=== PATIENT | male | born 1955 | race Caucasian/White ===

== ENCOUNTER → 2018-10-25 | Outpatient (CLI) | payer SELFPAY ==
[2015-11-28 20:03] VITALS: BMI 33.9
[2018-10-25 13:56] LABS: AST(SGOT) 24 U/L (15-37); Alanine Aminotransfer ALT/SGPT 33 U/L (16-61); Albumin, Serum 3.7 g/dL (3.2-5.0); Alkaline Phosphatase 87 U/L (45-117); Anion Gap 7 (5-15); BUN 12 mg/dL (7-18); BUN/Creat Ratio 10.7 RATIO (10-20); Calcium,Total 8.9 mg/dL (8.5-10.1); Chloride 104 mmol/L (98-107); Cholesterol 182 mg/dL (200); Creatinine, Serum 1.12 mg/dL (0.70-1.30); EST Glomerular Filtration Rate 71 mL/min (>60); Est Glom Filt Rate - Afr Amer 86 mL/min (>60); Globulin 3.8 g/dL (2.2-4.2); Glucose 144 mg/dL (74-106); High Density Lipoprotein 41 mg/dL; Potassium 3.7 mmol/L (3.5-5.1); Protein, Total 7.5 g/dL (6.4-8.2); Sodium Level 139 mmol/L (136-145); Triglycerides 144 mg/dL; Very Low Density Lipoprotein 29 mg/dL (5-40)
== END | disposition home or self-care (01) ==
PROVIDERS: Visit Provider Nurse Practitioner Family
DX: Z00.00 Encounter for general adult medical examination without abnormal findings (principal)
CPT/HCPCS: 36415; 80053; 80061

== ENCOUNTER → 2021-01-09 | Outpatient (CLI) | payer MEDICARE, SELFPAY | END | disposition home or self-care (01) | LOC: LABSPEC 16:29 | PROVIDERS: PCP Family Medicine; Referring Provider Family Medicine; Visit Provider Family Medicine | DX: U07.1 COVID-19 (principal) | CPT/HCPCS: 87635; U0005; U0003 ==

== ENCOUNTER 2021-01-11 08:13 | Inpatient (IN) | payer MEDICARE, SELFPAY ==
[2021-01-11] VITALS (21 sets, daily range): BP systolic 130–161; BP diastolic 80–112; PULSE 57–102; RESP 14–31; TEMP 36.2–38; O2SAT 85–94; BMI 36.1; BMI 78.4
--- NOTE | 2021-01-11 08:20 | RAD_ITS ---
STUDY: X-RAY CHEST REASON FOR EXAM: Male, 65 years old. Fever and cough TECHNIQUE: Single AP portable view of the chest. COMPARISON: None. FINDINGS: EKG leads overlie the chest Lungs are expanded with diffuse interstitial and airspace opacifications in both lung ochoa. No demonstrated effusions. This pattern of opacification is suspicious for Covid pneumonia, but can also be seen with pneumonitis or CHF. Normal size heart. Normal mediastinum and ajay. Normal visualized pulmonary arteries. Normal visualized aortic arch and descending thoracic aorta. Normal visualized thoracic spine. Normal visualized ribs, clavicles, and shoulders. There is no demonstrated abnormality of the visualized soft tissue structures of the upper abdomen. RAD/Chest 1 View (Portable) IMPRESSION: Diffuse interstitial and airspace opacifications in both lung ochoa without effusions. Differential as described. Electronically Signed: John Painter MD at 9:04 EDT , Service support ,
--- NOTE | 2021-01-11 08:20 | EKG12_ITS ---
Test Reason : SOB Blood Pressure : / mmHG Vent. Rate : 098 BPM Atrial Rate : 098 BPM P-R Int : 126 ms QRS Dur : 088 ms QT Int : 364 ms P-R-T Axes : 017 -29 -32 degrees QTc Int : 464 ms Normal sinus rhythm Voltage criteria for left ventricular hypertrophy Nonspecific ST and T wave abnormality Abnormal ECG Confirmed by HARRIET ORR, AVI ([id number]), art editor BAYLEE LEWIS ([id number]) on 01/13/2021 1:20:41 PM Referred By: RACHEL Confirmed By:AVI LARIOS MD
[2021-01-11 08:34] LABS: Absolute Lymphocyte Count 1.16 X10^3/uL (0.83-4.51); Absolute Neutrophil Count 2.9 X10^3/uL (2.0-7.7); Basophil# 0.02 X10^3/uL; Basophil% 0.4 % (0-1); Hematocrit 49.6 % (40-54); Hemoglobin 17.5 g/dL (13.0-16.5); Lymphocyte # 1.16 X10^3/ul (0.83-4.51); Lymphocyte % 24.7 % (19-41); Mean Corp Hgb Conc 35.3 g/dL (32-36); Mean Corpuscular Hgb 31.5 pg (27.0-32.0); Mean Corpuscular Volume 89.4 fL (80-94); Mean Platelet Vol. 10.9 fl (6.2-12.0); Monocyte# 0.56 X10^3/uL; Monocyte% 11.9 % (0-10); NRBC Flagged by Analyzer 0 % (0-5); Neutrophil # 2.92 X10^3/uL (2.7-7.7); Neutrophil % 62.4 % (47-70); Platelet Count 157 K/mm3 (150-450); RBC Distribution Width CV 13.2 % (11.6-14.6); Red Blood Count 5.55 M/mm3 (4.6-6.2); White Blood Count 4.7 K/mm3 (4.4-11.0)
[2021-01-11 08:50] LABS: ALB/GLOB Ratio 0.6 RATIO (0.9-2.4); AST(SGOT) 98 U/L (15-37); Alanine Aminotransfer ALT/SGPT 86 U/L (16-61); Alkaline Phosphatase 120 U/L (45-117); Anion Gap 9 (5-15); BUN 15 mg/dL (7-18); Calcium,Total 8.7 mg/dL (8.5-10.1); Chloride 99 mmol/L (98-107); Creatinine, Serum 1.15 mg/dL (0.70-1.30); EST Glomerular Filtration Rate 68 mL/min (>60); Est Glom Filt Rate - Afr Amer 83 mL/min (>60); Estimated Creatinine Clearance 72.16 ml/min; Glucose 109 mg/dL (74-106); Potassium 3.3 mmol/L (3.5-5.1); Sodium Level 136 mmol/L (136-145)
--- NOTE | 2021-01-11 08:50 | EDS_ITS ---
HPI History of Present Illness Chief Complaint: Shortness of Breath Informant: patient Onset/Context/Timing Onset: Days (10) Timing: Continuous Quality: Positive for Wheezing Worsened by: Nothing Relieved by: Nothing Associated Symptoms cough, fever and clear sputum; Negative for rhinorrhea, ear pain or sore throat Chest Pain: Positive for - (Patient only has chest pain with coughing.) Narrative Narrative: Patient presents with shortness of breath that has been getting worse over the past 10 days. Patient states family members have been diagnosed with COVID-19. Patient has not been vaccinated against COVID-19. Patient admits to fevers at home. Patient admits to cough with clear sputum. Patient states nothing makes his breathing better and nothing makes it worse. Patient denies any nausea or vomiting. Patient admits to diarrhea. Patient denies any melena or hematochezia. Patient denies any chest pain, he only states that it comes on when he coughs. PE Risk Factors: Negative for Cancer, OCP + Smoking + > 35, Prior DVT or PE, Recent surgery and Recent travel [facility] Medical History Hypertension Home Medications hydrochlorothiazide 12.5 mg PO DAILY 11/28/15 [History Last Taken Unknown] oxycodone-acetaminophen 1 - 2 tab PO Q4H PRN PRN #12 tab 11/28/15 [Rx Last Taken Unknown] paroxetine HCl 20 mg PO DAILY 11/28/15 [History Last Taken Unknown] ramipril [Altace] 10 mg PO DAILY 11/28/15 [History Last Taken Unknown] tamsulosin 0.4 mg PO DAILY 14 Days capsule 11/28/15 [Rx Last Taken Unknown] Allergy/AdvReac Type Severity Reaction Status Date / Time No Known Allergies Allergy Verified 11/28/15 20:22 Surgical History no surgical history no surgical history Social History Smoking Status: Former smoker ROS ROS ED Constitutional Constitutional ED: Reports fever(s); Denies chills Eyes Eyes: Denies blurry vision or change in vision ENT ENT ED: Denies rhinorrhea or sore throat Cardiovascular Cardiovascular: Denies chest pain or palpitations Respiratory/Chest Respiratory/Chest: Reports cough and dyspnea Gastrointestinal Gastrointestinal: Reports diarrhea; Denies nausea or vomiting Genitourinary Genitourinary ED: Denies dysuria or hematuria Musculoskeletal Musculoskeletal: Denies back pain or neck pain Integumentary Denies abscess or rash Neurologic Neurologic: Denies headache(s) or weakness Allergic/Immunologic Allergic/Immunologic ED: Denies mouth swelling or urticaria EXAM Physical Exam Const Vital Signs: 01/11/21 08:15 01/11/21 08:18 Temperature 100.4 F H 98.9 F Temperature Source Temporal Temporal Pulse Rate 83 83 Respiratory Rate 31 H 31 H Respiratory Effort Short of Breath Labored Blood Pressure 161/103 H 161/103 H Blood Pressure Mean 122 122 Pulse Ox 85 85 Oxygen Delivery Method Nasal Cannula Oxygen Flow Rate (L/min) 15 Positive well nourished and well developed General Appearance ED: well developed HEENT Reports moist mucous membranes Neck supple and no JVD Resp normal respiratory effort Auscultation: rhonchi lower bilaterally Cardio regular rate, regular rhythm and no murmurs GI normal to inspection, nondistended, normoactive bowel sounds and non-tender Palpation: soft Extremity normal to inspection General Extremety ED: Negative for edema or tenderness General Extremity: Negative for edema Neuro oriented x3, CN's II-XII intact bilaterally and no sensory deficits noted Sensorium / Orientation: alert Motor Exam: strength 5/5 throughout Psych mental status grossly normal Skin no rashes or lesions noted MDM MDM MDM Narrative Medical decision making narrative: Patient was placed on high flow nasal cannula at 15 L. Patient's initial pulse ox improved to 90% on this. Patient's pulse ox dropped to 85. Patient was then placed on BiPAP at 10 and 5. Patient was given Tylenol here. Patient was given dexamethasone here. Patient was given 6 puffs of albuterol inhaler. EKG was obtained. On my interpretation, it showed a normal sinus rhythm with a rate of 98. TN interval, QRS interval, and QTc intervals were all normal. [place] was normal. There are nonspecific ST-T wave changes. There is evidence of left ventricular hypertrophy. Portable chest x- ray was obtained. There is 1 view. On my interpretation, there is bilateral lower lobe infiltrates. There is no cardiomegaly. Bony thorax is normal. Radiologist also interpreted the x-rays and agrees. CBC was essentially within normal limits. Comprehensive metabolic profile showed a mild hypokalemia 3.3. AST was slightly elevated at 98. ALT was slightly elevated at 86. Alk phos was slightly elevated at 120. Lactate was normal at 1.9. Case was discussed with the hospitalist. He will admit the patient to his service. Lab Data Attestation: I reviewed the patient's lab results. Labs: Laboratory Results - last 24 hr 01/11/21 08:20 WBC 4.7 RBC 5.55 Hgb 17.5 H Hct 49.6 MCV 89.4 MCH 31.5 MCHC 35.3 RDW Std Deviation 43.0 RDW Coeff of Anusha 13.2 Plt Count 157 MPV 10.9 Immature Gran % (Auto) 0.600 Neut % (Auto) 62.4 Lymph % (Auto) 24.7 [place] % (Auto) 11.9 H Eos % (Auto) 0.0 Baso % (Auto) 0.4 Absolute Neuts (auto) 2.9 Absolute Lymphs (auto) 1.16 Nucleated RBC % 0 Radiography Chest X-Ray - ED: 1 View, Read by ED Physician, Read by Radiologist, Right Infiltrate and Left Infiltrate EKG Initial EKG: Attestation: I personally reviewed and interpreted this EKG as follows: Interpretation: Sinus Rhythm (98), No Acute Injury Pattern and Non- Specific ST Changes Comments: Left ventricular hypertrophy Prior EKG tracings: not available for review Treatment and Re-Evaluation Vital Sign Attestation:: Vital signs were reviewed prior to admission. They are improving. Critical Care Time Critical Care Time: Yes Critical care time (excluding procedures): 30-74 minutes (32), Including time spent:, Discussing w/Patient &/or Family/Head Swamper, Discussing w/Consultants, Arranging Admission or Transfer and Performing Direct Patient Care at Bedside Discharge Plan Dx/Rx/DC Orders Clinical Impression: Pneumonia due to COVID-19 virus, Hypoxia Disposition Disposition: Acute Care Hospital [facility]
[2021-01-11] MEDS: dexAMETHasone 4 MG/ML Vial 6 MG IV ×2 (08:52→13:08)
[2021-01-11] MEDS: Acetaminophen 500 MG Tablet 1000 MG PO (08:53)
[2021-01-11 09:03] LABS: Lactic Acid 1.9 mmol/L (0.4-1.9)
--- NOTE | 2021-01-11 09:46 | ED.RN ---
report called to farrukh narvaez
--- NOTE | 2021-01-11 10:55 | HP.PCM.HOS_ITS ---
HPI - General General Date of Admission: 01/11/21 Date of Service: 01/11/21 Chief Complaint: Shortness of breath HPI Narrative HERIBERTO LOMELI, is a 65 M who presents emergency room at [facility] with a chief complaint of shortness of breath. Patient states he has been feeling ill for approximately 10 days, several family members have tested positive for COVID-19, patient is unvaccinated. Patient complains of some diarr hea, he denies any nausea or vomiting. He admits to feeling feverish at home, he admits to cough with clear sputum production. Lab work done in the emergency room showed the patient have a normal white blood cell count, his temperature was 100.4, patient required nasal cannula oxygen at 15 L to maintain his pulse ox initially when he was admitted to the emergency room. Chemistry profile revealed a potassium of 3.3, patient's liver enzymes were elevated with an AST of 98, ALT of 86, alkaline phosphatase of 120. Patient had a chest x-ray which showed diffuse bilateral infiltrates. Patient was transitioned to BiPAP in the ER to maintain his oxygenation. Patient will be admitted to ICU for COVID-19 pneumonia with acute hypoxic respiratory failure. Patient will be seen by infectious diseases and critical care. [facility] Medical History Hypertension Home Medications hydrochlorothiazide 12.5 mg PO DAILY 11/28/15 [History Last Taken Unknown] oxycodone-acetaminophen 1 - 2 tab PO Q4H PRN PRN #12 tab 11/28/15 [Rx Last Taken Unknown] paroxetine HCl 20 mg PO DAILY 11/28/15 [History Last Taken Unknown] ramipril [Altace] 10 mg PO DAILY 11/28/15 [History Last Taken Unknown] tamsulosin 0.4 mg PO DAILY 14 Days capsule 11/28/15 [Rx Last Taken Unknown] Allergy/AdvReac Type Severity Reaction Status Date / Time No Known Allergies Allergy Verified 11/28/15 20:22 Family History unable to obtain Surgical History no surgical history Social History Smoking Status: Current some day smoker tobacco type: cigars ROS Constitutional Constitutional: Reports chills, fatigue, fever(s), malaise and weakness; Denies anorexia, change in weight or night sweats Eyes Eyes: Denies blurry vision, change in vision, discharge from eye(s) or eye pain Cardiovascular Cardiovascular: Denies chest pain, claudication, edema or palpitations Respiratory/Chest Respiratory/Chest: Reports cough, shortness of breath at rest and shortness of breath with exertion Gastrointestinal Gastrointestinal: Reports diarrhea; Denies abdominal pain, coffee ground emesis, constipation, dyspepsia, hematemesis, hematochezia, melena, nausea or vomiting Genitourinary Genitourinary: Denies dysuria, hematuria, urinary frequency, urinary hesitancy, urinary incontinence or urinary urgency Musculoskeletal Musculoskeletal: Denies back pain, joint pain, joint stiffness, joint swelling, myalgias or neck pain Neurologic Neurologic: Denies abnormal gait, abnormal speech, confusion, disequilibrium, dizziness, focal weakness, headache(s), loss of vision, numbness, other visual disturbances, paresthesias, syncope or tingling Psychiatric Psychiatric: Denies anxiety, cognitive impairment, depression, irritability, mood swings or suicidal ideation Endocrine Endocrinology: Denies change in body appearance, cold intolerance, excessive sweating, heat intolerance, polydipsia or polyuria Hematologic/Lymphatic Hematologic/Lymphatic: Denies none, anemia, easy bleeding, easy bruising or lymphadenopathy Allergic/Immunologic Allergic/Immunologic: Denies rhinitis, urticaria, eczemia or asthma Vital Signs Vital Signs Vital Signs: 01/11/21 08:15 01/11/21 08:18 01/11/21 08:56 Temperature 100.4 F H 98.9 F Temperature Source Temporal Temporal Pulse Rate 83 83 98 Respiratory Rate 31 H 31 H 20 H Respiratory Effort Short of Breath Labored Respiratory Pattern Tachypnea Blood Pressure 161/103 H 161/103 H Blood Pressure [BP] Blood Pressure Mean 122 122 Blood Pressure Mean [BP] Blood Pressure Source Blood Pressure Source [BP] Blood Pressure Position Blood Pressure Position [BP] Blood Pressure Location Blood Pressure Location [BP] Pulse Ox 85 85 92 Oxygen Delivery Method Nasal Cannula Oxygen Flow Rate (L/min) 15 Fraction of Inspired Oxygen (FIO2) 80 01/11/21 08:57 01/11/21 09:05 01/11/21 09:42 Temperature 98.9 F Temperature Source Temporal Pulse Rate 102 H Respiratory Rate 25 H Respiratory Effort Respiratory Pattern Blood Pressure 137/85 H Blood Pressure [BP] Blood Pressure Mean 102 Blood Pressure Mean [BP] Blood Pressure Source Blood Pressure Source [BP] Blood Pressure Position Blood Pressure Position [BP] Blood Pressure Location Blood Pressure Location [BP] Pulse Ox 87 92 92 Oxygen Delivery Method Nasal Cannula Bi-pap Bi-pap Oxygen Flow Rate (L/min) 15 Fraction of Inspired Oxygen (FIO2) 01/11/21 10:05 Temperature 97.2 F L Temperature Source Temporal Pulse Rate 86 Respiratory Rate 20 H Respiratory Effort Respiratory Pattern Blood Pressure 159/89 H Blood Pressure [BP] 159/89 H Blood Pressure Mean 112 Blood Pressure Mean [BP] 112 Blood Pressure Source Monitor Blood Pressure Source [BP] Monitor Blood Pressure Position Semi-Fowlers Blood Pressure Position [BP] Semi-Fowlers Blood Pressure Location Right Arm Blood Pressure Location [BP] Left Arm Pulse Ox 92 Oxygen Delivery Method Bi-pap Oxygen Flow Rate (L/min) Fraction of Inspired Oxygen (FIO2) 30 Weight Weight: 262.2 kg Body Mass Index (BMI) 78.4 Physical Exam Const alert, oriented x3, no apparent distress, average body habitus and healthy appearing General Appearance: cooperative, well kempt and well developed Orientation / Consciousness: awake, oriented to person, oriented to place and oriented to time HEENT normocephalic, head/scalp atraumatic, hearing grossly normal bilaterally and moist oral mucous membranes Eyes PERRL, EOMs intact bilaterally and conjunctivae normal Neck nuchal rigidity, supple, no JVD, thyroid normal and no carotid bruits General: trachea midline Resp normal respiratory effort, no retractions and no use of accessory muscles Resp Narrative: Patient's breath sounds are distant bilaterally Auscultation: Negative for rales, rhonchi or wheezes Cardio regular rate, regular rhythm, S1 normal heart sound, S2 normal heart sound, no murmurs, no rub and no gallops GI normal to inspection, nondistended, normoactive bowel sounds, soft to palpation, non-tender and non-distended Extremity normal to inspection and no clubbing, cyanosis or edema Skin no rashes or lesions noted, no wounds, skin turgor normal and no jaundice General Skin Exam: no breakdown Neuro oriented x3, CN's II-XII intact bilaterally, no focal motor deficits and no sensory deficits noted Sensorium / Orientation: awake and alert Speech: speech normal Psych thought process normal and affect normal Results Lab / Micro Data Result Diagrams: 01/11/21 08:20 01/11/21 08:20 Labs: Laboratory Results - last 24 hr 01/11/21 08:20: WBC 4.7, RBC 5.55, Hgb 17.5 H, Hct 49.6, MCV 89.4, MCH 31.5, MCHC 35.3, RDW Std Deviation 43.0, RDW Coeff of Anusha 13.2, Plt Count 157, MPV 10.9, Immature Gran % (Auto) 0.600, Neut % (Auto) 62.4, Lymph % (Auto) 24.7, [place] % (Auto) 11.9 H, Eos % (Auto) 0.0, Baso % (Auto) 0.4, Absolute Neuts (auto) 2.9, Absolute Lymphs (auto) 1.16, Nucleated RBC % 0 01/11/21 08:20: Sodium 136, Potassium 3.3 L, Chloride 99, Carbon Dioxide 28.0, Anion Gap 9, BUN 15, Creatinine 1.15, Estim Creat Clear Calc 72.16, Est GFR (MDRD) Af Amer 83, Est GFR (MDRD) Non-Af 68, BUN/Creatinine Ratio 13.0, Glucose 109 H, Calcium 8.7, Total Bilirubin 1.00, AST 98 H, ALT 86 H, Alkaline Phosphatase 120 H, Total Protein 8.0, Albumin 3.0 L, Globulin 5.0 H, Albumin/Globulin Ratio 0.6 L 01/11/21 08:20: Lactic Acid 1.9 Micro: Microbiology 01/11/21 08:30 Nasal Secretion SARS-CoV-2 Antigen (Rapid) - Final SARS-CoV-2 (COVID 19) Radiology Impression Chest X-Ray 01/11/21 08:20 IMPRESSION: Diffuse interstitial and airspace opacifications in both lung ochoa without effusions. Differential as described. Electronically Signed: John Painter MD at 9:04 EDT , Service support , Assessment & Plan Assessment/Plan (1) Pneumonia due to COVID-19 virus: PLAN: 1. COVID-19 pneumonia-I contacted infectious diseases, they have approved the use of baricitinib on this patient, patient will be admitted to the ICU, in addition he will be placed on remdesivir and dexamethasone, critical care will see the patient as well as infectious diseases. #2 acute hypoxic respiratory failure-patient currently is on BiPAP #3 hypokalemia-patient will receive oral potassium supplementation #4 hypertension-patient is on hydrochlorothiazide, I have elected to place the patient on Lasix instead on a daily basis, he will get Lasix 20 mg p.o. daily. Patient wants to be a full code Charges/Coding Visit Charges Inpatient E&M: 15139 Init Hosp L3
[2021-01-11 11:10] LABS: D-Dimer Quantitative (DVT/PE) 0.85 FEU/ug/m (0.27-0.49)
[2021-01-11] MEDS: Enoxaparin 40 MG/0.4 ML Syringe SC (13:05)
[2021-01-11] MEDS: Tamsulosin HCl 0.4 MG Capsule PO (13:06)
[2021-01-11] MEDS: Potassium Chloride Oral Tablet 20 MEQ 40 MEQ PO (13:06)
[2021-01-11] MEDS: Ramipril 10 MG Capsule PO (13:06)
[2021-01-11] MEDS: Furosemide 20 MG Tablet PO (13:07)
[2021-01-11] MEDS: Paroxetine 20 MG Tablet PO (13:07)
[2021-01-12] VITALS (29 sets, daily range): BP systolic 100–143; BP diastolic 35–117; PULSE 59–92; RESP 14–29; TEMP 36.2–36.6; O2SAT 21–95
[2021-01-12 05:08] LABS: Absolute Lymphocyte Count 1.05 X10^3/uL (0.83-4.51); Absolute Neutrophil Count 2.1 X10^3/uL (2.0-7.7); Basophil# 0.02 X10^3/uL; Basophil% 0.5 % (0-1); Hematocrit 47.7 % (40-54); Hemoglobin 16.4 g/dL (13.0-16.5); Lymphocyte # 1.05 X10^3/ul (0.83-4.51); Lymphocyte % 26.6 % (19-41); Mean Corp Hgb Conc 34.4 g/dL (32-36); Mean Corpuscular Volume 90.2 fL (80-94); Mean Platelet Vol. 10.8 fl (6.2-12.0); Monocyte# 0.77 X10^3/uL; Monocyte% 19.5 % (0-10); NRBC Flagged by Analyzer 0 % (0-5); Neutrophil # 2.08 X10^3/uL (2.7-7.7); Neutrophil % 52.9 % (47-70); POSITIVE MORPHOLOGY YES; Platelet Count 182 K/mm3 (150-450); RBC Distribution Width CV 13.4 % (11.6-14.6); RBC Distribution Width SD 44.7 fl (35.1-43.9); Red Blood Count 5.29 M/mm3 (4.6-6.2); White Blood Count 3.9 K/mm3 (4.4-11.0)
[2021-01-12 05:09] LABS: Differential Indicated SCAN CRITERIA MET
[2021-01-12 05:34] LABS: ALB/GLOB Ratio 0.6 RATIO (0.9-2.4); AST(SGOT) 92 U/L (15-37); Alanine Aminotransfer ALT/SGPT 92 U/L (16-61); Albumin, Serum 2.7 g/dL (3.2-5.0); Alkaline Phosphatase 106 U/L (45-117); Anion Gap 9 (5-15); BUN 28 mg/dL (7-18); BUN/Creat Ratio 15.6 RATIO (10-20); Calcium,Total 8.5 mg/dL (8.5-10.1); Chloride 101 mmol/L (98-107); Creatinine, Serum 1.79 mg/dL (0.70-1.30); EST Glomerular Filtration Rate 41 mL/min (>60); Est Glom Filt Rate - Afr Amer 50 mL/min (>60); Estimated Creatinine Clearance 46.36 ml/min; Globulin 4.7 g/dL (2.2-4.2); Glucose 133 mg/dL (74-106); Potassium 3.7 mmol/L (3.5-5.1); Protein, Total 7.4 g/dL (6.4-8.2); Sodium Level 138 mmol/L (136-145)
--- NOTE | 2021-01-12 06:42 | CON.PCM.CC_ITS ---
Assessment & Plan Assessment/Plan (1) Pneumonia due to COVID-19 virus: PLAN: RECOMMENDATIONS: 1. Continue BiPAP therapy and wean FiO2 for saturations greater than 90%. 2. Continue remdesivir to complete 5-day treatment course. Continue to monitor liver and renal function. 3. Continue Decadron to complete 10 days of therapy. 4. Continue baricitinib per ID recommendations. 5. Discontinue Lasix, given interval development of CASSANDRA. 6. Increase Lovenox dosing to twice daily. 7. Awake prone positioning was encouraged. 8. Patient should remain n.p.o., while requiring continuous PAP support. IMPRESSIONS: 1. Acute hypoxemic respiratory failure secondary to COVID-19 pneumonia Continue supportive measures including noninvasive positive pressure ventilatory support and wean FiO2 as tolerated for saturations greater than 90%. The patient has been initiated on appropriate medical therapy including remdesivir, Decadron, Lovenox and baricitinib. Continue to monitor liver and renal function. Recommend holding diuretics for now given interval development of CASSANDRA. His Lovenox dosing will also be increased to twice daily. 2. Acute kidney injury Likely prerenal in etiology. Lasix was discontinued today. Continue to monitor urine output for now. No current indication for renal replacement therapy. TIME: 34 minutes of critical care time, independent of procedures, was spent addressing the patient's acute hypoxemic respiratory failure secondary to COVID- 19 pneumonia, acute kidney injury, review of all data and collaboration with the care team. ([id number]) HPI Consult Data Date of Consult: 01/12/21 HPI Narrative Reason for Consultation: Acute hypoxemic respiratory failure secondary to COVID- 19 pneumonia HPI Narrative: The patient is a 65-year-old male, with a history as outlined below, who presented to the emergency department on January 11 with worsening shortness of breath and nonproductive cough. Symptom onset was approximately January 01. The patient has noted associated fevers and diarrhea. The patient is unvaccinated. Several family members have recently tested positive for COVID-19. On presentation to the emergency department, the patient was noted to have a low-grade fever but was otherwise hemodynamically stable. The patient was, nevertheless, tachypneic and hypoxemic. Initial laboratory evaluation revealed no evidence of a leukocytosis. D-dimer was noted to be 0.85. Chemistry profile was notable for a potassium of 3.3. Creatinine was normal at 1.15. Lactate was within normal limits. AST and ALT were mildly increased to 98 and 86, respectively. Chest imaging demonstrated diffuse bilateral airspace disease. Rapid coronavirus antigen testing was positive on January 11. The patient was subsequently admitted to the medical intensive care unit for further management. Overnight, the patient was placed on BiPAP and is currently requiring 70% FiO2. The patient has been started on remdesivir, Decadron, Lovenox and baricitinib. Creatinine has increased this morning to 1.79. Liver function is stable. [facility] Medical History Hypertension Home Medications hydrochlorothiazide 12.5 mg PO DAILY 11/28/15 [History Last Taken Unknown] oxycodone-acetaminophen 1 - 2 tab PO Q4H PRN PRN #12 tab 11/28/15 [Rx Last Taken Unknown] paroxetine HCl 20 mg PO QHS 11/28/15 [History Last Taken Unknown] ramipril [Altace] 10 mg PO DAILY 11/28/15 [History Last Taken Unknown] tamsulosin 0.4 mg PO DAILY 14 Days capsule 11/28/15 [Rx Last Taken Unknown] Allergy/AdvReac Type Severity Reaction Status Date / Time No Known Allergies Allergy Verified 11/28/15 20:22 Family History unable to obtain Surgical History no surgical history Social History Smoking Status: Current some day smoker tobacco type: cigars ROS Constitutional Constitutional: Reports chills, fatigue and fever(s) Eyes Eyes: Denies blurry vision or change in vision ENT HEENT: Denies dizziness, epistaxis, nasal congestion or nasal discharge Cardiovascular Cardiovascular: Reports dyspnea; Denies edema Respiratory/Chest Respiratory/Chest: Reports cough and dyspnea Gastrointestinal Gastrointestinal: Reports diarrhea; Denies nausea or vomiting Genitourinary Genitourinary: Denies difficulty urinating or dysuria Musculoskeletal Musculoskeletal: Denies arthralgias or back pain Integumentary Integumentary: Denies lesions, rash or skin ulcer Neurologic Neurologic: Denies abnormal gait or abnormal speech Psychiatric Psychiatric: Denies anxiety or depression Endocrine Endocrinology: Reports fatigue Hematologic/Lymphatic Hematologic/Lymphatic: Denies easy bleeding or easy bruising Physical Exam Const alert General Appearance: cooperative, comfortable and on BiPAP Nutritional Appearance: obese HEENT normocephalic, head/scalp atraumatic and moist oral mucous membranes Eyes PERRL, EOMs intact bilaterally and conjunctivae normal Neck supple General: trachea midline Chest inspection of chest normal Resp no use of accessory muscles Effort and Inspection: able to speak in complete sentences Auscultation: diminished lung sounds; Negative for rales, rhonchi or wheezes Cardio regular rate and regular rhythm GI normal to inspection, nondistended, normoactive bowel sounds Extremity no clubbing, cyanosis or edema Skin no rashes or lesions noted Neuro CN's II-XII intact bilaterally, moves all extremities and no focal motor deficits Psych cooperative and affect normal Lab / Micro Data Result Diagrams: 01/12/21 04:58 01/12/21 04:58 Labs: Laboratory Results - last 24 hr 01/11/21 08:20: WBC 4.7, RBC 5.55, Hgb 17.5 H, Hct 49.6, MCV 89.4, MCH 31.5, MCHC 35.3, RDW Std Deviation 43.0, RDW Coeff of Anusha 13.2, Plt Count 157, MPV 10.9, Immature Gran % (Auto) 0.600, Neut % (Auto) 62.4, Lymph % (Auto) 24.7, [place] % (Auto) 11.9 H, Eos % (Auto) 0.0, Baso % (Auto) 0.4, Absolute Neuts (auto) 2.9, Absolute Lymphs (auto) 1.16, Nucleated RBC % 0 01/11/21 08:20: Sodium 136, Potassium 3.3 L, Chloride 99, Carbon Dioxide 28.0, Anion Gap 9, BUN 15, Creatinine 1.15, Estim Creat Clear Calc 72.16, Est GFR (MDRD) Af Amer 83, Est GFR (MDRD) Non-Af 68, BUN/Creatinine Ratio 13.0, Glucose 109 H, Calcium 8.7, Total Bilirubin 1.00, AST 98 H, ALT 86 H, Alkaline Phosphatase 120 H, Total Protein 8.0, Albumin 3.0 L, Globulin 5.0 H, Albumin/Globulin Ratio 0.6 L 01/11/21 08:20: Lactic Acid 1.9 01/11/21 08:20: D-Dimer Quant (PE/DVT) 0.85 H* 01/12/21 04:58: WBC 3.9 L, RBC 5.29, Hgb 16.4, Hct 47.7, MCV 90.2, MCH 31.0, MCHC 34.4, RDW Std Deviation 44.7 H, RDW Coeff of Anusha 13.4, Plt Count 182, MPV 10.8, Immature Gran % (Auto) 0.500, Neut % (Auto) 52.9, Lymph % (Auto) 26.6, [place] % (Auto) 19.5 H, Eos % (Auto) 0.0, Baso % (Auto) 0.5, Absolute Neuts (auto) 2.1, Absolute Lymphs (auto) 1.05, Nucleated RBC % 0 01/12/21 04:58: Sodium 138, Potassium 3.7, Chloride 101, Carbon Dioxide 28.0, Anion Gap 9, BUN 28 H, Creatinine 1.79 H, Estim Creat Clear Calc 46.36, Est GFR (MDRD) Af Amer 50 L, Est GFR (MDRD) Non-Af 41 L, BUN/Creatinine Ratio 15.6, Glucose 133 H, Calcium 8.5, Total Bilirubin 0.80, AST 92 H, ALT 92 H, Alkaline Phosphatase 106, Total Protein 7.4, Albumin 2.7 L, Globulin 4.7 H, Albumin/Globulin Ratio 0.6 L Micro: Microbiology 01/11/21 08:30 Nasal Secretion SARS-CoV-2 Antigen (Rapid) - Final SARS-CoV-2 (COVID 19) Radiology Impression Chest X-Ray 01/11/21 08:20 IMPRESSION: Diffuse interstitial and airspace opacifications in both lung ochoa without effusions. Differential as described. Electronically Signed: John Painter MD at 9:04 EDT , Service support , Charges/Coding Procedures Hospitalists Procedures: [id number] Critial Care 1st Hr
[2021-01-12 07:00] LABS: Atypical Lymphocyte 1+ %; Reactive Lymphocyte 1+
[2021-01-12] MEDS: Enoxaparin 40 MG/0.4 ML Syringe SC ×2 (09:29→21:10)
[2021-01-12] MEDS: Ramipril 10 MG Capsule PO (09:30)
[2021-01-12] MEDS: Paroxetine 20 MG Tablet PO (09:30)
[2021-01-12] MEDS: Tamsulosin HCl 0.4 MG Capsule PO ×2 (09:30→21:09)
--- NOTE | 2021-01-12 17:00 | PN.HOSP_ITS ---
Subjective Subjective Patient was seen and examined today in ICU, he remains on Airvo at this time, he does not complain of any shortness of breath at rest Objective Data Objective Data Vital Signs: Vital Signs Temp Pulse Resp BP Pulse Ox 97.1 F L 72 22 H 112/67 91 01/12/21 08:00 01/12/21 16:56 01/12/21 16:56 01/12/21 16:00 01/12/21 16:56 Oxygen Flow Rate (L/min) 60 Oxygen Delivery Method Airvo Weight: 118.932 kg Body Mass Index (BMI) 78.4 Intake & Output: Intake and Output for Last 24 Hours 01/10/21 01/11/21 01/12/21 23:59 23:59 23:59 Intake Total 650 / 650 550 / 550 Output Total 300 / 300 Balance 350 / 350 550 / 550 Lab / Micro Data Result Diagrams: 01/12/21 04:58 01/12/21 04:58 Labs: Laboratory Results - last 24 hr 01/12/21 04:58: WBC 3.9 L, RBC 5.29, Hgb 16.4, Hct 47.7, MCV 90.2, MCH 31.0, MCHC 34.4, RDW Std Deviation 44.7 H, RDW Coeff of Anusha 13.4, Plt Count 182, MPV 10.8, Immature Gran % (Auto) 0.500, Neut % (Auto) 52.9, Lymph % (Auto) 26.6, [place] % (Auto) 19.5 H, Eos % (Auto) 0.0, Baso % (Auto) 0.5, Absolute Neuts (auto) 2.1, Absolute Lymphs (auto) 1.05, Nucleated RBC % 0, Diff Path Review May foll, Atypical Lymphocytes 1+, Reactive Lymphocytes 1+ 01/12/21 04:58: Sodium 138, Potassium 3.7, Chloride 101, Carbon Dioxide 28.0, Anion Gap 9, BUN 28 H, Creatinine 1.79 H, Estim Creat Clear Calc 46.36, Est GFR (MDRD) Af Amer 50 L, Est GFR (MDRD) Non-Af 41 L, BUN/Creatinine Ratio 15.6, Glucose 133 H, Calcium 8.5, Total Bilirubin 0.80, AST 92 H, ALT 92 H, Alkaline Phosphatase 106, Total Protein 7.4, Albumin 2.7 L, Globulin 4.7 H, Albumin/Globulin Ratio 0.6 L 01/12/21 04:58: C-React Prot Ext Range 71.40 H Micro: Microbiology 01/11/21 08:30 Nasal Secretion SARS-CoV-2 Antigen (Rapid) - Final SARS-CoV-2 (COVID 19) Physical Exam Narrative alert, oriented x3, no apparent distress, average body habitus and healthy appearing General Appearance: cooperative, well kempt and well developed Orientation / Consciousness: awake, oriented to person, oriented to place and oriented to time HEENT normocephalic, head/scalp atraumatic, hearing grossly normal bilaterally and moist oral mucous membranes Eyes PERRL, EOMs intact bilaterally and conjunctivae normal Neck nuchal rigidity, supple, no JVD, thyroid normal and no carotid bruits General: trachea midline Resp normal respiratory effort, no retractions and no use of accessory muscles Resp Narrative: Patient's breath sounds are distant bilaterally Auscultation: Negative for rales, rhonchi or wheezes Cardio regular rate, regular rhythm, S1 normal heart sound, S2 normal heart sound, no murmurs, no rub and no gallops GI normal to inspection, nondistended, normoactive bowel sounds, soft to palpation, non-tender and non-distended Extremity normal to inspection and no clubbing, cyanosis or edema Skin no rashes or lesions noted, no wounds, skin turgor normal and no jaundice General Skin Exam: no breakdown Neuro oriented x3, CN's II-XII intact bilaterally, no focal motor deficits and no sensory deficits noted Sensorium / Orientation: awake and alert Speech: speech normal Psych thought process normal and affect normal Assessment & Plan Assessment/Plan (1) Pneumonia due to COVID-19 virus: PLAN: 1. COVID-19 pneumonia-patient remains on remdesivir, dexamethasone, and baricitinib, pulmonary medicine is participating in his care #2 acute hypoxic respiratory failure-patient currently is on Airvo #3 hypokalemia-resolved #4 hypertension. #5 acute kidney injury-patient's diuretics will be held for now Patient wants to be a full code Charges/Coding Visit Charges Inpatient E&M: 75553 Subs Hosp L2
[2021-01-12] MEDS: Acetaminophen 325 MG Tablet 650 MG PO (21:08)
[2021-01-13] VITALS (31 sets, daily range): BP systolic 116–161; BP diastolic 60–103; PULSE 74–93; RESP 14–30; TEMP 36.2–36.8; O2SAT 87–97
[2021-01-13 04:45] LABS: Absolute Lymphocyte Count 1.99 X10^3/uL (0.83-4.51); Basophil# 0.01 X10^3/uL; Basophil% 0.1 % (0-1); Hematocrit 47.2 % (40-54); Hemoglobin 16.1 g/dL (13.0-16.5); Lymphocyte # 1.99 X10^3/ul (0.83-4.51); Lymphocyte % 22.5 % (19-41); Mean Corp Hgb Conc 34.1 g/dL (32-36); Mean Corpuscular Volume 90.8 fL (80-94); Monocyte# 0.83 X10^3/uL; Monocyte% 9.4 % (0-10); NRBC Flagged by Analyzer 0 % (0-5); Neutrophil # 5.97 X10^3/uL (2.7-7.7); Neutrophil % 67.3 % (47-70); POSITIVE MORPHOLOGY YES; Platelet Count 233 K/mm3 (150-450); RBC Distribution Width CV 13.6 % (11.6-14.6); RBC Distribution Width SD 45.8 fl (35.1-43.9); White Blood Count 8.9 K/mm3 (4.4-11.0)
[2021-01-13 04:49] LABS: Differential Indicated SCAN CRITERIA MET
[2021-01-13 05:03] LABS: ALB/GLOB Ratio 0.6 RATIO (0.9-2.4); AST(SGOT) 95 U/L (15-37); Alanine Aminotransfer ALT/SGPT 100 U/L (16-61); Albumin, Serum 2.8 g/dL (3.2-5.0); Alkaline Phosphatase 99 U/L (45-117); Anion Gap 13 (5-15); BUN 49 mg/dL (7-18); BUN/Creat Ratio 22.2 RATIO (10-20); Calcium,Total 8.5 mg/dL (8.5-10.1); Chloride 101 mmol/L (98-107); Creatinine, Serum 2.21 mg/dL (0.70-1.30); EST Glomerular Filtration Rate 32 mL/min (>60); Est Glom Filt Rate - Afr Amer 39 mL/min (>60); Estimated Creatinine Clearance 37.55 ml/min; Globulin 4.5 g/dL (2.2-4.2); Glucose 124 mg/dL (74-106); Potassium 3.2 mmol/L (3.5-5.1); Protein, Total 7.3 g/dL (6.4-8.2); Sodium Level 139 mmol/L (136-145)
--- NOTE | 2021-01-13 09:00 | PN.CC_ITS ---
Assessment & Plan Assessment/Plan (1) Pneumonia due to COVID-19 virus: PLAN: RECOMMENDATIONS: 1. Continue BiPAP therapy and wean FiO2 for saturations greater than 90%. Attempt Airvo if possible 2. Continue remdesivir to complete 5-day treatment course. Continue to monitor liver and renal function. 3. Continue Decadron to complete 10 days of therapy. 4. Continue baricitinib per ID recommendations. 5. Continue to hold Lasix, given interval development of CASSANDRA. 6. Increase Lovenox dosing to twice daily. 7. Awake prone positioning was encouraged. 8. Patient should remain n.p.o., while requiring continuous PAP support. IMPRESSIONS: 1. Acute hypoxemic respiratory failure secondary to COVID-19 pneumonia Continue supportive measures including noninvasive positive pressure ventilatory support and wean FiO2 as tolerated for saturations greater than 90%. The patient has been initiated on appropriate medical therapy including remdesivir, Decadron, Lovenox and baricitinib. Continue to monitor liver and renal function. Recommend holding diuretics for now given interval development of CASSANDRA. Continue Lovenox at current dosing. Encourage supportive measures such as incentive spirometer, Acapella and prone positioning to help with oxygenation. Patient appears to be precontemplative. 2. Acute kidney injury Likely prerenal in etiology. Lasix was discontinued today. Continue to monitor urine output for now. No current indication for renal replacement therapy. Subjective Subjective Patient did okay overnight. No acute issues were reported. Nursing has reported patient is not overly compliant with incentive spirometer. Objective Data Objective Data Vital Signs: Vital Signs Temp Pulse Resp BP Pulse Ox 36.6 C 83 24 H 143/76 H 90 01/12/21 20:00 01/13/21 07:00 01/13/21 07:00 01/13/21 07:00 01/13/21 07:41 Oxygen Flow Rate (L/min) 60 Oxygen Delivery Method Airvo Weight: 119.311 kg Body Mass Index (BMI) 78.4 Intake & Output: Intake and Output for Last 24 Hours 01/11/21 01/12/21 01/13/21 23:59 23:59 23:59 Intake Total 650 / 650 558 / 558 Output Total 300 / 300 480 / 480 200 / 200 Balance 350 / 350 78 / 78 -200 / -200 Lab / Micro Data Result Diagrams: 01/13/21 04:00 01/13/21 04:00 Labs: Laboratory Results - last 24 hr 01/12/21 04:58: C-React Prot Ext Range 71.40 H 01/13/21 04:00: WBC 8.9, RBC 5.20, Hgb 16.1, Hct 47.2, MCV 90.8, MCH 31.0, MCHC 34.1, RDW Std Deviation 45.8 H, RDW Coeff of Anusha 13.6, Plt Count 233, MPV 11.0, Immature Gran % (Auto) 0.700, Neut % (Auto) 67.3, Lymph % (Auto) 22.5, [place] % (Auto) 9.4, Eos % (Auto) 0.0, Baso % (Auto) 0.1, Absolute Neuts (auto) 6.0, Absolute Lymphs (auto) 1.99, Nucleated RBC % 0 01/13/21 04:00: Sodium 139, Potassium 3.2 L, Chloride 101, Carbon Dioxide 25.0, Anion Gap 13, BUN 49 H, Creatinine 2.21 H, Estim Creat Clear Calc 37.55, Est GFR (MDRD) Af Amer 39 L, Est GFR (MDRD) Non-Af 32 L, BUN/Creatinine Ratio 22.2 H, Glucose 124 H, Calcium 8.5, Total Bilirubin 0.90, AST 95 H, ALT 100 H, Alkaline Phosphatase 99, Total Protein 7.3, Albumin 2.8 L, Globulin 4.5 H, Albumin/Globulin Ratio 0.6 L Micro: Microbiology 01/11/21 08:35 Blood Culture (Wb) - Left Hand Blood Culture - Preliminary No growth in 48 hours. 01/11/21 08:20 Blood Culture (Wb) - Anticubital Left Blood Culture - Preliminary No growth in 48 hours. 01/11/21 08:30 Nasal Secretion SARS-CoV-2 Antigen (Rapid) - Final SARS-CoV-2 (COVID 19) Physical Exam Const alert General Appearance: cooperative, comfortable and on BiPAP Nutritional Appearance: obese HEENT normocephalic, head/scalp atraumatic and moist oral mucous membranes Eyes PERRL, EOMs intact bilaterally and conjunctivae normal Neck supple General: trachea midline Chest inspection of chest normal Resp no use of accessory muscles Effort and Inspection: able to speak in complete sentences Auscultation: diminished lung sounds; Negative for rales, rhonchi or wheezes Cardio regular rate and regular rhythm GI normal to inspection, nondistended, normoactive bowel sounds Extremity no clubbing, cyanosis or edema Skin no rashes or lesions noted Neuro CN's II-XII intact bilaterally, moves all extremities and no focal motor deficits Psych cooperative and affect normal Charges/Coding Visit Charges Inpatient E&M: 06682 Subs Hosp L3
[2021-01-13] MEDS: Enoxaparin 40 MG/0.4 ML Syringe SC ×2 (11:32→20:44)
[2021-01-13] MEDS: Potassium Chloride Oral Soln 20 MEQ/15 ML UDC 40 MEQ PO (11:33)
[2021-01-13] MEDS: dexAMETHasone 4 MG/ML Vial 6 MG IV (11:33)
[2021-01-13] MEDS: 0.9% Saline Lock 10 ML Syringe IV (11:33)
[2021-01-13] MEDS: Paroxetine 20 MG Tablet PO (11:33)
[2021-01-13] MEDS: Tamsulosin HCl 0.4 MG Capsule PO ×2 (11:33→20:44)
--- NOTE | 2021-01-13 12:00 | CASEMGMT ---
RN CM Face to Face with patient for initial transition planning/care coordination assessment. RN CM introduced self and role at [facility]. Patient sitting in chair, alert and oriented. Patient willing to participate in assessment and is able to answer all questions appropriately. Care providers, pharmacy, and demographics verified. Patient wishes to discharge home, will monitor for need for home oxygen and HHC. Patient states he has no further needs or concerns at this time. CM to follow for discharge planning needs that may arise. PCP: Lisa Specialists: none Preferred Pharmacy: [facility] Insurance: none Prescription Benefit: none Living Will/HPOA: yes, Alejandrina Horne LNOK: , son Living Arrangements: Patient lives with and son in a single story home with no steps. Patient states he is independent at home. Transportation: self/family DME/HHC: Patient denies current DME or previous HHC. Patient has no preferences for DME. Patient states covid testing was completed at [facility] drive thru testing. Disposition Plan: Patient to discharge home with family support and follow-up plans in place. Will monitor for HHC and home oxygen. Rebecca PECK, RN, CM
--- NOTE | 2021-01-13 12:46 | PN.HOSP_ITS ---
Subjective Subjective Doing well, no new issues overnight. We'll continue to encourage pulmonary toileting especially with incentive spirometer Objective Data Objective Data Vital Signs: Vital Signs Temp Pulse Resp BP Pulse Ox 97.9 F 74 24 H 143/76 H 90 01/12/21 20:00 01/13/21 08:00 01/13/21 07:00 01/13/21 07:00 01/13/21 07:41 Oxygen Flow Rate (L/min) 60 Oxygen Delivery Method Airvo Weight: 263 lb 0.579 oz Body Mass Index (BMI) 78.4 Intake & Output: Intake and Output for Last 24 Hours 01/12/21 01/13/21 01/14/21 03:59 03:59 03:59 Intake Total 650 / 650 558 / 558 Output Total 300 / 300 680 / 680 Balance 350 / 350 -122 / -122 Lab / Micro Data Result Diagrams: 01/14/21 04:40 01/14/21 04:40 Labs: Laboratory Results - last 24 hr 01/12/21 04:58: C-React Prot Ext Range 71.40 H 01/13/21 04:00: WBC 8.9, RBC 5.20, Hgb 16.1, Hct 47.2, MCV 90.8, MCH 31.0, MCHC 34.1, RDW Std Deviation 45.8 H, RDW Coeff of Anusha 13.6, Plt Count 233, MPV 11.0, Immature Gran % (Auto) 0.700, Neut % (Auto) 67.3, Lymph % (Auto) 22.5, [place] % (Auto) 9.4, Eos % (Auto) 0.0, Baso % (Auto) 0.1, Absolute Neuts (auto) 6.0, Absolute Lymphs (auto) 1.99, Nucleated RBC % 0 01/13/21 04:00: Sodium 139, Potassium 3.2 L, Chloride 101, Carbon Dioxide 25.0, Anion Gap 13, BUN 49 H, Creatinine 2.21 H, Estim Creat Clear Calc 37.55, Est GFR (MDRD) Af Amer 39 L, Est GFR (MDRD) Non-Af 32 L, BUN/Creatinine Ratio 22.2 H, Glucose 124 H, Calcium 8.5, Total Bilirubin 0.90, AST 95 H, ALT 100 H, Alkaline Phosphatase 99, Total Protein 7.3, Albumin 2.8 L, Globulin 4.5 H, Albumin/Globulin Ratio 0.6 L Micro: Microbiology 01/11/21 08:35 Blood Culture (Wb) - Left Hand Blood Culture - Preliminary No growth in 48 hours. 01/11/21 08:20 Blood Culture (Wb) - Anticubital Left Blood Culture - P reliminary No growth in 48 hours. 01/11/21 08:30 Nasal Secretion SARS-CoV-2 Antigen (Rapid) - Final SARS-CoV-2 (COVID 19) Physical Exam Const alert, oriented x3 and no apparent distress General Appearance: cooperative HEENT normocephalic and moist oral mucous membranes Eyes PERRL, EOMs intact bilaterally and conjunctivae normal Neck supple and no JVD Resp normal respiratory effort, no retractions and no use of accessory muscles Auscultation: diminished lung sounds; Negative for crackles, rales, rhonchi or wheezes Cardio regular rate, regular rhythm, S1 normal heart sound, S2 normal heart sound and no murmurs GI soft to palpation, non-tender and non-distended; Negative for hepatosplenomegaly Extremity no clubbing, cyanosis or edema Skin no rashes or lesions noted Neuro no focal motor deficits and no sensory deficits noted Psych affect normal Appearance: appropriate Assessment & Plan Assessment/Plan (1) Pneumonia due to COVID-19 virus: (2) Acute respiratory failure with hypoxia: PLAN: 1. Acute hypoxic respiratory failure secondary to COVID-19 pneumonia/CASSANDRA -Continue with remdesivir and Decadron as well as baricitinib per pulmonology -Currently on BiPAP and he does want to be intubated if necessary -Creatinine is climbing to 2.21 today, will discontinue his Lasix as well as ramipril 2. HTN -Continue to hold ramipril, hydrochlorothiazide, and Lasix secondary to kidney function -Continue to monitor blood pressures 3. Anxiety/depression -Stable -Continue with Paxil DVT: Lovenox Charges/Coding Visit Charges Inpatient E&M: 89496 Subs Hosp L2
[2021-01-13 14:17] LABS: Pathologist Review Reviewed
--- NOTE | 2021-01-13 15:14 | PCM.CONS.GEN ---
Assessment & Plan Assessment/Plan (1) Pneumonia due to COVID-19 virus: PLAN: Sx started around 01/01, but he reports could be as early at 12/28/10. and son also sick. Unvaccinated. Recommend 20 days of isolation from 01/01. Recommend vaccine once out of iso. On dex/remdesivir/baricitnib. With new CASSANDRA, will decrease dose of baricitinib and stop remdesivir. Will follow, thank you (2) Acute respiratory failure with hypoxia: (3) CASSANDRA (acute kidney injury): HPI Consult Data Date of Consult: 01/13/21 HPI Narrative HPI Narrative: HERIBERTO LOMELI, is a 65 M who presented 01/11 with sx starting 01/01 (but could be as early as the ), c/o fever, chills, headache, sore throat, change in taste/smell, diarrhea, fatigue. and son also sick with covid, improving. Not vaccinated. Came to ED, admitted on dex and remdesivir, started baricitinib. Feeling better, on airvo. Full ROS performed and neg except as noted above. COUNTS INCLUDE 234 BEDS AT THE [facility] Medical History Hypertension Home Medications hydrochlorothiazide 12.5 mg PO DAILY 11/28/15 [History Last Taken Unknown] oxycodone-acetaminophen 1 - 2 tab PO Q4H PRN PRN #12 tab 11/28/15 [Rx Last Taken Unknown] paroxetine HCl 20 mg PO QHS 11/28/15 [History Last Taken Unknown] ramipril [Altace] 10 mg PO DAILY 11/28/15 [History Last Taken Unknown] tamsulosin 0.4 mg PO DAILY 14 Days capsule 11/28/15 [Rx Last Taken Unknown] Allergy/AdvReac Type Severity Reaction Status Date / Time No Known Allergies Allergy Verified 11/28/15 20:22 Family History unable to obtain Surgical History no surgical history Social History Smoking Status: Current some day smoker tobacco type: cigars Physical Exam Const alert, oriented x3 and no apparent distress General Appearance: cooperative Exam Limitations: no limitations HEENT normocephalic and head/scalp atraumatic Eyes PERRL and EOMs intact bilaterally Neck supple and No nodes Resp Auscultation: diminished lung sounds Cardio regular rate and regular rhythm GI normal to inspection, nondistended, normoactive bowel sounds Extremity no clubbing, cyanosis or edema Skin no rashes or lesions noted Neuro CN's II-XII intact bilaterally Lab / Micro Data Result Diagrams: 01/13/21 04:00 01/13/21 04:00 Labs: Laboratory Results - last 24 hr 01/12/21 04:58: Diff Path Review Reviewed 01/13/21 04:00: WBC 8.9, RBC 5.20, Hgb 16.1, Hct 47.2, MCV 90.8, MCH 31.0, MCHC 34.1, RDW Std Deviation 45.8 H, RDW Coeff of Anusha 13.6, Plt Count 233, MPV 11.0, Immature Gran % (Auto) 0.700, Neut % (Auto) 67.3, Lymph % (Auto) 22.5, [place] % (Auto) 9.4, Eos % (Auto) 0.0, Baso % (Auto) 0.1, Absolute Neuts (auto) 6.0, Absolute Lymphs (auto) 1.99, Nucleated RBC % 0 01/13/21 04:00: Sodium 139, Potassium 3.2 L, Chloride 101, Carbon Dioxide 25.0, Anion Gap 13, BUN 49 H, Creatinine 2.21 H, Estim Creat Clear Calc 37.55, Est GFR (MDRD) Af Amer 39 L, Est GFR (MDRD) Non-Af 32 L, BUN/Creatinine Ratio 22.2 H, Glucose 124 H, Calcium 8.5, Total Bilirubin 0.90, AST 95 H, ALT 100 H, Alkaline Phosphatase 99, Total Protein 7.3, Albumin 2.8 L, Globulin 4.5 H, Albumin/Globulin Ratio 0.6 L Micro: Microbiology 01/11/21 08:35 Blood Culture (Wb) - Left Hand Blood Culture - Preliminary No growth in 48 hours. 01/11/21 08:20 Blood Culture (Wb) - Anticubital Left Blood Culture - Preliminary No growth in 48 hours.
[2021-01-14] VITALS (37 sets, daily range): BP systolic 114–165; BP diastolic 81–121; PULSE 68–94; RESP 14–29; TEMP 36.3–37; O2SAT 87–98
[2021-01-14 06:12] LABS: ALB/GLOB Ratio 0.6 RATIO (0.9-2.4); AST(SGOT) 81 U/L (15-37); Alanine Aminotransfer ALT/SGPT 96 U/L (16-61); Albumin, Serum 2.4 g/dL (3.2-5.0); Alkaline Phosphatase 93 U/L (45-117); Anion Gap 8 (5-15); BUN 38 mg/dL (7-18); BUN/Creat Ratio 29.5 RATIO (10-20); Calcium,Total 8.4 mg/dL (8.5-10.1); Chloride 103 mmol/L (98-107); Creatinine, Serum 1.29 mg/dL (0.70-1.30); EST Glomerular Filtration Rate 60 mL/min (>60); Est Glom Filt Rate - Afr Amer 73 mL/min (>60); Estimated Creatinine Clearance 64.33 ml/min; Globulin 4.2 g/dL (2.2-4.2); Glucose 124 mg/dL (74-106); Potassium 3.4 mmol/L (3.5-5.1); Protein, Total 6.6 g/dL (6.4-8.2); Sodium Level 140 mmol/L (136-145)
[2021-01-14 06:23] LABS: Absolute Neutrophil Count 3.2 X10^3/uL (2.0-7.7); Basophil# 0.01 X10^3/uL; Basophil% 0.2 % (0-1); Hematocrit 43.1 % (40-54); Hemoglobin 14.9 g/dL (13.0-16.5); Lymphocyte % 19.8 % (19-41); Mean Corp Hgb Conc 34.6 g/dL (32-36); Mean Corpuscular Hgb 31.6 pg (27.0-32.0); Mean Corpuscular Volume 91.3 fL (80-94); Mean Platelet Vol. 10.7 fl (6.2-12.0); Monocyte% 15.8 % (0-10); NRBC Flagged by Analyzer 0 % (0-5); Neutrophil # 3.21 X10^3/uL (2.7-7.7); Neutrophil % 63.6 % (47-70); POSITIVE MORPHOLOGY YES; Platelet Count 216 K/mm3 (150-450); RBC Distribution Width CV 13.5 % (11.6-14.6); RBC Distribution Width SD 45.4 fl (35.1-43.9); Red Blood Count 4.72 M/mm3 (4.6-6.2); White Blood Count 5.1 K/mm3 (4.4-11.0)
[2021-01-14 06:36] LABS: Differential Indicated SCAN CRITERIA MET
[2021-01-14] MEDS: Potassium Chloride 10mEq/100mL 10 MEQ/100 ML IV.SOLN. 100 MEQ IV BOLUS ×4 (06:57→11:41)
--- NOTE | 2021-01-14 07:25 | PN.CC_ITS ---
Assessment & Plan Assessment/Plan (1) Pneumonia due to COVID-19 virus: PLAN: RECOMMENDATIONS: 1. Continue BiPAP therapy and wean FiO2 for saturations greater than 90%. Attempt Airvo if possible to facilitate nutrition 2. Completed Remdesivir. Continue to monitor liver and renal function given baricitinib. 3. Continue Decadron to complete 10 days of therapy. 4. Continue baricitinib per ID recommendations. 5. Continue to hold Lasix, given interval development of CASSANDRA. 6. Continue Lovenox dosing to twice daily. 7. Awake prone positioning was encouraged. 8. Patient should remain n.p.o., while requiring continuous PAP support. IMPRESSIONS: 1. Acute hypoxemic respiratory failure secondary to COVID-19 pneumonia Continue supportive measures including noninvasive positive pressure ventilatory support and wean FiO2 as tolerated for saturations greater than 90%. The patient has been initiated on appropriate medical therapy including remdesivir, Decadron, Lovenox and baricitinib. Continue to monitor liver and re nal function. Recommend holding diuretics for now given interval development of CASSANDRA. Likely challenge with Lasix tomorrow if patient continues to improve. Continue Lovenox at current dosing. Encourage supportive measures such as incentive spirometer, Acapella and prone positioning to help with oxygenation. Patient appears to be precontemplative. 2. Acute kidney injury Likely prerenal in etiology. Lasix was discontinued 2 days ago with improving renal function. Continue to monitor urine output for now. No current indication for renal replacement therapy. Subjective Subjective Patient did okay overnight. Patient did have desaturations associated with sleep. Patient subjectively feels unchanged compared to previous. Still requiring BiPAP at 80% to maintain saturations. Patient did have difficulties with prone positioning. Objective Data Objective Data Vital Signs: Vital Signs Temp Pulse Resp BP Pulse Ox 36.9 C 73 15 117/95 H 91 01/14/21 04:00 01/14/21 07:00 01/14/21 07:00 01/14/21 07:00 01/14/21 07:00 Oxygen Flow Rate (L/min) 60 Oxygen Delivery Method Bi-pap Weight: 119.311 kg Body Mass Index (BMI) 78.4 Intake & Output: Intake and Output for Last 24 Hours 01/12/21 01/13/21 01/14/21 23:59 23:59 23:59 Intake Total 558 / 558 700 / 700 Output Total 480 / 480 1225 / 1525 600 / 600 Balance 78 / 78 -525 / -825 -600 / -600 Lab / Micro Data Result Diagrams: 01/14/21 04:40 01/14/21 04:40 Labs: Laboratory Results - last 24 hr 01/12/21 04:58: Diff Path Review Reviewed 01/14/21 04:40: WBC 5.1, RBC 4.72, Hgb 14.9, Hct 43.1, MCV 91.3, MCH 31.6, MCHC 34.6, RDW Std Deviation 45.4 H, RDW Coeff of Anusha 13.5, Plt Count 216, MPV 10.7, Immature Gran % (Auto) 0.600, Neut % (Auto) 63.6, Lymph % (Auto) 19.8, [place] % (Auto) 15.8 H, Eos % (Auto) 0.0, Baso % (Auto) 0.2, Absolute Neuts (auto) 3.2, Absolute Lymphs (auto) 1.00, Nucleated RBC % 0 01/14/21 04:40: Sodium 140, Potassium 3.4 L, Chloride 103, Carbon Dioxide 29.0, Anion Gap 8, BUN 38 H, Creatinine 1.29, Estim Creat Clear Calc 64.33, Est GFR (MDRD) Af Amer 73, Est GFR (MDRD) Non-Af 60, BUN/Creatinine Ratio 29.5 H, Glucose 124 H, Calcium 8.4 L, Total Bilirubin 0.80, AST 81 H, ALT 96 H, Alkaline Phosphatase 93, Total Protein 6.6, Albumin 2.4 L, Globulin 4.2, Albumin/Globulin Ratio 0.6 L Micro: Microbiology 01/11/21 08:35 Blood Culture (Wb) - Left Hand Blood Culture - Preliminary No growth in 48 hours. 01/11/21 08:20 Blood Culture (Wb) - Anticubital Left Blood Culture - Preliminary No growth in 48 hours. 01/11/21 08:30 Nasal Secretion SARS-CoV-2 Antigen (Rapid) - Final SARS-CoV-2 (COVID 19) Physical Exam Const alert General Appearance: cooperative, comfortable and on BiPAP Nutritional Appearance: obese HEENT normocephalic, head/scalp atraumatic and moist oral mucous membranes Eyes PERRL, EOMs intact bilaterally and conjunctivae normal Neck supple General: trachea midline Chest inspection of chest normal Resp no use of accessory muscles Effort and Inspection: able to speak in complete sentences Auscultation: diminished lung sounds; Negative for rales, rhonchi or wheezes Cardio regular rate and regular rhythm GI normal to inspection, nondistended, normoactive bowel sounds Extremity no clubbing, cyanosis or edema Skin no rashes or lesions noted Neuro CN's II-XII intact bilaterally, moves all extremities and no focal motor deficits Psych cooperative and affect normal Charges/Coding Visit Charges Inpatient E&M: 29790 Subs Hosp L3
[2021-01-14] MEDS: Paroxetine 20 MG Tablet PO (09:03)
[2021-01-14] MEDS: Enoxaparin 40 MG/0.4 ML Syringe SC ×2 (09:03→19:28)
[2021-01-14] MEDS: Tamsulosin HCl 0.4 MG Capsule PO ×2 (09:03→19:28)
[2021-01-14] MEDS: dexAMETHasone 4 MG/ML Vial 6 MG IV (09:06)
--- NOTE | 2021-01-14 10:00 | PCM.PN.HOSP ---
Subjective Subjective Feels about the same as he did yesterday, no new issues overnight. Objective Data Objective Data Vital Signs: Vital Signs Temp Pulse Resp BP Pulse Ox 97.3 F L 76 14 162/95 H 98 01/14/21 08:00 01/14/21 08:00 01/14/21 08:00 01/14/21 08:00 01/14/21 08:00 Oxygen Flow Rate (L/min) 60 Oxygen Delivery Method Airvo Weight: 263 lb 0.579 oz Body Mass Index (BMI) 78.4 Intake & Output: Intake and Output for Last 24 Hours 01/13/21 01/14/21 01/15/21 03:59 03:59 03:59 Intake Total 558 / 558 700 / 700 100 / 100 Output Total 680 / 680 1325 / 1325 300 / 300 Balance -122 / -122 -625 / -625 -200 / -200 Lab / Micro Data Result Diagrams: 01/14/21 04:40 01/14/21 04:40 Labs: Laboratory Results - last 24 hr 01/12/21 04:58: Diff Path Review Reviewed 01/14/21 04:40: WBC 5.1, RBC 4.72, Hgb 14.9, Hct 43.1, MCV 91.3, MCH 31.6, MCHC 34.6, RDW Std Deviation 45.4 H, RDW Coeff of Anusha 13.5, Plt Count 216, MPV 10.7, Immature Gran % (Auto) 0.600, Neut % (Auto) 63.6, Lymph % (Auto) 19.8, [place] % (Auto) 15.8 H, Eos % (Auto) 0.0, Baso % (Auto) 0.2, Absolute Neuts (auto) 3.2, Absolute Lymphs (auto) 1.00, Nucleated RBC % 0 01/14/21 04:40: Sodium 140, Potassium 3.4 L, Chloride 103, Carbon Dioxide 29.0, Anion Gap 8, BUN 38 H, Creatinine 1.29, Estim Creat Clear Calc 64.33, Est GFR (MDRD) Af Amer 73, Est GFR (MDRD) Non-Af 60, BUN/Creatinine Ratio 29.5 H, Glucose 124 H, Calcium 8.4 L, Total Bilirubin 0.80, AST 81 H, ALT 96 H, Alkaline Phosphatase 93, Total Protein 6.6, Albumin 2.4 L, Globulin 4.2, Albumin/Globulin Ratio 0.6 L Micro: Microbiology 01/11/21 08:35 Blood Culture (Wb) - Left Hand Blood Culture - Preliminary No growth in 48 hours. 01/11/21 08:20 Blood Culture (Wb) - Anticubital Left Blood Culture - Preliminary No growth in 48 hours. 01/11/21 08:30 Nasal Secretion SARS-CoV-2 Antigen (Rapid) - Final SARS-CoV-2 (COVID 19) Physical Exam Const alert, oriented x3 and no apparent distress General Appearance: cooperative HEENT normocephalic and moist oral mucous membranes Eyes PERRL, EOMs intact bilaterally and conjunctivae normal Neck supple and no JVD Resp normal respiratory effort, no retractions and no use of accessory muscles Auscultation: diminished lung sounds; Negative for crackles, rales, rhonchi or wheezes Cardio regular rate, regular rhythm, S1 normal heart sound, S2 normal heart sound and no murmurs GI soft to palpation, non-tender and non-distended; Negative for hepatosplenomegaly Extremity no clubbing, cyanosis or edema Skin no rashes or lesions noted Neuro no focal motor deficits and no sensory deficits noted Psych affect normal Appearance: appropriate Assessment & Plan Assessment/Plan (1) Pneumonia due to COVID-19 virus: (2) Acute respiratory failure with hypoxia: PLAN: 1. Acute hypoxic respiratory failure secondary to COVID-19 pneumonia/CASSANDRA -Continue with remdesivir and Decadron as well as baricitinib per pulmonology -Currently on BiPAP and he does want to be intubated if necessary -Creatinine is improved to 1.29 today, will be able to hopefully reinitiate Lasix tomorrow 2. HTN -Creatinine has improved, may need to consider restarting blood pressure medications if his creatinine remained stable in the morning -Systolic blood pressure this morning is 162 3. Anxiety/depression -Stable -Continue with Paxil DVT: Lovenox Charges/Coding Visit Charges Inpatient E&M: 42766 Subs Hosp L2
[2021-01-14] MEDS: 0.9% Saline Lock 10 ML Syringe IV (19:28)
[2021-01-14] MEDS: Acetaminophen 325 MG Tablet 650 MG PO (19:28)
--- NOTE | 2021-01-14 21:14 | NURSING ---
pt asst back to bed. Pt refuse wash up or bruush teeth
[2021-01-15] VITALS (37 sets, daily range): BP systolic 93–171; BP diastolic 68–100; PULSE 63–99; RESP 14–30; TEMP 32.2–37.2; O2SAT 87–98
[2021-01-15 04:06] LABS: Absolute Lymphocyte Count 0.74 X10^3/uL (0.83-4.51); Absolute Neutrophil Count 5.2 X10^3/uL (2.0-7.7); Basophil# 0.01 X10^3/uL; Basophil% 0.1 % (0-1); Hematocrit 43.5 % (40-54); Hemoglobin 14.8 g/dL (13.0-16.5); Lymphocyte # 0.74 X10^3/ul (0.83-4.51); Mean Corpuscular Hgb 31.3 pg (27.0-32.0); Mean Platelet Vol. 10.1 fl (6.2-12.0); Monocyte# 0.71 X10^3/uL; Monocyte% 10.6 % (0-10); NRBC Flagged by Analyzer 0 % (0-5); Neutrophil % 77.6 % (47-70); Platelet Count 228 K/mm3 (150-450); RBC Distribution Width CV 13.2 % (11.6-14.6); RBC Distribution Width SD 45.1 fl (35.1-43.9); Red Blood Count 4.73 M/mm3 (4.6-6.2); White Blood Count 6.7 K/mm3 (4.4-11.0)
[2021-01-15 04:26] LABS: ALB/GLOB Ratio 0.6 RATIO (0.9-2.4); AST(SGOT) 77 U/L (15-37); Alanine Aminotransfer ALT/SGPT 98 U/L (16-61); Albumin, Serum 2.3 g/dL (3.2-5.0); Alkaline Phosphatase 90 U/L (45-117); Anion Gap 8 (5-15); BUN 34 mg/dL (7-18); BUN/Creat Ratio 31.8 RATIO (10-20); Calcium,Total 8.4 mg/dL (8.5-10.1); Chloride 105 mmol/L (98-107); Creatinine, Serum 1.07 mg/dL (0.70-1.30); EST Glomerular Filtration Rate 74 mL/min (>60); Est Glom Filt Rate - Afr Amer 90 mL/min (>60); Estimated Creatinine Clearance 77.56 ml/min; Globulin 4.1 g/dL (2.2-4.2); Glucose 118 mg/dL (74-106); Potassium 3.8 mmol/L (3.5-5.1); Protein, Total 6.4 g/dL (6.4-8.2); Sodium Level 141 mmol/L (136-145)
--- NOTE | 2021-01-15 06:38 | PCM.PN.INT ---
Assessment & Plan Assessment/Plan (1) Pneumonia due to COVID-19 virus: PLAN: RECOMMENDATIONS: 1. Continue BiPAP therapy and wean FiO2 for saturations greater than 90%. Attempt Airvo if possible to facilitate nutrition 2. Completed Remdesivir. Continue to monitor liver and renal function given baricitinib. 3. Continue Decadron to complete 10 days of therapy. 4. Continue baricitinib per ID recommendations. 5. We will challenge with diuretic therapy 6. Continue Lovenox dosing to twice daily. 7. Awake prone positioning was encouraged. 8. Patient should remain n.p.o., while requiring continuous PAP support. IMPRESSIONS: 1. Acute hypoxemic respiratory failure secondary to COVID-19 pneumonia Continue supportive measures including noninvasive positive pressure ventilatory support and wean FiO2 as tolerated for saturations greater than 90%. The patient has been initiated on appropriate medical therapy including remdesivir, Decadron, Lovenox and baricitinib. Continue to monitor liver and renal function. Lasix challenge today. Continue Lovenox at current dosing. Encourage supportive measures such as incentive spirometer, Acapella and prone positioning to help with oxygenation. Patient appears to be precontemplative. 2. Acute kidney injury Likely prerenal in etiology. Renal function back to normal. We will challenge with Lasix more gently. Continue to monitor urine output for now. No current indication for renal replacement therapy. Subjective Subjective Patient did okay overnight from a hemodynamic standpoint. Patient has been very resistant to prone positioning. Patient was able to tolerate Airvo during the day on maximal settings. Patient overall feels subjectively unchanged compared to previous. Objective Data Objective Data Vital Signs: Vital Signs Temp Pulse Resp BP Pulse Ox 36.9 C 79 20 H 171/86 H 93 01/15/21 04:00 01/15/21 06:00 01/15/21 06:00 01/15/21 06:00 01/15/21 06:00 Oxygen Flow Rate (L/min) 60 Oxygen Delivery Method Bi-pap Weight: 119.748 kg Body Mass Index (BMI) 78.4 Intake & Output: Intake and Output for Last 24 Hours 01/13/21 01/14/21 01/15/21 23:59 23:59 23:59 Intake Total 700 / 700 400 / 400 Output Total 1225 / 1525 975 / 975 650 / 650 Balance -525 / -825 -575 / -575 -650 / -650 Lab / Micro Data Result Diagrams: 01/15/21 03:50 01/15/21 03:50 Labs: Laboratory Results - last 24 hr 01/15/21 03:50: WBC 6.7, RBC 4.73, Hgb 14.8, Hct 43.5, MCV 92.0, MCH 31.3, MCHC 34.0, RDW Std Deviation 45.1 H, RDW Coeff of Anusha 13.2, Plt Count 228, MPV 10.1, Immature Gran % (Auto) 0.700, Neut % (Auto) 77.6 H, Lymph % (Auto) 11.0 L, [place] % (Auto) 10.6 H, Eos % (Auto) 0.0, Baso % (Auto) 0.1, Absolute Neuts (auto) 5.2, Absolute Lymphs (auto) 0.74 L, Nucleated RBC % 0 01/15/21 03:50: Sodium 141, Potassium 3.8, Chloride 105, Carbon Dioxide 28.0, Anion Gap 8, BUN 34 H, Creatinine 1.07, Estim Creat Clear Calc 77.56, Est GFR (MDRD) Af Amer 90, Est GFR (MDRD) Non-Af 74, BUN/Creatinine Ratio 31.8 H, Glucose 118 H, Calcium 8.4 L, Total Bilirubin 0.80, AST 77 H, ALT 98 H, Alkaline Phosphatase 90, Total Protein 6.4, Albumin 2.3 L, Globulin 4.1, Albumin/Globulin Ratio 0.6 L Micro: Microbiology 01/11/21 08:35 Blood Culture (Wb) - Left Hand Blood Culture - Preliminary No growth in 48 hours. 01/11/21 08:20 Blood Culture (Wb) - Anticubital Left Blood Culture - Preliminary No growth in 48 hours. 01/11/21 08:30 Nasal Secretion SARS-CoV-2 Antigen (Rapid) - Final SARS-CoV-2 (COVID 19) Physical Exam Const alert General Appearance: cooperative, comfortable and on BiPAP Nutritional Appearance: obese HEENT normocephalic, head/scalp atraumatic and moist oral mucous membranes Eyes PERRL, EOMs intact bilaterally and conjunctivae normal Neck supple General: trachea midline Chest inspection of chest normal Chest: symmetrical chest wall rise; Negative for crepitus Resp no use of accessory muscles Effort and Inspection: able to speak in complete sentences Auscultation: diminished lung sounds; Negative for rales, rhonchi or wheezes Cardio regular rate and regular rhythm GI normal to inspection, nondistended, normoactive bowel sounds Extremity no clubbing, cyanosis or edema Skin no rashes or lesions noted Neuro CN's II-XII intact bilaterally, moves all extremities and no focal motor deficits Psych cooperative and affect normal Charges/Coding Visit Charges Inpatient E&M: 56095 Subs Hosp L3
[2021-01-15] MEDS: 0.9% Saline Lock 10 ML Syringe IV ×2 (08:29→17:00)
[2021-01-15] MEDS: Potassium Chloride Oral Tablet 20 MEQ 40 MEQ PO (08:30)
[2021-01-15] MEDS: Enoxaparin 40 MG/0.4 ML Syringe SC ×2 (08:30→20:11)
[2021-01-15] MEDS: Tamsulosin HCl 0.4 MG Capsule PO ×2 (08:31→20:11)
[2021-01-15] MEDS: Furosemide 40 MG Tablet PO ×2 (08:31→17:00)
[2021-01-15] MEDS: dexAMETHasone 4 MG/ML Vial 6 MG IV (08:32)
[2021-01-15] MEDS: Paroxetine 20 MG Tablet PO ×2 (08:32→12:56)
--- NOTE | 2021-01-15 11:52 | PCM.PN.HOSP ---
Subjective Subjective No issues overnight, he feels unchanged from previous. Objective Data Objective Data Vital Signs: Vital Signs Temp Pulse Resp BP Pulse Ox 89.9 F L 87 23 H 128/76 H 94 01/15/21 08:00 01/15/21 11:44 01/15/21 11:44 01/15/21 11:00 01/15/21 11:44 Oxygen Flow Rate (L/min) 60 Oxygen Delivery Method Airvo Weight: 264 lb Body Mass Index (BMI) 78.4 Intake & Output: Intake and Output for Last 24 Hours 01/14/21 01/15/21 01/16/21 03:59 03:59 03:59 Intake Total 700 / 700 400 / 400 Output Total 1325 / 1325 1125 / 1125 200 / 200 Balance -625 / -625 -725 / -725 -200 / -200 Lab / Micro Data Result Diagrams: 01/15/21 03:50 01/15/21 03:50 Labs: Laboratory Results - last 24 hr 01/15/21 03:50: WBC 6.7, RBC 4.73, Hgb 14.8, Hct 43.5, MCV 92.0, MCH 31.3, MCHC 34.0, RDW Std Deviation 45.1 H, RDW Coeff of Anusha 13.2, Plt Count 228, MPV 10.1, Immature Gran % (Auto) 0.700, Neut % (Auto) 77.6 H, Lymph % (Auto) 11.0 L, [place] % (Auto) 10.6 H, Eos % (Auto) 0.0, Baso % (Auto) 0.1, Absolute Neuts (auto) 5.2, Absolute Lymphs (auto) 0.74 L, Nucleated RBC % 0 01/15/21 03:50: Sodium 141, Potassium 3.8, Chloride 105, Carbon Dioxide 28.0, Anion Gap 8, BUN 34 H, Creatinine 1.07, Estim Creat Clear Calc 77.56, Est GFR (MDRD) Af Amer 90, Est GFR (MDRD) Non-Af 74, BUN/Creatinine Ratio 31.8 H, Glucose 118 H, Calcium 8.4 L, Total Bilirubin 0.80, AST 77 H, ALT 98 H, Alkaline Phosphatase 90, Total Protein 6.4, Albumin 2.3 L, Globulin 4.1, Albumin/Globulin Ratio 0.6 L Micro: Microbiology 01/11/21 08:35 Blood Culture (Wb) - Left Hand Blood Culture - Preliminary No growth in 48 hours. 01/11/21 08:20 Blood Culture (Wb) - Anticubital Left Blood Culture - Preliminary No growth in 48 hours. 01/11/21 08:30 Nasal Secretion SARS-CoV-2 Antigen (Rapid) - Final SARS-CoV-2 (COVID 19) Physical Exam Const alert, oriented x3 and no apparent distress General Appearance: cooperative HEENT normocephalic and moist oral mucous membranes Eyes PERRL, EOMs intact bilaterally and conjunctivae normal Neck supple and no JVD General: trachea midline Resp normal respiratory effort, no retractions and no use of accessory muscles Auscultation: diminished lung sounds; Negative for crackles, rales, rhonchi or wheezes Cardio regular rate, regular rhythm, S1 normal heart sound, S2 normal heart sound and no murmurs GI soft to palpation, non-tender and non-distended; Negative for hepatosplenomegaly Extremity no clubbing, cyanosis or edema Skin no rashes or lesions noted Neuro no focal motor deficits and no sensory deficits noted Psych affect normal Appearance: appropriate Assessment & Plan Assessment/Plan (1) Pneumonia due to COVID-19 virus: (2) Acute respiratory failure with hypoxia: PLAN: 1. Acute hypoxic respiratory failure secondary to COVID-19 pneumonia/CASSANDRA -Continue with remdesivir and Decadron as well as baricitinib per pulmonology -Currently on BiPAP and he does want to be intubated if necessary -CASSANDRA has resolved, continue to monitor 2. HTN -Continue with Lasix twice daily given his resolution of his CASSANDRA 3. Anxiety/depression -Stable -Continue with Paxil DVT: Lovenox Charges/Coding Visit Charges Inpatient E&M: 31882 Subs Hosp L2
[2021-01-15] MEDS: Acetaminophen 325 MG Tablet 650 MG PO ×2 (16:57→20:11)
[2021-01-16] VITALS (41 sets, daily range): BP systolic 107–157; BP diastolic 29–115; PULSE 62–115; RESP 14–36; TEMP 36.6–37.2; O2SAT 74–100
[2021-01-16 04:03] LABS: Absolute Lymphocyte Count 0.73 X10^3/uL (0.83-4.51); Absolute Neutrophil Count 8.4 X10^3/uL (2.0-7.7); Basophil# 0.01 X10^3/uL; Basophil% 0.1 % (0-1); Hematocrit 44.3 % (40-54); Lymphocyte # 0.73 X10^3/ul (0.83-4.51); Lymphocyte % 7.4 % (19-41); Mean Corp Hgb Conc 33.9 g/dL (32-36); Mean Corpuscular Hgb 31.1 pg (27.0-32.0); Mean Corpuscular Volume 91.7 fL (80-94); Mean Platelet Vol. 10.1 fl (6.2-12.0); Monocyte# 0.67 X10^3/uL; Monocyte% 6.8 % (0-10); NRBC Flagged by Analyzer 0 % (0-5); Neutrophil # 8.36 X10^3/uL (2.7-7.7); Platelet Count 278 K/mm3 (150-450); RBC Distribution Width CV 13.1 % (11.6-14.6); RBC Distribution Width SD 44.6 fl (35.1-43.9); Red Blood Count 4.83 M/mm3 (4.6-6.2); White Blood Count 9.8 K/mm3 (4.4-11.0)
[2021-01-16 04:24] LABS: ALB/GLOB Ratio 0.6 RATIO (0.9-2.4); AST(SGOT) 64 U/L (15-37); Alanine Aminotransfer ALT/SGPT 96 U/L (16-61); Albumin, Serum 2.4 g/dL (3.2-5.0); Alkaline Phosphatase 88 U/L (45-117); Anion Gap 5 (5-15); BUN 30 mg/dL (7-18); BUN/Creat Ratio 24.8 RATIO (10-20); Calcium,Total 8.5 mg/dL (8.5-10.1); Chloride 105 mmol/L (98-107); Creatinine, Serum 1.21 mg/dL (0.70-1.30); EST Glomerular Filtration Rate 64 mL/min (>60); Est Glom Filt Rate - Afr Amer 78 mL/min (>60); Estimated Creatinine Clearance 68.59 ml/min; Globulin 4.1 g/dL (2.2-4.2); Glucose 107 mg/dL (74-106); Potassium 3.9 mmol/L (3.5-5.1); Protein, Total 6.5 g/dL (6.4-8.2); Sodium Level 140 mmol/L (136-145)
--- NOTE | 2021-01-16 06:20 | PN.CC_ITS ---
Assessment & Plan Assessment/Plan (1) Pneumonia due to COVID-19 virus: PLAN: RECOMMENDATIONS: 1. Continue BiPAP therapy and wean FiO2 for saturations greater than 90%. Attempt Airvo if possible to facilitate nutrition 2. Completed Remdesivir. Continue to monitor liver and renal function given baricitinib. 3. Continue Decadron to complete 10 days of therapy. 4. Continue baricitinib per ID recommendations. 5. Hold on diuretic challenge. Initiate hypertensive medications. 6. Continue Lovenox dosing to twice daily. 7. Awake prone positioning was encouraged. 8. Patient should remain n.p.o., while requiring continuous PAP support. IMPRESSIONS: 1. Acute hypoxemic respiratory failure secondary to COVID-19 pneumonia Continue supportive measures including noninvasive positive pressure ventilatory support and wean FiO2 as tolerated for saturations greater than 90%. The patient has been initiated on appropriate medical therapy including remdesivir, Decadron, Lovenox and baricitinib. Continue to monitor liver and renal function. Hold Lasix challenge today. Continue Lovenox at current dosing. Encourage supportive measures such as incentive spirometer, Acapella and prone positioning to help with oxygenation. Patient appears to be precontemplative. 2. Acute kidney injury Likely prerenal in etiology. Renal function back to normal. We will challenge with Lasix more gently. Continue to monitor urine output for now. No current indication for renal replacement therapy. 3. Hypertension Patient with significant elevation in blood pressure. Will initiate Lopressor and hydrochlorothiazide. Avoiding baseline MANN inhibitor as this increases the risk for worsening renal function and may limit the ability to diurese. Subjective Subjective Patient did okay overnight. Patient continues to refuse to lie in the prone position. Patient overall feels subjectively unchanged compared to previous. Oxygenation has slightly improved on BiPAP therapy. Objective Data Objective Data Vital Signs: Vital Signs Temp Pulse Resp BP Pulse Ox 36.6 C 99 28 H 157/105 H 94 01/16/21 04:00 01/16/21 06:00 01/16/21 06:00 01/16/21 06:00 01/16/21 06:00 Oxygen Flow Rate (L/min) 60 Oxygen Delivery Method Bi-pap Weight: 119.4 kg Body Mass Index (BMI) 78.4 Intake & Output: Intake and Output for Last 24 Hours 01/14/21 01/15/21 01/16/21 23:59 23:59 23:59 Intake Total 400 / 400 640 / 640 Output Total 975 / 975 1400 / 1400 300 / 300 Balance -575 / -575 -760 / -760 -300 / -300 Lab / Micro Data Result Diagrams: 01/16/21 03:55 01/16/21 03:55 Labs: Laboratory Results - last 24 hr 01/16/21 03:55: WBC 9.8, RBC 4.83, Hgb 15.0, Hct 44.3, MCV 91.7, MCH 31.1, MCHC 33.9, RDW Std Deviation 44.6 H, RDW Coeff of Anusha 13.1, Plt Count 278, MPV 10.1, Immature Gran % (Auto) 0.700, Neut % (Auto) 85.0 H, Lymph % (Auto) 7.4 L, [place] % (Auto) 6.8, Eos % (Auto) 0.0, Baso % (Auto) 0.1, Absolute Neuts (auto) 8.4 H, Absolute Lymphs (auto) 0.73 L, Nucleated RBC % 0 01/16/21 03:55: Sodium 140, Potassium 3.9, Chloride 105, Carbon Dioxide 30.0, Anion Gap 5, BUN 30 H, Creatinine 1.21, Estim Creat Clear Calc 68.59, Est GFR (MDRD) Af Amer 78, Est GFR (MDRD) Non-Af 64, BUN/Creatinine Ratio 24.8 H, Glucose 107 H, Calcium 8.5, Total Bilirubin 1.00, AST 64 H, ALT 96 H, Alkaline Phosphatase 88, Total Protein 6.5, Albumin 2.4 L, Globulin 4.1, Albumin/Globulin Ratio 0.6 L Micro: Microbiology 01/11/21 08:35 Blood Culture (Wb) - Left Hand Blood Culture - Preliminary No growth in 48 hours. 01/11/21 08:20 Blood Culture (Wb) - Anticubital Left Blood Culture - Preliminary No growth in 48 hours. 01/11/21 08:30 Nasal Secretion SARS-CoV-2 Antigen (Rapid) - Final SARS-CoV-2 (COVID 19) Physical Exam Const alert General Appearance: cooperative, comfortable and on BiPAP Nutritional Appearance: obese HEENT normocephalic, head/scalp atraumatic and moist oral mucous membranes Eyes PERRL, EOMs intact bilaterally and conjunctivae normal Neck supple General: trachea midline Chest inspection of chest normal Chest: symmetrical chest wall rise; Negative for crepitus Resp no use of accessory muscles Effort and Inspection: able to speak in complete sentences Auscultation: diminished lung sounds; Negative for rales, rhonchi or wheezes Cardio regular rate and regular rhythm GI normal to inspection, nondistended, normoactive bowel sounds Extremity no clubbing, cyanosis or edema Skin no rashes or lesions noted Neuro CN's II-XII intact bilaterally, moves all extremities and no focal motor deficits Psych cooperative and affect normal Charges/Coding Visit Charges Inpatient E&M: 58927 Subs Hosp L3
[2021-01-16] MEDS: Tamsulosin HCl 0.4 MG Capsule PO ×2 (08:30→20:03)
[2021-01-16] MEDS: Enoxaparin 40 MG/0.4 ML Syringe SC ×2 (08:33→20:04)
[2021-01-16] MEDS: Paroxetine 20 MG Tablet 40 MG PO (08:34)
[2021-01-16] MEDS: dexAMETHasone 4 MG/ML Vial 6 MG IV (08:35)
[2021-01-16] MEDS: Metoprolol Tartrate 25 MG Tablet PO ×2 (08:35→20:04)
[2021-01-16] MEDS: 0.9% Saline Lock 10 ML Syringe IV (08:36)
[2021-01-16] MEDS: Acetaminophen 325 MG Tablet 650 MG PO ×3 (08:36→20:03)
--- NOTE | 2021-01-16 10:11 | CASEMGMT ---
Social Work Pt is currently listed as self pay. Phone call to pt Kelley and support provided. Pt's was also ill, but now is feeling better and out of quarantine. Kelley is appreciative of updates from nursing and states she was able to visit pt yesterday. Kelley confirms pt does not have insurance and SW explained pt is currently under the [employer] Covid assistance program and PFS phone number provided for further questions. Kelley states pt has not applied for Medicaid and is uncertain if he would qualify. YENI explained the likely need for home oxygen and cost of this. PT feels they will be able to pay for home oxygen at time of discharge. She also states that they have been able to afford pt prescriptions, but if discharging medication is too expensive they may have difficulty. Packet of information including Medicaid application, prescription assistance, [facility] and [employer] given to nurse to take into pt room. Pt aware that info has been given to pt. No further concerns voiced at this time. SW will remain available for support. LORY Woods
--- NOTE | 2021-01-16 10:16 | PN.HOSP_ITS ---
Subjective Subjective No new issues overnight, is doing well. Feels a little better Objective Data Objective Data Vital Signs: Vital Signs Temp Pulse Resp BP Pulse Ox 98.9 F 100 24 H 119/75 92 01/16/21 08:00 01/16/21 09:29 01/16/21 09:29 01/16/21 09:00 01/16/21 09:29 Oxygen Flow Rate (L/min) 60 Oxygen Delivery Method Airvo Weight: 263 lb 3.711 oz Body Mass Index (BMI) 78.4 Intake & Output: Intake and Output for Last 24 Hours 01/15/21 01/16/21 01/17/21 03:59 03:59 03:59 Intake Total 400 / 400 640 / 640 220 / 220 Output Total 1125 / 1125 1250 / 1250 200 / 200 Balance -725 / -725 -610 / -610 Lab / Micro Data Result Diagrams: 01/16/21 03:55 01/16/21 03:55 Labs: Laboratory Results - last 24 hr 01/16/21 03:55: WBC 9.8, RBC 4.83, Hgb 15.0, Hct 44.3, MCV 91.7, MCH 31.1, MCHC 33.9, RDW Std Deviation 44.6 H, RDW Coeff of Anusha 13.1, Plt Count 278, MPV 10.1, Immature Gran % (Auto) 0.700, Neut % (Auto) 85.0 H, Lymph % (Auto) 7.4 L, [place] % (Auto) 6.8, Eos % (Auto) 0.0, Baso % (Auto) 0.1, Absolute Neuts (auto) 8.4 H, Absolute Lymphs (auto) 0.73 L, Nucleated RBC % 0 01/16/21 03:55: Sodium 140, Potassium 3.9, Chloride 105, Carbon Dioxide 30.0, Anion Gap 5, BUN 30 H, Creatinine 1.21, Estim Creat Clear Calc 68.59, Est GFR (MDRD) Af Amer 78, Est GFR (MDRD) Non-Af 64, BUN/Creatinine Ratio 24.8 H, Glucose 107 H, Calcium 8.5, Total Bilirubin 1.00, AST 64 H, ALT 96 H, Alkaline Phosphatase 88, Total Protein 6.5, Albumin 2.4 L, Globulin 4.1, Albumin/Globulin Ratio 0.6 L Micro: Microbiology 01/11/21 08:35 Blood Culture (Wb) - Left Hand Blood Culture - Final No growth in 5 days. 01/11/21 08:20 Blood Culture (Wb) - Anticubital Left Blood Culture - Final No growth in 5 days. 01/11/21 08:30 Nasal Secretion SARS-CoV-2 Antigen (Rapid) - Final SARS-CoV-2 (COVID 19) Physical Exam Const alert, oriented x3 and no apparent distress General Appearance: cooperative HEENT normocephalic and moist oral mucous membranes Eyes PERRL, EOMs intact bilaterally and conjunctivae normal Neck supple and no JVD General: trachea midline Resp normal respiratory effort, no retractions and no use of accessory muscles Auscultation: diminished lung sounds; Negative for crackles, rales, rhonchi or wheezes Cardio regular rate, regular rhythm, S1 normal heart sound, S2 normal heart sound and no murmurs GI soft to palpation, non-tender and non-distended; Negative for hepatosplenomegaly Extremity normal to inspection and no clubbing, cyanosis or edema Skin no rashes or lesions noted Neuro no focal motor deficits and no sensory deficits noted Psych affect normal Appearance: appropriate Assessment & Plan Assessment/Plan (1) Pneumonia due to COVID-19 virus: (2) Acute respiratory failure with hypoxia: PLAN: 1. Acute hypoxic respiratory failure secondary to COVID-19 pneumonia/CASSANDRA -Continue with Decadron as well as baricitinib per pulmonology, completed remdesivir -On BiPAP overnight, transition to Odalys when able -CASSANDRA has resolved, continue to monitor 2. HTN -We will discontinue the Lasix and restart his home blood pressure medications 3. Anxiety/depression -Stable -Continue with Paxil DVT: Lovenox Charges/Coding Visit Charges Inpatient E&M: 94059 Subs Hosp L2
--- NOTE | 2021-01-16 10:30 | PCM.PN.ID ---
Physical Exam Narrative Feeling a little better, no fever, no n/v/d. Const alert General Appearance: cooperative Resp Auscultation: diminished lung sounds Cardio regular rate and regular rhythm GI normal to inspection, nondistended, normoactive bowel sounds Extremity no clubbing, cyanosis or edema Skin no rashes or lesions noted ID ID: Route of nutrition/ use of supplements: [] Nutritional Intake: [] IV Site: [] [place] Catheter: [] Assessment & Plan Assessment/Plan (1) Pneumonia due to COVID-19 virus: PLAN: Sx started around 01/01, but he reports could be as early at 12/28/10. and son also sick. Unvaccinated. Recommend 20 days of isolation from 01/01. Recommend vaccine once out of iso. On dex/baricitnib. Stopped remdesivir due to CASSANDRA. Will increase baricitinib dose due to improving GFR. Will follow (2) Acute respiratory failure with hypoxia: (3) CASSANDRA (acute kidney injury):
[2021-01-16] MEDS: hydroCHLOROthiazide 12.5mg 12.5 MG PO (11:13)
[2021-01-17] VITALS (45 sets, daily range): BP systolic 69–188; BP diastolic 56–103; PULSE 63–100; RESP 12–37; TEMP 36.4–36.7; O2SAT 80–99
--- NOTE | 2021-01-17 04:57 | NURSING ---
po drop to 82 %. mask readjusted came up to 88%. resp aware. adjustments to bipap setting.
[2021-01-17 05:02] LABS: Absolute Neutrophil Count 10.2 X10^3/uL (2.0-7.7); Basophil# 0.01 X10^3/uL; Basophil% 0.1 % (0-1); Hematocrit 45.1 % (40-54); Hemoglobin 15.2 g/dL (13.0-16.5); Mean Corp Hgb Conc 33.7 g/dL (32-36); Mean Corpuscular Hgb 31.1 pg (27.0-32.0); Mean Corpuscular Volume 92.4 fL (80-94); Mean Platelet Vol. 10.5 fl (6.2-12.0); Monocyte# 0.66 X10^3/uL; Monocyte% 5.7 % (0-10); NRBC Flagged by Analyzer 0 % (0-5); Neutrophil # 10.17 X10^3/uL (2.7-7.7); Neutrophil % 87.4 % (47-70); Platelet Count 369 K/mm3 (150-450); RBC Distribution Width CV 13.2 % (11.6-14.6); RBC Distribution Width SD 45.1 fl (35.1-43.9); Red Blood Count 4.88 M/mm3 (4.6-6.2); White Blood Count 11.6 K/mm3 (4.4-11.0)
[2021-01-17 05:15] LABS: ALB/GLOB Ratio 0.5 RATIO (0.9-2.4); AST(SGOT) 41 U/L (15-37); Alanine Aminotransfer ALT/SGPT 85 U/L (16-61); Albumin, Serum 2.3 g/dL (3.2-5.0); Alkaline Phosphatase 83 U/L (45-117); Anion Gap 4 (5-15); BUN 28 mg/dL (7-18); BUN/Creat Ratio 25.5 RATIO (10-20); Calcium,Total 8.8 mg/dL (8.5-10.1); Chloride 103 mmol/L (98-107); EST Glomerular Filtration Rate 72 mL/min (>60); Est Glom Filt Rate - Afr Amer 87 mL/min (>60); Estimated Creatinine Clearance 75.44 ml/min; Globulin 4.5 g/dL (2.2-4.2); Glucose 104 mg/dL (74-106); Potassium 4.5 mmol/L (3.5-5.1); Protein, Total 6.8 g/dL (6.4-8.2); Sodium Level 139 mmol/L (136-145)
[2021-01-17] MEDS: 0.9% Saline Lock 10 ML Syringe IV ×3 (05:22→06:14)
[2021-01-17] MEDS: Haloperidol Lactate 5 MG/ML Vial 3 MG IV (05:28)
[2021-01-17] MEDS: Furosemide 40 MG/4 ML Vial IV (06:09)
[2021-01-17] MEDS: Labetalol (Prefilled) 20 MG/4 ML 10 MG IV (06:13)
[2021-01-17] MEDS: Etomidate 20 MG/10 ML Vial IV (08:23)
[2021-01-17] MEDS: Propofol 10MG/Ml 1,000 MG/100 ML Bottle 28.5 MG CONT INF ×3 (08:24→13:30)
[2021-01-17] MEDS: Midazolam 2 MG/2 ML Syringe IV (08:28)
--- NOTE | 2021-01-17 08:29 | RAD_ITS ---
STUDY: X-RAY CHEST REASON FOR EXAM: Male, 65 years old. ETT placement AND OG PLACEMENT TECHNIQUE: Single AP portable view of the chest. COMPARISON: Comparison is made with prior study dated 01/11/2021. An endotracheal tube is in situ. The tip is at 5.3 cm proximal to the panda. Nasogastric tube is seen with the tip in the body of the stomach. EKG electrodes are seen. FINDINGS: Persistent bilateral pulmonary infiltrates worse in the left lung. Persistent right lower lobe infiltrate. There has been mild improved aeration of the right lung. There is no demonstrated pleural abnormality. Normal size heart. Normal mediastinum and ajay. Normal visualized pulmonary arteries. Normal visualized aortic arch and descending thoracic aorta. There are diffuse degenerative changes of the visualized thoracic spine. Normal visualized ribs, clavicles, and shoulders. There is no demonstrated abnormality of the visualized soft tissue structures of the upper abdomen. RAD/Chest 1 View (Portable) IMPRESSION: Endotracheal tube and nasogastric tube are in good position. Persistent bilateral pulmonary infiltrates although there has been improvement as compared to prior study. Electronically Signed: Ayad Brown MD at 9:08 EDT , Service support ,
--- NOTE | 2021-01-17 08:41 | PCM.PN.HOSP ---
Subjective Subjective Intubated and sedated, overnight he appeared to get exhausted, he was placed on BiPAP and needed an FiO2 of 100% to maintain oxygen sats in the 80s Objective Data Objective Data Vital Signs: Vital Signs Temp Pulse Resp BP Pulse Ox 98 F 96 32 H 135/78 H 83 01/17/21 00:00 01/17/21 08:00 01/17/21 08:00 01/17/21 08:00 01/17/21 08:00 Oxygen Flow Rate (L/min) 60 Oxygen Delivery Method Bi-pap Weight: 261 lb 11.019 oz Body Mass Index (BMI) 78.4 Intake & Output: Intake and Output for Last 24 Hours 01/16/21 01/17/21 01/18/21 03:59 03:59 03:59 Intake Total 640 / 640 760 / 760 Output Total 1250 / 1250 450 / 450 1450 / 1450 Balance -610 / -610 310 / 310 -1450 / -1450 Lab / Micro Data Result Diagrams: 01/17/21 03:20 01/17/21 03:20 Labs: Laboratory Results - last 24 hr 01/17/21 03:20: WBC 11.6 H, RBC 4.88, Hgb 15.2, Hct 45.1, MCV 92.4, MCH 31.1, MCHC 33.7, RDW Std Deviation 45.1 H, RDW Coeff of Anusha 13.2, Plt Count 369, MPV 10.5, Immature Gran % (Auto) 0.800, Neut % (Auto) 87.4 H, Lymph % (Auto) 6.0 L, [place] % (Auto) 5.7, Eos % (Auto) 0.0, Baso % (Auto) 0.1, Absolute Neuts (auto) 10.2 H, Absolute Lymphs (auto) 0.70 L, Nucleated RBC % 0 01/17/21 03:20: Sodium 139, Potassium 4.5, Chloride 103, Carbon Dioxide 32.0, Anion Gap 4 L, BUN 28 H, Creatinine 1.10, Estim Creat Clear Calc 75.44, Est GFR (MDRD) Af Amer 87, Est GFR (MDRD) Non-Af 72, BUN/Creatinine Ratio 25.5 H, Glucose 104, Calcium 8.8, Total Bilirubin 0.90, AST 41 H, ALT 85 H, Alkaline Phosphatase 83, Total Protein 6.8, Albumin 2.3 L, Globulin 4.5 H, Albumin/Globulin Ratio 0.5 L Micro: Microbiology 01/11/21 08:35 Blood Culture (Wb) - Left Hand Blood Culture - Final No growth in 5 days. 01/11/21 08:20 Blood Culture (Wb) - Anticubital Left Blood Culture - Final No growth in 5 days. 01/11/21 08:30 Nasal Secretion SARS-CoV-2 Antigen (Rapid) - Final SARS-CoV-2 (COVID 19) Physical Exam Const General Appearance: intubated and patient mechanically ventilated HEENT normocephalic and moist oral mucous membranes Eyes PERRL and conjunctivae normal Neck supple and no JVD General: trachea midline Resp normal respiratory effort, no retractions and no use of accessory muscles Auscultation: diminished lung sounds; Negative for crackles, rales, rhonchi or wheezes Cardio regular rate, regular rhythm, S1 normal heart sound, S2 normal heart sound and no murmurs GI soft to palpation and non-distended; Negative for hepatosplenomegaly Extremity no clubbing, cyanosis or edema Skin no rashes or lesions noted Neuro Sensorium / Orientation: sedated on vent Psych Appearance: intubated Assessment & Plan Assessment/Plan (1) Pneumonia due to COVID-19 virus: (2) Acute respiratory failure with hypoxia: PLAN: 1. Acute hypoxic respiratory failure secondary to COVID-19 pneumonia/CASSANDRA -Continue with Decadron as well as baricitinib per pulmonology, completed remdesivir -Intubated 01/17/2021 -CASSANDRA has resolved, continue to monitor -Slightly elevated leukocytosis and necessitating intubation today, will obtain a sputum culture 2. HTN -We will hold Lasix and restart his home blood pressure medications 3. Anxiety/depression -Stable -Continue with Paxil DVT: Lovenox Charges/Coding Visit Charges Inpatient E&M: 18382 Subs Hosp L2
--- NOTE | 2021-01-17 08:54 | PCM.PN.INT ---
Assessment & Plan Assessment/Plan (1) Pneumonia due to COVID-19 virus: PLAN: RECOMMENDATIONS: 1. Titrate PEEP and FiO2 for saturations greater than 90%. 2. Completed Remdesivir. Continue to monitor liver and renal function given baricitinib. 3. Continue Decadron to complete 10 days of therapy. 4. Continue baricitinib per ID recommendations. 5. Hold on diuretic challenge for today 6. Continue Lovenox dosing to twice daily. 7. Okay to initiate tube feeds IMPRESSIONS: 1. Acute hypoxemic respiratory failure secondary to ARDS secondary to COVID-19 pneumonia Continue supportive measures including noninvasive positive pressure ventilatory support and wean FiO2 as tolerated for saturations greater than 90%. The patient has been initiated on appropriate medical therapy including remdesivir, Decadron, Lovenox and baricitinib. Patient progressed and required intubation on 01/17/2021. Will wean FiO2 as tolerated, but currently requiring PEEP of 14. Attempt to improve vent synchrony to see if things will improve. Cannot exclude the need for progression to APRV. 2. Acute kidney injury Likely prerenal in etiology. Renal function back to normal. We will challenge with Lasix more gently. Continue to monitor urine output for now. No current indication for renal replacement therapy. 3. Hypertension Patient with significant elevation in blood pressure. Will initiate Lopressor and hydrochlorothiazide. Avoiding baseline MANN inhibitor as this increases the risk for worsening renal function and may limit the ability to diurese. TIME: 35 minutes critical care time spent addressing patient's hypoxic respiratory failure, acute kidney injury, hypertension, review of all data and collaboration with care team (7 AM to 9 AM) Subjective Subjective Patient with significant agitation overnight. Patient had to be placed on BiPAP, but continued to remove it secondary to the sensation of a dry mouth and dyspnea. Attempted using Haldol and Lasix, but patient persisted in being hypoxic. Patient had to be intubated Objective Data Objective Data Intubation Indication: Respiratory failure/hypoxia Consent was obtained from: Verbal from patient The patient was placed in the appropriate sniffing position. Preoxygenated sedation via BiPAP at 100% FiO2 was provided for a minimum of 3 minutes. The patient had continuous cardiac as well as pulse oximetry monitoring during the procedure. Procedure sedation was provided by the administration of 20 mg of etomidate. [place] scope laryngoscopy was then performed using a number 4 blade, which revealed a grade 3 view. A 8 mm endotracheal tube was visualized advancing between the cords to the level of 26 cm at the lip. The stylette was then removed and discarded. Tube placement was confirmed by fogging in the tube along with equal and bilateral breath sounds. Colorimetric change was visualized on the CO2 meter. The cuff was then inflated and the tube secured using a commercially available device. A good pulse oximetry waveform was seen on the monitor throughout the procedure. A portable chest x-ray has been ordered to confirm appropriate placement. The patient tolerated the procedure well. Patient has had some vent dyssynchrony following intubation requiring an additional 2 mg of Versed in addition to the propofol and fentanyl drips as ordered. Vital Signs: Vital Signs Temp Pulse Resp BP Pulse Ox 36.6 C 96 32 H 135/78 H 83 01/17/21 00:00 01/17/21 08:00 01/17/21 08:00 01/17/21 08:00 01/17/21 08:00 Oxygen Flow Rate (L/min) 60 Oxygen Delivery Method Bi-pap Weight: 118.7 kg Body Mass Index (BMI) 78.4 Intake & Output: Intake and Output for Last 24 Hours 01/15/21 01/16/21 01/17/21 23:59 23:59 23:59 Intake Total 640 / 640 700 / 700 60 / 60 Output Total 1400 / 1400 750 / 750 1450 / 1450 Balance -760 / -760 -50 / -50 -1390 / -1390 Lab / Micro Data Result Diagrams: 01/17/21 03:20 01/17/21 03:20 Labs: Laboratory Results - last 24 hr 01/17/21 03:20: WBC 11.6 H, RBC 4.88, Hgb 15.2, Hct 45.1, MCV 92.4, MCH 31.1, MCHC 33.7, RDW Std Deviation 45.1 H, RDW Coeff of Anusha 13.2, Plt Count 369, MPV 10.5, Immature Gran % (Auto) 0.800, Neut % (Auto) 87.4 H, Lymph % (Auto) 6.0 L, [place] % (Auto) 5.7, Eos % (Auto) 0.0, Baso % (Auto) 0.1, Absolute Neuts (auto) 10.2 H, Absolute Lymphs (auto) 0.70 L, Nucleated RBC % 0 01/17/21 03:20: Sodium 139, Potassium 4.5, Chloride 103, Carbon Dioxide 32.0, Anion Gap 4 L, BUN 28 H, Creatinine 1.10, Estim Creat Clear Calc 75.44, Est GFR (MDRD) Af Amer 87, Est GFR (MDRD) Non-Af 72, BUN/Creatinine Ratio 25.5 H, Glucose 104, Calcium 8.8, Total Bilirubin 0.90, AST 41 H, ALT 85 H, Alkaline Phosphatase 83, Total Protein 6.8, Albumin 2.3 L, Globulin 4.5 H, Albumin/Globulin Ratio 0.5 L Micro: Microbiology 01/11/21 08:35 Blood Culture (Wb) - Left Hand Blood Culture - Final No growth in 5 days. 01/11/21 08:20 Blood Culture (Wb) - Anticubital Left Blood Culture - Final No growth in 5 days. 01/11/21 08:30 Nasal Secretion SARS-CoV-2 Antigen (Rapid) - Final SARS-CoV-2 (COVID 19) Physical Exam Const General Appearance: anxious, uncooperative, intubated and patient mechanically ventilated Nutritional Appearance: obese HEENT normocephalic, head/scalp atraumatic and moist oral mucous membranes Eyes PERRL, EOMs intact bilaterally and conjunctivae normal Neck supple General: trachea midline Chest inspection of chest normal Chest: symmetrical chest wall rise; Negative for crepitus Resp no use of accessory muscles Effort and Inspection: able to speak in complete sentences Auscultation: diminished lung sounds; Negative for rales, rhonchi or wheezes Cardio regular rate and regular rhythm GI normal to inspection, nondistended, normoactive bowel sounds Extremity no clubbing, cyanosis or edema Skin no rashes or lesions noted Neuro CN's II-XII intact bilaterally, moves all extremities and no focal motor deficits Psych Psych Narrative: Intubated and sedated Charges/Coding Procedures Hospitalists Procedures: [id number] Critial Care 1st Hr
[2021-01-17 10:14] LABS: CPK Total, Creatine Kinase 43 U/L (39-308); Triglycerides 95 mg/dL
[2021-01-17] MEDS: dexAMETHasone 4 MG/ML Vial 6 MG IV (10:29)
[2021-01-17] MEDS: Enoxaparin 40 MG/0.4 ML Syringe SC ×2 (10:30→21:52)
[2021-01-17] MEDS: hydroCHLOROthiazide 12.5mg 12.5 MG GT (10:30)
[2021-01-17] MEDS: Chlorhexidine 15 ML PO ×2 (10:31→21:52)
[2021-01-17] MEDS: Acetaminophen 650 MG/20 ML UDC GT ×3 (10:31→21:53)
[2021-01-17] MEDS: Paroxetine 20 MG Tablet 40 MG GT (10:31)
[2021-01-17] MEDS: Senna/Docusate Sodium 1 Tablet 2 TABLET PO ×2 (10:31→21:52)
[2021-01-17] MEDS: Vital AF 1.2 Cal Liquid 1,000 ML 70 ML GT (10:47)
[2021-01-17 13:41] LABS: Base Excess 3 mmol/L (-2 to +2); Bicarbonate 27.9 mmol/L (22-26); Blood Gas Specimen Type ART; FI02 100; PO2 60 mmHG (75-100); RR 12; SITE R Radial; SO2 90 % (95-99); Total Carbon Dioxide 29 mmol/L; pCO2 46.4 mmHg (35-45); pH 7.39 (7.35-7.45)
--- NOTE | 2021-01-17 14:30 | NURSING ---
Pt placed in prone position with assistance of [address] Peguero at bedside. x3 RT present for procedure. Pt tolerated well. SPO2 96%.
--- NOTE | 2021-01-17 14:42 | NURSING ---
Patient proned, ET tube stabilized with foam pillow ET tube bellamy. pt tolerated well, pulse ox 95%.
[2021-01-17] MEDS: Propofol 10MG/Ml 1,000 MG/100 ML Bottle 24.9 MG CONT INF ×2 (17:44→21:45)
[2021-01-17] MEDS: Metoprolol Tartrate 25 MG Tablet GT (21:53)
[2021-01-18] VITALS (38 sets, daily range): BP systolic 79–139; BP diastolic 48–88; PULSE 58–98; RESP 11–37; TEMP 35.9–37.1; O2SAT 89–99
[2021-01-18] MEDS: Propofol 10MG/Ml 1,000 MG/100 ML Bottle 17.8 MG CONT INF ×3 (02:45→23:35)
[2021-01-18] MEDS: Acetaminophen 650 MG/20 ML UDC GT ×4 (04:30→21:42)
[2021-01-18 05:12] LABS: Absolute Lymphocyte Count 0.71 X10^3/uL (0.83-4.51); Absolute Neutrophil Count 12.6 X10^3/uL (2.0-7.7); Basophil# 0.02 X10^3/uL; Basophil% 0.1 % (0-1); Eosinophil# 0.01 X10^3/uL; Eosinophils% 0.1 % (0-5); Hematocrit 45.1 % (40-54); Hemoglobin 15.3 g/dL (13.0-16.5); Lymphocyte # 0.71 X10^3/ul (0.83-4.51); Lymphocyte % 5.1 % (19-41); Mean Corp Hgb Conc 33.9 g/dL (32-36); Mean Corpuscular Hgb 31.9 pg (27.0-32.0); Mean Platelet Vol. 10.2 fl (6.2-12.0); Monocyte# 0.44 X10^3/uL; Monocyte% 3.2 % (0-10); NRBC Flagged by Analyzer 0 % (0-5); Neutrophil # 12.57 X10^3/uL (2.7-7.7); Neutrophil % 90.3 % (47-70); Platelet Count 474 K/mm3 (150-450); RBC Distribution Width CV 13.6 % (11.6-14.6); RBC Distribution Width SD 46.9 fl (35.1-43.9); White Blood Count 13.9 K/mm3 (4.4-11.0)
[2021-01-18 05:51] LABS: Base Excess 1 mmol/L (-2 to +2); Bicarbonate 26.3 mmol/L (22-26); Blood Gas Specimen Type ART; FI02 55; Mode BiLevel; O2 Delivery Device Adult Vent; PO2 64 mmHG (75-100); RR 12; SITE L Radial; SO2 91 % (95-99); Total Carbon Dioxide 28 mmol/L; pCO2 44.6 mmHg (35-45); pH 7.38 (7.35-7.45)
[2021-01-18 06:35] LABS: Anion Gap 9 (5-15); BUN 37 mg/dL (7-18); BUN/Creat Ratio 19.6 RATIO (10-20); Calcium,Total 8.9 mg/dL (8.5-10.1); Chloride 99 mmol/L (98-107); Creatinine, Serum 1.89 mg/dL (0.70-1.30); EST Glomerular Filtration Rate 38 mL/min (>60); Est Glom Filt Rate - Afr Amer 47 mL/min (>60); Estimated Creatinine Clearance 43.91 ml/min; Glucose 104 mg/dL (74-106); Potassium 4.1 mmol/L (3.5-5.1); Sodium Level 138 mmol/L (136-145)
--- NOTE | 2021-01-18 07:13 | PCM.PN.INT ---
Assessment & Plan Assessment/Plan (1) Pneumonia due to COVID-19 virus: PLAN: RECOMMENDATIONS: 1. Titrate P high and FiO2 for saturations greater than 90%. 2. Completed Remdesivir. Continue to monitor liver and renal function given baricitinib. 3. Continue Decadron to complete 10 days of therapy (01/20/2021). 4. Continue baricitinib per ID recommendations (01/24/2021). 5. Hold on diuretic challenge for today 6. Continue Lovenox dosing to twice daily. 7. Will attempt to bolus feeding while in the supine position 8. Continue prone positioning for 16 hours a day as tolerated IMPRESSIONS: 1. Acute hypoxemic respiratory failure secondary to ARDS secondary to COVID-19 pneumonia Continue supportive measures including noninvasive positive pressure ventilatory support and wean FiO2 as tolerated for saturations greater than 90%. The patient has been initiated on appropriate medical therapy including remdesivir, Decadron, Lovenox and baricitinib. Patient has completed Remdesivir. Patient progressed and required intubation on 01/17/2021. Patient responded well to prone positioning. We will continue APRV. ABG shows adequate oxygenation ventilation this morning. 2. Acute kidney injury Likely prerenal in etiology. Renal function back to normal. Hold on Lasix for today. Continue to monitor urine output for now. No current indication for renal replacement therapy. 3. Hypertension Patient with significant elevation in blood pressure. Will continue Lopressor and hydrochlorothiazide. Avoiding baseline MANN inhibitor as this increases the risk for worsening renal function and may limit the ability to diurese. TIME: 40 minutes critical care time spent addressing patient's hypoxic respiratory failure, acute kidney injury, hypertension, review of all data and collaboration with care team (5:30 AM to 6:30 AM) Subjective Subjective Patient did well overnight. Patient was placed in prone positioning for 16 hours and tolerated well. Patient remains on APRV, but FiO2 was able to be weaned to 55%. Patient is currently intubated and sedated. No significant arrhythmias have been noted. Nursing did report significant nasal secretions while in the prone position, so cultures were ordered. Objective Data Objective Data Vital Signs: Vital Signs Temp Pulse Resp BP Pulse Ox 36.6 C 88 19 H 118/85 H 94 01/18/21 03:00 01/18/21 07:00 01/18/21 07:00 01/18/21 07:00 01/18/21 07:00 Oxygen Flow Rate (L/min) 60 Oxygen Delivery Method Mechanical Ventilator Weight: 117.3 kg Body Mass Index (BMI) 78.4 Intake & Output: Intake and Output for Last 24 Hours 01/16/21 01/17/21 01/18/21 23:59 23:59 23:59 Intake Total 700 / 700 661.21 / 670.66 136.16 / 136.16 Output Total 750 / 750 1999 / 1999 275 / 275 Balance -50 / -50 -1338.79 / -1329.34 -138.84 / -138.84 Lab / Micro Data Result Diagrams: 01/18/21 05:00 01/18/21 05:45 Labs: Laboratory Results - last 24 hr 01/17/21 03:20: Total Creatine Kinase 43, Triglycerides 95 01/18/21 05:00: WBC 13.9 H, RBC 4.80, Hgb 15.3, Hct 45.1, MCV 94.0, MCH 31.9, MCHC 33.9, RDW Std Deviation 46.9 H, RDW Coeff of Anusha 13.6, Plt Count 474 H, MPV 10.2, Immature Gran % (Auto) 1.200 H, Neut % (Auto) 90.3 H, Lymph % (Auto) 5.1 L, [place] % (Auto) 3.2, Eos % (Auto) 0.1, Baso % (Auto) 0.1, Absolute Neuts (auto) 12.6 H, Absolute Lymphs (auto) 0.71 L, Nucleated RBC % 0 01/18/21 05:00: Sodium Cancelled, Potassium Cancelled, Chloride Cancelled, Carbon Dioxide Cancelled, Anion Gap Cancelled, BUN Cancelled, Creatinine Cancelled, Estim Creat Clear Calc Cancelled, Est GFR (MDRD) Af Amer Cancelled, Est GFR (MDRD) Non-Af Cancelled, BUN/Creatinine Ratio Cancelled, Glucose Cancelled, Calcium Cancelled 01/18/21 05:45: Sodium 138, Potassium 4.1, Chloride 99, Carbon Dioxide 30.0, Anion Gap 9, BUN 37 H, Creatinine 1.89 H, Estim Creat Clear Calc 43.91, Est GFR (MDRD) Af Amer 47 L, Est GFR (MDRD) Non-Af 38 L, BUN/Creatinine Ratio 19.6, Glucose 104, Calcium 8.9 Micro: Microbiology 01/17/21 08:20 Sputum, Induced/[place] Gram Stain - Final 01/11/21 08:35 Blood Culture (Wb) - Left Hand Blood Culture - Final No growth in 5 days. 01/11/21 08:20 Blood Culture (Wb) - Anticubital Left Blood Culture - Final No growth in 5 days. 01/11/21 08:30 Nasal Secretion SARS-CoV-2 Antigen (Rapid) - Final SARS-CoV-2 (COVID 19) ABG Data ABG results: ABG 01/17/21 01/18/21 13:34 05:46 Specimen Type ART ART Sample Site R Radial L Radial pH 7.39 7.38 Bicarbonate Actual 27.9 H 26.3 H Total CO2 29 28 Base Excess 3 H 1 O2 Saturation 90 L 91 L O2 % 100 55 ABG pCO2 46.4 H 44.6 ABG pO2 60 L 64 L Rohit Test N/A Respiration Rate 12 12 O2 Delivery Device Adult Vent Vent Mode BiLevel Clinical Comments Aprv 28 Radiography Diagnostic Testing: Radiology Impression Chest X-Ray 01/17/21 08:29 IMPRESSION: Endotracheal tube and nasogastric tube are in good position. Persistent bilateral pulmonary infiltrates although there has been improvement as compared to prior study. Electronically Signed: Ayad Brown MD at 9:08 EDT , Service support , Physical Exam Const General Appearance: comfortable, intubated and patient mechanically ventilated Nutritional Appearance: obese HEENT normocephalic, head/scalp atraumatic and moist oral mucous membranes Eyes PERRL, EOMs intact bilaterally and conjunctivae normal Neck supple General: trachea midline Chest inspection of chest normal Chest: symmetrical chest wall rise; Negative for crepitus Resp Auscultation: diminished lung sounds; Negative for rales, rhonchi or wheezes Cardio regular rate and regular rhythm GI normal to inspection, nondistended, normoactive bowel sounds Extremity no clubbing, cyanosis or edema Skin no rashes or lesions noted Neuro CN's II-XII intact bilaterally, moves all extremities and no focal motor deficits Psych Psych Narrative: Intubated and sedated Charges/Coding Procedures Hospitalists Procedures: [id number] [facility] 1st Hr
[2021-01-18] MEDS: Enoxaparin 40 MG/0.4 ML Syringe SC ×2 (10:37→21:47)
[2021-01-18] MEDS: Senna/Docusate Sodium 1 Tablet 2 TABLET GT ×2 (10:37→21:42)
[2021-01-18] MEDS: Tamsulosin HCl 0.4 MG Capsule PO ×2 (10:38→21:42)
[2021-01-18] MEDS: hydroCHLOROthiazide 12.5mg 12.5 MG GT (10:38)
[2021-01-18] MEDS: Paroxetine 20 MG Tablet 40 MG GT (10:39)
[2021-01-18] MEDS: dexAMETHasone 4 MG/ML Vial 6 MG IV (10:39)
[2021-01-18] MEDS: Chlorhexidine 15 ML PO ×2 (10:39→21:41)
[2021-01-18] MEDS: Propofol 10MG/Ml 1,000 MG/100 ML Bottle 14.2 MG CONT INF (12:09)
--- NOTE | 2021-01-18 12:37 | PCM.PN.HOSP ---
Subjective Subjective Intubated and sedated, had improvement with proning and his FiO2 on mechanical ventilation is down to 55% Objective Data Objective Data Vital Signs: Vital Signs Temp Pulse Resp BP Pulse Ox 98.7 F 90 26 H 98/69 92 01/18/21 08:00 01/18/21 10:27 01/18/21 10:27 01/18/21 09:00 01/18/21 10:27 Oxygen Flow Rate (L/min) 60 Oxygen Delivery Method Mechanical Ventilator Weight: 258 lb 9.636 oz Body Mass Index (BMI) 78.4 Intake & Output: Intake and Output for Last 24 Hours 01/17/21 01/18/21 01/19/21 03:59 03:59 03:59 Intake Total 760 / 760 668.42 / 686.77 210.62 / 210.62 Output Total 450 / 450 1999 / 1999 400 / 400 Balance 310 / 310 -1331.58 / -1313.23 -189.38 / -189.38 Lab / Micro Data Result Diagrams: 01/18/21 05:00 01/18/21 05:45 Labs: Laboratory Results - last 24 hr 01/18/21 05:00: WBC 13.9 H, RBC 4.80, Hgb 15.3, Hct 45.1, MCV 94.0, MCH 31.9, MCHC 33.9, RDW Std Deviation 46.9 H, RDW Coeff of Anusha 13.6, Plt Count 474 H, MPV 10.2, Immature Gran % (Auto) 1.200 H, Neut % (Auto) 90.3 H, Lymph % (Auto) 5.1 L, [place] % (Auto) 3.2, Eos % (Auto) 0.1, Baso % (Auto) 0.1, Absolute Neuts (auto) 12.6 H, Absolute Lymphs (auto) 0.71 L, Nucleated RBC % 0 01/18/21 05:00: Sodium Cancelled, Potassium Cancelled, Chloride Cancelled, Carbon Dioxide Cancelled, Anion Gap Cancelled, BUN Cancelled, Creatinine Cancelled, Estim Creat Clear Calc Cancelled, Est GFR (MDRD) Af Amer Cancelled, Est GFR (MDRD) Non-Af Cancelled, BUN/Creatinine Ratio Cancelled, Glucose Cancelled, Calcium Cancelled 01/18/21 05:45: Sodium 138, Potassium 4.1, Chloride 99, Carbon Dioxide 30.0, Anion Gap 9, BUN 37 H, Creatinine 1.89 H, Estim Creat Clear Calc 43.91, Est GFR (MDRD) Af Amer 47 L, Est GFR (MDRD) Non-Af 38 L, BUN/Creatinine Ratio 19.6, Glucose 104, Calcium 8.9 Micro: Microbiology 01/17/21 08:20 Sputum, Induced/Lukens Gram Stain - Final 01/17/21 08:20 Sputum, Induced/Lukens Respiratory Culture - Preliminary Appears to be normal respiratory solange. Further studies to follow. 01/11/21 08:35 Blood Culture (Wb) - Left Hand Blood Culture - Final No growth in 5 days. 01/11/21 08:20 Blood Culture (Wb) - Anticubital Left Blood Culture - Final No growth in 5 days. 01/11/21 08:30 Nasal Secretion SARS-CoV-2 Antigen (Rapid) - Final SARS-CoV-2 (COVID 19) ABG Data ABG results: ABG 01/17/21 01/18/21 13:34 05:46 Specimen Type ART ART Sample Site R Radial L Radial pH 7.39 7.38 Bicarbonate Actual 27.9 H 26.3 H Total CO2 29 28 Base Excess 3 H 1 O2 Saturation 90 L 91 L O2 % 100 55 ABG pCO2 46.4 H 44.6 ABG pO2 60 L 64 L Rohit Test N/A Respiration Rate 12 12 O2 Delivery Device Adult Vent Vent Mode BiLevel Clinical Comments Aprv 28 Physical Exam Const General Appearance: intubated and patient mechanically ventilated HEENT normocephalic and moist oral mucous membranes Eyes PERRL and conjunctivae normal Neck supple and no JVD Resp normal respiratory effort, no retractions and no use of accessory muscles Auscultation: diminished lung sounds; Negative for crackles, rales, rhonchi or wheezes Cardio regular rate, regular rhythm, S1 normal heart sound, S2 normal heart sound and no murmurs GI soft to palpation and non-distended; Negative for hepatosplenomegaly Extremity no clubbing, cyanosis or edema Skin no rashes or lesions noted Neuro no focal motor deficits and no sensory deficits noted Sensorium / Orientation: sedated on vent Psych affect normal Appearance: intubated Assessment & Plan Assessment/Plan (1) Pneumonia due to COVID-19 virus: (2) Acute respiratory failure with hypoxia: PLAN: 1. Acute hypoxic respiratory failure secondary to COVID-19 pneumonia/CASSANDRA -Continue with Decadron as well as baricitinib per pulmonology, completed remdesivir -Intubated 01/17/2021 -Hold his Lasix as he has had significant worsening in his kidney function from yesterday. -Sputum culture appears to be normal solange 2. HTN -We will hold Lasix and restart his home blood pressure medications 3. Anxiety/depression -Stable -Continue with Paxil DVT: Lovenox Charges/Coding Visit Charges Inpatient E&M: 18135 Subs Hosp L2
--- NOTE | 2021-01-18 14:00 | NURSING ---
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 Sats 95%. Foam pillow under patients head, ETT stable. Original Note: patient placed in the prone position
[2021-01-18] MEDS: Propofol 10MG/Ml 1,000 MG/100 ML Bottle 21.4 MG CONT INF (18:08)
[2021-01-18] MEDS: 0.9% Saline Lock 10 ML Syringe IV (21:41)
[2021-01-19] VITALS (44 sets, daily range): BP systolic 98–141; BP diastolic 67–109; PULSE 53–111; RESP 12–28; TEMP 35.8–36.7; O2SAT 90–99
[2021-01-19] MEDS: Propofol 10MG/Ml 1,000 MG/100 ML Bottle 17.8 MG CONT INF ×2 (02:30→07:43)
[2021-01-19] MEDS: Acetaminophen 650 MG/20 ML UDC GT ×4 (04:24→19:58)
[2021-01-19 04:26] LABS: Absolute Lymphocyte Count 0.53 X10^3/uL (0.83-4.51); Absolute Neutrophil Count 8.9 X10^3/uL (2.0-7.7); Basophil# 0.02 X10^3/uL; Basophil% 0.2 % (0-1); Hematocrit 41.7 % (40-54); Hemoglobin 14.5 g/dL (13.0-16.5); Lymphocyte # 0.53 X10^3/ul (0.83-4.51); Lymphocyte % 5.3 % (19-41); Mean Corp Hgb Conc 34.8 g/dL (32-36); Mean Corpuscular Hgb 32.2 pg (27.0-32.0); Mean Corpuscular Volume 92.7 fL (80-94); Mean Platelet Vol. 10.1 fl (6.2-12.0); Monocyte# 0.42 X10^3/uL; Monocyte% 4.2 % (0-10); NRBC Flagged by Analyzer 0 % (0-5); Neutrophil # 8.92 X10^3/uL (2.7-7.7); POSITIVE DIFFERENTIAL YES; Platelet Count 540 K/mm3 (150-450); RBC Distribution Width CV 13.2 % (11.6-14.6); RBC Distribution Width SD 45.1 fl (35.1-43.9)
[2021-01-19 04:29] LABS: Differential Indicated SCAN CRITERIA MET
[2021-01-19 05:08] LABS: ALB/GLOB Ratio 0.4 RATIO (0.9-2.4); AST(SGOT) 50 U/L (15-37); Albumin, Serum 1.7 g/dL (3.2-5.0); Alkaline Phosphatase 73 U/L (45-117); Anion Gap 7 (5-15); BUN 45 mg/dL (7-18); Chloride 100 mmol/L (98-107); Creatinine, Serum 1.61 mg/dL (0.70-1.30); EST Glomerular Filtration Rate 46 mL/min (>60); Est Glom Filt Rate - Afr Amer 56 mL/min (>60); Estimated Creatinine Clearance 51.55 ml/min; Glucose 134 mg/dL (74-106); Potassium 4.5 mmol/L (3.5-5.1); Sodium Level 136 mmol/L (136-145)
[2021-01-19 05:51] LABS: Alanine Aminotransfer ALT/SGPT 65 U/L (16-61)
[2021-01-19 05:52] LABS: Globulin 4.7 g/dL (2.2-4.2); Protein, Total 6.4 g/dL (6.4-8.2)
--- NOTE | 2021-01-19 06:07 | PN.CC_ITS ---
Assessment & Plan Assessment/Plan (1) Pneumonia due to COVID-19 virus: PLAN: RECOMMENDATIONS: 1. Titrate P high and FiO2 for saturations greater than 90%. 2. Continue baricitinib to complete treatment course. 3. Continue Decadron to complete 10-day treatment course. 4. Continue Lovenox twice daily as ordered. 5. Start appropriate GI prophylaxis. 6. Continue tube feeds as tolerated. 7. Okay to place patient back in supine position. IMPRESSIONS: 1. Acute hypoxemic respiratory failure secondary to ARDS due to COVID-19 pneumonia Although noninvasive positive pressure ventilatory support was initially utilized in attempt to stabilize the patient, he continued to decompensate clinically and required intubation on January 17. The patient will be continued on APRV mode of mechanical ventilation with P high and FiO2 weaned as tolerated to maintain saturations at or above 90%. We will plan to continue prone positioning as tolerated 16 hours/day. The patient has already completed a treatment course of remdesivir and will remain on Decadron, Lovenox and baricitinib. 2. Acute kidney injury Likely prerenal in etiology. Continue to hold diuretics for now. Continue to monitor urine output for now. No current indication for renal replacement therapy. 3. Hypertension/obesity Complicates care, management, recovery and prognosis. Resume antihypertensives once extubated. Continue supportive measures including tube feeds as tolerated. TIME: 37 minutes of critical care time, independent of procedures, was spent addressing the patient's acute hypoxemic respiratory failure secondary to COVID- 19 pneumonia, acute kidney injury, hypertension, review of all data and collaboration with care team. ([id number]) Subjective Subjective The patient was seen and examined at the bedside this morning. Events from the last 24 hours have been reviewed. The patient has been in a prone position since 1400 hrs. yesterday. He is currently afebrile and hemodynamically stable. The patient remains on APRV mode of mechanical ventilation with an FiO2 of 50% and P high of 28. He remains sedated on propofol and fentanyl. The patient is currently documented to be overall net -3 L for the hospital admission. The patient remains on Decadron, prophylactic Lovenox and baricitinib. Objective Data Objective Data The patient's most recent lab work, culture data and imaging studies have all been personally reviewed. Rapid coronavirus antigen testing was positive on January 09. Sputum culture is pending. Vital Signs: Vital Signs Temp Pulse Resp BP Pulse Ox 96.5 F L 54 L 12 108/71 97 01/19/21 04:00 01/19/21 06:00 01/19/21 06:00 01/19/21 06:00 01/19/21 06:00 Oxygen Flow Rate (L/min) 65 Oxygen Delivery Method Mechanical Ventilator Weight: 117.3 kg Body Mass Index (BMI) 78.4 Intake & Output: Intake and Output for Last 24 Hours 01/17/21 01/18/21 01/19/21 23:59 23:59 23:59 Intake Total 661.21 / 670.66 742.08 / 759.50 213.92 / 213.92 Output Total 1999 / 1999 800 / 900 300 / 300 Balance -1338.79 / -1329.34 -57.92 / -140.50 -86.08 / -86.08 Lab / Micro Data Attestation: I reviewed the patient's lab results. Result Diagrams: 01/19/21 04:10 01/19/21 04:10 Labs: Laboratory Results - last 24 hr 01/18/21 05:45: Sodium 138, Potassium 4.1, Chloride 99, Carbon Dioxide 30.0, Anion Gap 9, BUN 37 H, Creatinine 1.89 H, Estim Creat Clear Calc 43.91, Est GFR (MDRD) Af Amer 47 L, Est GFR (MDRD) Non-Af 38 L, BUN/Creatinine Ratio 19.6, Glucose 104, Calcium 8.9 01/19/21 04:10: WBC 10.0, RBC 4.50 L, Hgb 14.5, Hct 41.7, MCV 92.7, MCH 32.2 H, MCHC 34.8, RDW Std Deviation 45.1 H, RDW Coeff of Anusha 13.2, Plt Count 540 H, MPV 10.1, Immature Gran % (Auto) 1.300 H, Neut % (Auto) 89.0 H, Lymph % (Auto) 5.3 L , [place] % (Auto) 4.2, Eos % (Auto) 0.0, Baso % (Auto) 0.2, Absolute Neuts (auto) 8.9 H, Absolute Lymphs (auto) 0.53 L, Nucleated RBC % 0 01/19/21 04:10: Sodium 136, Potassium 4.5, Chloride 100, Carbon Dioxide 29.0, Anion Gap 7, BUN 45 H, Creatinine 1.61 H, Estim Creat Clear Calc 51.55, Est GFR (MDRD) Af Amer 56 L, Est GFR (MDRD) Non-Af 46 L, BUN/Creatinine Ratio 28.0 H, Glucose 134 H, Calcium 8.0 L, Total Bilirubin 1.00, AST 50 H, ALT 65 H, Alkaline Phosphatase 73, Total Protein 6.4, Albumin 1.7 L, Globulin 4.7 H, Albumin/Globulin Ratio 0.4 L Micro: Microbiology 01/18/21 06:45 Aspirate - Nose Gram Stain - Final 01/17/21 08:20 Sputum, Induced/Lukens Gram Stain - Final 01/17/21 08:20 Sputum, Induced/Lukens Respiratory Culture - Preliminary Appears to be normal respiratory solange. Further studies to follow. 01/11/21 08:35 Blood Culture (Wb) - Left Hand Blood Culture - Final No growth in 5 days. 01/11/21 08:20 Blood Culture (Wb) - Anticubital Left Blood Culture - Final No growth in 5 days. 01/11/21 08:30 Nasal Secretion SARS-CoV-2 Antigen (Rapid) - Final SARS-CoV-2 (COVID 19) Physical Exam Const no apparent distress Constitutional Narrative: Currently in prone position. General Appearance: intubated and patient mechanically ventilated HEENT normocephalic and head/scalp atraumatic Mouth: endotracheal tube in place and OG tube in place Eyes PERRL Neck supple General: trachea midline Resp Auscultation: diminished lung sounds; Negative for rales, rhonchi or wheezes Cardio regular rate, regular rhythm, S1 normal heart sound and S2 normal heart sound GI normal to inspection, nondistended, normoactive bowel sounds Extremity no clubbing, cyanosis or edema Skin no rashes or lesions noted Neuro Sensorium / Orientation: sedated on vent Charges/Coding Procedures Hospitalists Procedures: 02321 Critial Care 1st Hr
[2021-01-19 06:35] LABS: Anisocytosis RARE; Differential Comment SCANNED; Macrocytosis RARE
--- NOTE | 2021-01-19 09:29 | PN.HOSP_ITS ---
Subjective Subjective Continue with proning as he seems to respond positively. Intubated and sedated Objective Data Objective Data Vital Signs: Vital Signs Temp Pulse Resp BP Pulse Ox 96.8 F L 56 L 12 117/78 95 01/19/21 08:00 01/19/21 09:00 01/19/21 09:00 01/19/21 09:00 01/19/21 09:00 Oxygen Flow Rate (L/min) 65 Oxygen Delivery Method Mechanical Ventilator Weight: 258 lb 9.636 oz Body Mass Index (BMI) 78.4 Intake & Output: Intake and Output for Last 24 Hours 01/18/21 01/19/21 01/20/21 03:59 03:59 03:59 Intake Total 668.42 / 686.77 775.69 / 863.49 213.38 / 213.38 Output Total 1999 / 1999 900 / 1100 200 / 200 Balance -1331.58 / -1313.23 -124.31 / -236.51 13.38 / 13.38 Lab / Micro Data Result Diagrams: 01/19/21 04:10 01/19/21 04:10 Labs: Laboratory Results - last 24 hr 01/19/21 04:10: WBC 10.0, RBC 4.50 L, Hgb 14.5, Hct 41.7, MCV 92.7, MCH 32.2 H, MCHC 34.8, RDW Std Deviation 45.1 H, RDW Coeff of Anusha 13.2, Plt Count 540 H, MPV 10.1, Immature Gran % (Auto) 1.300 H, Neut % (Auto) 89.0 H, Lymph % (Auto) 5.3 L , [place] % (Auto) 4.2, Eos % (Auto) 0.0, Baso % (Auto) 0.2, Absolute Neuts (auto) 8.9 H, Absolute Lymphs (auto) 0.53 L, Nucleated RBC % 0, Differential Comment SCANNED, Anisocytosis RARE, Macrocytosis RARE 01/19/21 04:10: Sodium 136, Potassium 4.5, Chloride 100, Carbon Dioxide 29.0, Anion Gap 7, BUN 45 H, Creatinine 1.61 H, Estim Creat Clear Calc 51.55, Est GFR (MDRD) Af Amer 56 L, Est GFR (MDRD) Non-Af 46 L, BUN/Creatinine Ratio 28.0 H, Glucose 134 H, Calcium 8.0 L, Total Bilirubin 1.00, AST 50 H, ALT 65 H, Alkaline Phosphatase 73, Total Protein 6.4, Albumin 1.7 L, Globulin 4.7 H, Albumin/Globulin Ratio 0.4 L Micro: Microbiology 01/17/21 08:20 Sputum, Induced/Lukens Gram Stain - Final 01/17/21 08:20 Sputum, Induced/Lukens Respiratory Culture - Final Mixed normal respiratory solange. No Streptococcus pneumoniae, beta-hemolytic Streptococcus or Staphylococcus aureus isolated. 01/18/21 06:45 Aspirate - Nose Gram Stain - Final 01/11/21 08:35 Blood Culture (Wb) - Left Hand Blood Culture - Final No growth in 5 days. 01/11/21 08:20 Blood Culture (Wb) - Anticubital Left Blood Culture - Final No growth in 5 days. 01/11/21 08:30 Nasal Secretion SARS-CoV-2 Antigen (Rapid) - Final SARS-CoV-2 (COVID 19) Physical Exam Const General Appearance: intubated and patient mechanically ventilated HEENT normocephalic and moist oral mucous membranes Eyes PERRL and conjunctivae normal Neck supple and no JVD Resp normal respiratory effort, no retractions and no use of accessory muscles Auscultation: diminished lung sounds; Negative for crackles, rales, rhonchi or wheezes Cardio regular rate, regular rhythm, S1 normal heart sound, S2 normal heart sound and no murmurs GI soft to palpation and non-distended; Negative for hepatosplenomegaly Extremity no clubbing, cyanosis or edema Skin no rashes or lesions noted Neuro Sensorium / Orientation: sedated on vent Psych Appearance: intubated Assessment & Plan Assessment/Plan (1) Pneumonia due to COVID-19 virus: (2) Acute respiratory failure with hypoxia: PLAN: 1. Acute hypoxic respiratory failure secondary to COVID-19 pneumonia/CASSANDRA -Continue with Decadron as well as baricitinib per pulmonology, completed remdesivir -Intubated 01/17/2021 -Hold his Lasix as he has had significant worsening in his kidney function, will continue to monitor. -Sputum culture appears to be normal solange 2. HTN -Hold Lasix and ramipril -Continue with hydrochlorothiazide 3. Anxiety/depression -Stable -Continue with Paxil DVT: Lovenox Charges/Coding Visit Charges Inpatient E&M: 85166 Subs Hosp L2
--- NOTE | 2021-01-19 10:45 | NURSING ---
Patient turned to his back, 3 RNs, PELT GRADER and RT present. Patient dropped his o2 saturations to 45%, fi02 turned up to 100% with no improvement. Left sided lung sounds more diminished than right. Patient taken off the vent and bagged. Patient saturations increased with bagging, stabilized at 97%. Equal b/l lung sounds heard. patient placed back on ventilator. Vitals remained stable, lung sounds unchanged. Vent settings adjusted per RT. Dr. Yadav notified.
[2021-01-19] MEDS: Paroxetine 20 MG Tablet 40 MG GT (10:57)
[2021-01-19] MEDS: Senna/Docusate Sodium 1 Tablet 2 TABLET GT ×2 (10:57→19:58)
[2021-01-19] MEDS: dexAMETHasone 4 MG/ML Vial 6 MG IV (10:57)
[2021-01-19] MEDS: Tamsulosin HCl 0.4 MG Capsule PO ×2 (10:57→19:59)
[2021-01-19] MEDS: Enoxaparin 40 MG/0.4 ML Syringe SC ×2 (10:58→19:58)
[2021-01-19] MEDS: CHLORHEXIDINE GLUC 2% CLOTH 1 EACH TOWELETTE TOPICAL (10:58)
[2021-01-19] MEDS: Chlorhexidine 15 ML PO ×2 (10:59→19:58)
[2021-01-19] MEDS: TITRATION PARAMETER CHANGE 1 EACH IV (12:09)
[2021-01-19] MEDS: Propofol 10MG/Ml 1,000 MG/100 ML Bottle 21 MG CONT INF (12:27)
[2021-01-19] MEDS: Propofol 10MG/Ml 1,000 MG/100 ML Bottle 17.5 MG CONT INF ×2 (16:04→18:58)
[2021-01-19] MEDS: 0.9% Saline Lock 10 ML Syringe IV (19:59)
--- NOTE | 2021-01-19 22:43 | RAD_ITS ---
STUDY: X-RAY CHEST REASON FOR EXAM: Male, 65 years old. tube placement TECHNIQUE: Single AP portable view of the chest. COMPARISON: January 17, 2021. FINDINGS: Endotracheal tube tip 2.8 cm above the panda. Enteric tube tip below the left hemidiaphragm off the inferior margin of the study at least in the gastric fundus. Diffuse lung opacities slightly improved at the left lung base as compared to prior study. No effusions. No pneumothorax. Normal size heart. Normal mediastinum and ajay. Normal visualized pulmonary arteries. Normal visualized aortic arch and descending thoracic aorta. Normal visualized thoracic spine. Normal visualized ribs, clavicles, and shoulders. There is no demonstrated abnormality of the visualized soft tissue structures of the upper abdomen. RAD/Chest 1 View (Portable) IMPRESSION: Support tubes in expected locations. Bilateral airspace opacities slightly improved at the left lung base compared to prior study. Electronically Signed: Martínez Juarez MD at 2:07 EDT , Service support ,
--- NOTE | 2021-01-19 23:21 | PCM.PN.BLA ---
Progress Note Intubation Indication: Acute hypoxemic respiratory failure. Patient was originally intubated. Reportedly patient fell and extubated himself. Consent was not obtained since it was an emergent procedure. The patient was placed in supine position. Preoxygenated sedation via Ambu bagging. The patient had continuous cardiac as well as pulse oximetry monitoring during the procedure. Procedure sedation was provided by the administration of propofol and succinylcholine. [place] scope laryngoscopy which revealed a grade 1 view. An 8 mm endotracheal tube was visualized advancing between the cords to the level of 26 cm at the lip. The stylette was then removed and discarded. Tube placement was confirmed by fogging in the tube along with equal and bilateral breath sounds. Colorimetric change was visualized on the CO2 meter. The cuff was then inflated and the tube secured using a commercially available device. A good pulse oximetry waveform was seen on the monitor throughout the procedure. A portable chest x-ray has been ordered to confirm appropriate placement. The patient tolerated the procedure well. Procedures Hospitalists Procedures: 28849 Insert Emergency Airway
[2021-01-19] MEDS: Propofol 10MG/Ml 1,000 MG/100 ML Bottle 35.1 MG CONT INF (23:27)
[2021-01-20] VITALS (37 sets, daily range): BP systolic 97–118; BP diastolic 63–81; PULSE 62–83; RESP 12–16; TEMP 36–37.4; O2SAT 87–98
--- NOTE | 2021-01-20 01:28 | RAD_ITS ---
HISTORY: OG Placement -- Portable FINDINGS: Frontal view of the chest and abdomen demonstrates a orogastric tube in the stomach in satisfactory position. Mild diffuse interstitial thickening with patchy left basilar opacification, not significant changed from prior exam. RAD/Abdomen Single View (Portable) IMPRESSION: OGT projects subdiaphragmatic within the stomach. at 0804 Reported and signed by: Lonnie Alberts MD Electronically Signed: Lonnie Alberts MD at 8:02 EDT Tel , Service support ,
[2021-01-20] MEDS: Propofol 10MG/Ml 1,000 MG/100 ML Bottle 35.1 MG CONT INF (02:18)
--- NOTE | 2021-01-20 02:59 | NURSING ---
01/19/21 @ 2222- Patient noted to be falling out of bed and reaching for ETT. CARCASS TRIMMER called at this time. Nursing found patient with ETT pulled out and started ambu bagging at 2222 once patient was flipped from prone position to supine. Propofol was increased to 40 mcg at [address] Santos who arrived at bedside at this time. Succinylcholine 100 mg IVP push was given at 2233. Successful intubation was obtained at [address] Santos. At this time a size 8 ETT 26 @ lip was placed, positive color change was obtained and bilateral breath sounds heard. A size 18 FR OGT was placed at 2244. XR ordered at this time for confirmation of support tubes. Dr. Yadav notified of event. called to bedside. Will continue to monitor.
[2021-01-20] MEDS: Acetaminophen 650 MG/20 ML UDC GT ×4 (04:36→21:11)
[2021-01-20] MEDS: Propofol 10MG/Ml 1,000 MG/100 ML Bottle 35.7 MG CONT INF ×2 (05:09→07:00)
[2021-01-20] MEDS: TITRATION PARAMETER CHANGE 1 EACH IV (05:24)
--- NOTE | 2021-01-20 05:43 | PN.CC_ITS ---
Assessment & Plan Assessment/Plan (1) Pneumonia due to COVID-19 virus: PLAN: RECOMMENDATIONS: 1. Titrate P high and FiO2 for saturations greater than 90%. 2. Maintain patient in supine position. 3. Continue baricitinib to complete treatment course. 4. Continue to hold diuretics given CASSANDRA. 5. Continue Lovenox twice daily as ordered. 6. Continue appropriate GI prophylaxis. 7. Resume tube feeds as tolerated. IMPRESSIONS: 1. Acute hypoxemic respiratory failure secondary to ARDS due to COVID-19 pneumonia Although noninvasive positive pressure ventilatory support was initially utilized in attempt to stabilize the patient, he continued to decompensate clinically and required intubation on January 17. The patient will be continued on APRV mode of mechanical ventilation with P high and FiO2 weaned as tolerated to maintain saturations at or above 90%. The patient has already completed a treatment course of remdesivir and is on his last day of Decadron. Baricitinib will be continued to complete treatment course. Lovenox will be continued as ordered. 2. Acute kidney injury Likely prerenal in etiology. Continue to hold diuretics for now. Continue to monitor urine output for now. No current indication for renal replacement therapy. 3. Hypertension/obesity Complicates care, management, recovery and prognosis. Resume antihypertensives once extubated. Continue supportive measures including tube feeds as tolerated. TIME: 34 minutes of critical care time, independent of procedures, was spent addressing the patient's acute hypoxemic respiratory failure secondary to COVID- 19 pneumonia, acute kidney injury, hypertension, review of all data and collaboration with care team. ([id number]) Subjective Subjective The patient was seen and examined at the bedside this morning. Events from the last 24 hours have been reviewed. Last night, the patient was noted to have self extubated while he was in prone position. He did require emergent reintubation by the overnight hospitalist. He is currently being maintained on APRV with a P high of 28 and FiO2 of 80%. The patient is being maintained on fentanyl and propofol for sedation. The patient is documented to be overall net -3.4 L for the hospital admission. The patient remains on Decadron, lovenox and baricitinib. Arterial blood gas obtained this morning was appropriate. Objective Data Objective Data The patient's most recent lab work, culture data and imaging studies have all been personally reviewed. Rapid coronavirus antigen testing was positive on January 09. Sputum culture is pending. Vital Signs: Vital Signs Temp Pulse Resp BP Pulse Ox 96.8 F L 67 12 118/74 95 01/20/21 04:00 01/20/21 05:10 01/20/21 05:10 01/20/21 05:00 01/20/21 05:10 Oxygen Flow Rate (L/min) 15 Oxygen Delivery Method Mechanical Ventilator Weight: 119.1 kg Body Mass Index (BMI) 78.4 Intake & Output: Intake and Output for Last 24 Hours 01/18/21 01/19/21 01/20/21 23:59 23:59 23:59 Intake Total 742.08 / 759.50 1136.36 / 1152.64 269.46 / 269.46 Output Total 800 / 900 1250 / 1650 400 / 400 Balance -57.92 / -140.50 -113.64 / -497.36 -130.54 / -130.54 Lab / Micro Data Result Diagrams: 01/20/21 04:30 01/20/21 04:30 Labs: Laboratory Results - last 24 hr 01/19/21 04:10: Differential Comment SCANNED, Anisocytosis RARE, Macrocytosis RARE 01/19/21 04:10: ALT 65 H, Total Protein 6.4, Globulin 4.7 H Micro: Microbiology 01/17/21 08:20 Sputum, Induced/Lukens Gram Stain - Final 01/17/21 08:20 Sputum, Induced/Lukens Respiratory Culture - Final Mixed normal respiratory solange. No Streptococcus pneumoniae, beta-hemolytic Streptococcus or Staphylococcus aureus isolated. 01/18/21 06:45 Aspirate - Nose Gram Stain - Final 01/11/21 08:35 Blood Culture (Wb) - Left Hand Blood Culture - Final No growth in 5 days. 01/11/21 08:20 Blood Culture (Wb) - Anticubital Left Blood Culture - Final No growth in 5 days. 01/11/21 08:30 Nasal Secretion SARS-CoV-2 Antigen (Rapid) - Final SARS-CoV-2 (COVID 19) Radiography Diagnostic Testing: Radiology Impression Chest X-Ray 01/19/21 22:43 IMPRESSION: Support tubes in expected locations. Bilateral airspace opacities slightly improved at the left lung base compared to prior study. Electronically Signed: Martínez Juarez MD at 2:07 EDT , Service support , ADDENDUM: 01/20/21 0302 Physical Exam Const no apparent distress General Appearance: intubated and patient mechanically ventilated HEENT normocephalic and head/scalp atraumatic Mouth: endotracheal tube in place and OG tube in place Eyes PERRL Neck supple General: trachea midline Resp Auscultation: diminished lung sounds; Negative for rales, rhonchi or wheezes Cardio regular rate, regular rhythm, S1 normal heart sound and S2 normal heart sound GI normal to inspection, nondistended, normoactive bowel sounds Extremity no clubbing, cyanosis or edema Skin no rashes or lesions noted Neuro Sensorium / Orientation: sedated on vent Charges/Coding Procedures Hospitalists Procedures: 80698 Critial Care 1st Hr
[2021-01-20 06:50] LABS: Allen Test Positive; Base Excess 5 mmol/L (-2 to +2); Bicarbonate 30.1 mmol/L (22-26); Blood Gas Specimen Type ART; FI02 80; Mode BiLevel; O2 Delivery Device ET Tube; PO2 60 mmHG (75-100); RR 12; SITE R Radial; SO2 90 % (95-99); Total Carbon Dioxide 32 mmol/L; pCO2 47.7 mmHg (35-45); pH 7.41 (7.35-7.45)
[2021-01-20 07:01] LABS: Absolute Lymphocyte Count 0.52 X10^3/uL (0.83-4.51); Basophil# 0.01 X10^3/uL; Basophil% 0.1 % (0-1); Eosinophil# 0.01 X10^3/uL; Eosinophils% 0.1 % (0-5); Hematocrit 41.2 % (40-54); Hemoglobin 13.7 g/dL (13.0-16.5); Lymphocyte # 0.52 X10^3/ul (0.83-4.51); Lymphocyte % 4.3 % (19-41); Mean Corp Hgb Conc 33.3 g/dL (32-36); Mean Corpuscular Hgb 31.9 pg (27.0-32.0); Mean Corpuscular Volume 95.8 fL (80-94); Mean Platelet Vol. 10.6 fl (6.2-12.0); Monocyte# 0.62 X10^3/uL; Monocyte% 5.1 % (0-10); NRBC Flagged by Analyzer 0 % (0-5); Neutrophil # 10.95 X10^3/uL (2.7-7.7); Neutrophil % 89.6 % (47-70); POSITIVE DIFFERENTIAL YES; Platelet Count 593 K/mm3 (150-450); RBC Distribution Width CV 13.4 % (11.6-14.6); RBC Distribution Width SD 48.1 fl (35.1-43.9); White Blood Count 12.2 K/mm3 (4.4-11.0)
[2021-01-20 07:03] LABS: Differential Indicated SCAN CRITERIA MET
[2021-01-20 07:13] LABS: ALB/GLOB Ratio 0.4 RATIO (0.9-2.4); AST(SGOT) 34 U/L (15-37); Alanine Aminotransfer ALT/SGPT 57 U/L (16-61); Albumin, Serum 1.7 g/dL (3.2-5.0); Alkaline Phosphatase 72 U/L (45-117); Anion Gap 7 (5-15); BUN 46 mg/dL (7-18); BUN/Creat Ratio 30.1 RATIO (10-20); Calcium,Total 8.6 mg/dL (8.5-10.1); Chloride 102 mmol/L (98-107); Creatinine, Serum 1.53 mg/dL (0.70-1.30); EST Glomerular Filtration Rate 49 mL/min (>60); Est Glom Filt Rate - Afr Amer 59 mL/min (>60); Estimated Creatinine Clearance 54.24 ml/min; Globulin 4.6 g/dL (2.2-4.2); Glucose 106 mg/dL (74-106); Protein, Total 6.3 g/dL (6.4-8.2); Sodium Level 137 mmol/L (136-145)
[2021-01-20 07:25] LABS: Platelet Estimate SLT INC (ADEQ)
--- NOTE | 2021-01-20 08:02 | PCM.PN.HOSP ---
Subjective Subjective Patient is a 65-year-old gentleman admitted with acute hypoxic respiratory failure secondary to Covid pneumonia. Was intubated on 01/17/2021. Patient did self extubate and had to be reintubated during the night Objective Data Objective Data Vital Signs: Vital Signs Temp Pulse Resp BP Pulse Ox 96.8 F L 66 16 97/66 98 01/20/21 04:00 01/20/21 07:00 01/20/21 07:00 01/20/21 07:00 01/20/21 07:00 Oxygen Flow Rate (L/min) 15 Oxygen Delivery Method Mechanical Ventilator Weight: 119.1 kg Body Mass Index (BMI) 78.4 Intake & Output: Intake and Output for Last 24 Hours 01/18/21 01/19/21 01/20/21 23:59 23:59 23:59 Intake Total 742.08 / 759.50 1136.36 / 1152.64 365.51 / 365.51 Output Total 800 / 900 1250 / 1650 675 / 675 Balance -57.92 / -140.50 -113.64 / -497.36 -309.49 / -309.49 Lab / Micro Data Result Diagrams: 01/20/21 04:30 01/20/21 04:30 Labs: Laboratory Results - last 24 hr 01/20/21 04:30: WBC 12.2 H, RBC 4.30 L, Hgb 13.7, Hct 41.2, MCV 95.8 H, MCH 31.9, MCHC 33.3, RDW Std Deviation 48.1 H, RDW Coeff of Anusha 13.4, Plt Count 593 H, MPV 10.6, Immature Gran % (Auto) 0.800, Neut % (Auto) 89.6 H, Lymph % (Auto) 4.3 L, [place] % (Auto) 5.1, Eos % (Auto) 0.1, Baso % (Auto) 0.1, Absolute Neuts (auto) 11.0 H, Absolute Lymphs (auto) 0.52 L, Nucleated RBC % 0, Platelet Estimate [facility] 01/20/21 04:30: Sodium 137, Potassium 4.0, Chloride 102, Carbon Dioxide 28.0, Anion Gap 7, BUN 46 H, Creatinine 1.53 H, Estim Creat Clear Calc 54.24, Est GFR (MDRD) Af Amer 59 L, Est GFR (MDRD) Non-Af 49 L, BUN/Creatinine Ratio 30.1 H, Glucose 106, Calcium 8.6, Total Bilirubin 0.70, AST 34, ALT 57, Alkaline Phosphatase 72, Total Protein 6.3 L, Albumin 1.7 L, Globulin 4.6 H, Albumin/Globulin Ratio 0.4 L Micro: Microbiology 01/17/21 08:20 Sputum, Induced/Lukens Gram Stain - Final 01/17/21 08:20 Sputum, Induced/Lukens Respiratory Culture - Final Mixed normal respiratory solange. No Streptococcus pneumoniae, beta-hemolytic Streptococcus or Staphylococcus aureus isolated. 01/18/21 06:45 Aspirate - Nose Gram Stain - Final 01/11/21 08:35 Blood Culture (Wb) - Left Hand Blood Culture - Final No growth in 5 days. 01/11/21 08:20 Blood Culture (Wb) - Anticubital Left Blood Culture - Final No growth in 5 days. 01/11/21 08:30 Nasal Secretion SARS-CoV-2 Antigen (Rapid) - Final SARS-CoV-2 (COVID 19) ABG Data ABG results: ABG 01/20/21 06:43 Specimen Type ART Sample Site R Radial pH 7.41 Bicarbonate Actual 30.1 H Total CO2 32 Base Excess 5 H O2 Saturation 90 L O2 % 80 ABG pCO2 47.7 H ABG pO2 60 L Rohit Test Positive Respiration Rate 12 O2 Delivery Device ET Tube Vent Mode BiLevel Radiography Diagnostic Testing: Radiology Impression Chest X-Ray 01/17/21 08:29 IMPRESSION: Endotracheal tube and nasogastric tube are in good position. Persistent bilateral pulmonary infiltrates although there has been improvement as compared to prior study. Electronically Signed: Ayad Brown MD at 9:08 EDT , Service support , Chest X-Ray 01/19/21 22:43 IMPRESSION: Support tubes in expected locations. Bilateral airspace opacities slightly improved at the left lung base compared to prior study. Electronically Signed: Martínez Juarez MD at 2:07 EDT , Service support , ADDENDUM: 01/20/21 0302 ADDENDUM: 01/20/21 8425 Physical Exam Narrative GENERAL: Sedated on the vent HEENT: Atraumatic; EYES; Anicteric, Normal Conjunctiva NECK; supple, normal thyroid, RESPIRATORY: Diminished to auscultation CARDIOVASCULAR: Regular S1 S2, GI: soft, normoactive bowel sounds, : No Renal angle tenderness; EXTREMITIES: No edema, no clubbing, MUSCULOSKELETAL: no muscle waisting NEURO: Sedated on the vent SKIN: No Rash PSYCH; sedated on the vent Assessment & Plan Assessment/Plan (1) Pneumonia due to COVID-19 virus: (2) Acute respiratory failure with hypoxia: PLAN: Patient is a 65-year-old gentleman admitted with acute hypoxic respiratory failure secondary to Covid pneumonia. Was intubated on 01/17/2021. 1. Acute hypoxic respiratory failure ?Secondary to SARS-CoV-2 pneumonia. Patient has completed a course of remdesivir currently remains on Decadron ambrisentan 8. Patient was intubated on 01/17/2021. He apparently self extubated on the morning of 01/20/2021 and had to be reintubated. 2. Acute kidney injury ?Potential nephrotoxic medications held 3. Essential hypertension ?Patient blood pressure on hold 4. Depression with anxiety ?Patient was Paxil prior to intubation 5. DVT prophylaxis ?Lovenox Charges/Coding Visit Charges Inpatient E&M: 84957 Subs Hosp L3
[2021-01-20] MEDS: Propofol 10MG/Ml 1,000 MG/100 ML Bottle 25 MG CONT INF (09:50)
[2021-01-20] MEDS: Chlorhexidine 15 ML PO ×2 (10:01→21:10)
[2021-01-20] MEDS: Senna/Docusate Sodium 1 Tablet 2 TABLET GT ×2 (10:04→21:11)
[2021-01-20] MEDS: Enoxaparin 40 MG/0.4 ML Syringe SC ×2 (10:04→21:11)
[2021-01-20] MEDS: dexAMETHasone 4 MG/ML Vial 6 MG IV (10:04)
[2021-01-20] MEDS: Paroxetine 20 MG Tablet 40 MG GT (10:05)
--- NOTE | 2021-01-20 12:25 | CASEMGMT ---
Addendum entered by Elisa Calderon 01/20/21 13:12: SW spoke w/pt's , support given. She states they have three sons, one is local, two are out of town. They are supportive. SW remains available for support to pt's family. ALEXANDRA Rodriguez Original Note: SW participated in ICU rounds. SW called , message left to offer support. SW will continue to follow for supportive needs. ALEXANDRA Rodriguez
--- NOTE | 2021-01-20 12:43 | PCM.PN.ID ---
Physical Exam Narrative On vent, at bedside, no fever Const no apparent distress Resp clear to auscultation bilaterally Auscultation: diminished lung sounds Cardio regular rate and regular rhythm GI normal to inspection, nondistended, normoactive bowel sounds Skin no rashes or lesions noted ID ID: Route of nutrition/ use of supplements: [] Nutritional Intake: [] IV Site: [] Sanches Catheter: [] Assessment & Plan Assessment/Plan (1) Pneumonia due to COVID-19 virus: PLAN: Sx started around 01/01, but he reports could be as early at 12/28/10. and son also sick. Unvaccinated. Now out of iso. Recommend vaccine once discharged. On dex/baricitnib. Stopped remdesivir due to CASSANDRA. Will decrease baricitinib dose due to worsened GFR. On vent. Will follow (2) Acute respiratory failure with hypoxia: (3) CASSANDRA (acute kidney injury):
[2021-01-20] MEDS: CHLORHEXIDINE GLUC 2% CLOTH 1 EACH TOWELETTE TOPICAL (13:19)
[2021-01-20] MEDS: Vital AF 1.2 Cal Liquid 1,000 ML 70 ML GT (13:19)
[2021-01-20] MEDS: Propofol 10MG/Ml 1,000 MG/100 ML Bottle 21.4 MG CONT INF (13:26)
[2021-01-20] MEDS: Propofol 10MG/Ml 1,000 MG/100 ML Bottle 10.7 MG CONT INF (18:42)
[2021-01-21] VITALS (40 sets, daily range): BP systolic 103–131; BP diastolic 62–84; PULSE 60–92; RESP 12–30; TEMP 36.1–37.3; O2SAT 90–95
[2021-01-21] MEDS: Propofol 10MG/Ml 1,000 MG/100 ML Bottle 14.3 MG CONT INF (01:45)
[2021-01-21] MEDS: Acetaminophen 650 MG/20 ML UDC GT ×4 (03:18→20:03)
[2021-01-21 03:37] LABS: Absolute Lymphocyte Count 0.46 X10^3/uL (0.83-4.51); Absolute Neutrophil Count 12.9 X10^3/uL (2.0-7.7); Basophil# 0.03 X10^3/uL; Basophil% 0.2 % (0-1); Eosinophil# 0.01 X10^3/uL; Eosinophils% 0.1 % (0-5); Hematocrit 41.4 % (40-54); Hemoglobin 13.8 g/dL (13.0-16.5); Lymphocyte # 0.46 X10^3/ul (0.83-4.51); Lymphocyte % 3.3 % (19-41); Mean Corp Hgb Conc 33.3 g/dL (32-36); Mean Corpuscular Hgb 31.7 pg (27.0-32.0); Mean Platelet Vol. 9.9 fl (6.2-12.0); Monocyte# 0.52 X10^3/uL; Monocyte% 3.7 % (0-10); NRBC Flagged by Analyzer 0 % (0-5); Neutrophil # 12.89 X10^3/uL (2.7-7.7); Neutrophil % 91.8 % (47-70); POSITIVE DIFFERENTIAL YES; Platelet Count 660 K/mm3 (150-450); RBC Distribution Width CV 13.4 % (11.6-14.6); RBC Distribution Width SD 47.4 fl (35.1-43.9); Red Blood Count 4.36 M/mm3 (4.6-6.2)
[2021-01-21 03:43] LABS: Differential Indicated SCAN CRITERIA MET
[2021-01-21 04:00] LABS: ALB/GLOB Ratio 0.4 RATIO (0.9-2.4); AST(SGOT) 54 U/L (15-37); Alanine Aminotransfer ALT/SGPT 75 U/L (16-61); Albumin, Serum 1.8 g/dL (3.2-5.0); Alkaline Phosphatase 78 U/L (45-117); Anion Gap 6 (5-15); BUN 48 mg/dL (7-18); Calcium,Total 8.9 mg/dL (8.5-10.1); Chloride 102 mmol/L (98-107); Creatinine, Serum 1.55 mg/dL (0.70-1.30); EST Glomerular Filtration Rate 48 mL/min (>60); Est Glom Filt Rate - Afr Amer 58 mL/min (>60); Estimated Creatinine Clearance 53.54 ml/min; Globulin 5.1 g/dL (2.2-4.2); Glucose 123 mg/dL (74-106); Magnesium 2.7 mg/dL (1.6-2.6); Potassium 4.1 mmol/L (3.5-5.1); Protein, Total 6.9 g/dL (6.4-8.2); Sodium Level 138 mmol/L (136-145)
[2021-01-21 04:37] LABS: Differential Comment SCANNED
[2021-01-21 05:11] LABS: Base Excess 4 mmol/L (-2 to +2); Bicarbonate 28.8 mmol/L (22-26); Blood Gas Specimen Type ART; FI02 80; Mode BiLevel; O2 Delivery Device Adult Vent; PO2 83 mmHG (75-100); RR 12; SITE L Radial; SO2 96 % (95-99); Total Carbon Dioxide 30 mmol/L; pCO2 49.2 mmHg (35-45); pH 7.38 (7.35-7.45)
--- NOTE | 2021-01-21 05:36 | PCM.PN.INT ---
Assessment & Plan Assessment/Plan (1) Pneumonia due to COVID-19 virus: PLAN: RECOMMENDATIONS: 1. Titrate P high and FiO2 for saturations greater than 90%. 2. Maintain patient in supine position. 3. Continue baricitinib to complete treatment course. 4. Continue to hold diuretics given CASSANDRA. 5. Continue Lovenox twice daily as ordered. 6. Continue appropriate GI prophylaxis. 7. Continue tube feeds as tolerated. 8. Start empiric antimicrobials. 9. Recheck D-dimer. IMPRESSIONS: 1. Acute hypoxemic respiratory failure secondary to ARDS due to COVID-19 pneumonia Although noninvasive positive pressure ventilatory support was initially utilized in attempt to stabilize the patient, he continued to decompensate clinically and required intubation on January 17. The patient will be continued on APRV mode of mechanical ventilation with P high and FiO2 weaned as tolerated to maintain saturations at or above 90%. The patient has already completed a treatment course of remdesivir and Decadron. Baricitinib will be continued to complete treatment course. Lovenox will be continued as ordered. Given the patient's tenuous respiratory status and increase in secretion production, the patient was started on antimicrobials on January 21. 2. Acute kidney injury Likely prerenal in etiology. Continue to hold diuretics for now. Continue to monitor urine output for now. No current indication for renal replacement therapy. 3. Hypertension/obesity Complicates care, management, recovery and prognosis. Resume antihypertensives once extubated. Continue supportive measures including tube feeds as tolerated. TIME: 33 minutes of critical care time, independent of procedures, was spent addressing the patient's acute hypoxemic respiratory failure secondary to COVID-19 pneumonia, acute kidney injury, hypertension, review of all data and collaboration with care team. ([id number]) Subjective Subjective The patient was seen and examined at the bedside this morning. Events from the last 24 hours have been reviewed. The patient is currently being maintained on APRV with a P high of 28 and FiO2 of 80%. The patient is being maintained on fentanyl and propofol for sedation. He is documented to be overall net -2.9 L for the hospital admission. The patient remains on Decadron, lovenox and baricitinib. Nursing staff did report a significant increase in his endotracheal tube secretion output. Therefore, the patient was placed on empiric antimicrobials this morning. ABG this morning is appropriate. Creatinine is stable at 1.5. Objective Data Objective Data The patient's most recent lab work, culture data and imaging studies have all been personally reviewed. Rapid coronavirus antigen testing was positive on January 09. Sputum culture is pending. Vital Signs: Vital Signs Temp Pulse Resp BP Pulse Ox 99.2 F H 76 14 116/80 93 01/21/21 04:00 01/21/21 05:00 01/21/21 05:00 01/21/21 05:00 01/21/21 05:30 Oxygen Flow Rate (L/min) 15 Oxygen Delivery Method Mechanical Ventilator Weight: 117.1 kg Body Mass Index (BMI) 78.4 Intake & Output: Intake and Output for Last 24 Hours 01/19/21 01/20/21 01/21/21 23:59 23:59 23:59 Intake Total 1136.36 / 1152.64 967.77 / 1189.57 330.81 / 330.81 Output Total 1250 / 1650 1100 / 1300 200 / 200 Balance -113.64 / -497.36 -132.23 / -110.43 130.81 / 130.81 Lab / Micro Data Attestation: I reviewed the patient's lab results. Result Diagrams: 01/21/21 03:25 01/21/21 03:25 Labs: Laboratory Results - last 24 hr 01/20/21 04:30: WBC 12.2 H, RBC 4.30 L, Hgb 13.7, Hct 41.2, MCV 95.8 H, MCH 31.9, MCHC 33.3, RDW Std Deviation 48.1 H, RDW Coeff of Anusha 13.4, Plt Count 593 H, MPV 10.6, Immature Gran % (Auto) 0.800, Neut % (Auto) 89.6 H, Lymph % (Auto) 4.3 L, [place] % (Auto) 5.1, Eos % (Auto) 0.1, Baso % (Auto) 0.1, Absolute Neuts (auto) 11.0 H, Absolute Lymphs (auto) 0.52 L, Nucleated RBC % 0, Platelet Estimate [facility] 01/20/21 04:30: Sodium 137, Potassium 4.0, Chloride 102, Carbon Dioxide 28.0, Anion Gap 7, BUN 46 H, Creatinine 1.53 H, Estim Creat Clear Calc 54.24, Est GFR (MDRD) Af Amer 59 L, Est GFR (MDRD) Non-Af 49 L, BUN/Creatinine Ratio 30.1 H, Glucose 106, Calcium 8.6, Total Bilirubin 0.70, AST 34, ALT 57, Alkaline Phosphatase 72, Total Protein 6.3 L, Albumin 1.7 L, Globulin 4.6 H, Albumin/Globulin Ratio 0.4 L 01/21/21 03:25: WBC 14.0 H, RBC 4.36 L, Hgb 13.8, Hct 41.4, MCV 95.0 H, MCH 31.7, MCHC 33.3, RDW Std Deviation 47.4 H, RDW Coeff of Anusha 13.4, Plt Count 660 H, MPV 9.9, Immature Gran % (Auto) 0.900, Neut % (Auto) 91.8 H, Lymph % (Auto) 3.3 L, [place] % (Auto) 3.7, Eos % (Auto) 0.1, Baso % (Auto) 0.2, Absolute Neuts (auto) 12.9 H, Absolute Lymphs (auto) 0.46 L, Nucleated RBC % 0, Differential Comment SCANNED 01/21/21 03:25: Sodium 138, Potassium 4.1, Chloride 102, Carbon Dioxide 30.0, Anion Gap 6, BUN 48 H, Creatinine 1.55 H, Estim Creat Clear Calc 53.54, Est GFR (MDRD) Af Amer 58 L, Est GFR (MDRD) Non-Af 48 L, BUN/Creatinine Ratio 31.0 H, Glucose 123 H, Calcium 8.9, Magnesium 2.7 H, Total Bilirubin 0.80, AST 54 H, ALT 75 H, Alkaline Phosphatase 78, Total Protein 6.9, Albumin 1.8 L, Globulin 5.1 H, Albumin/Globulin Ratio 0.4 L Micro: Microbiology 01/18/21 06:45 Aspirate - Nose Gram Stain - Final 01/18/21 06:45 Aspirate - Nose Nasopharyngeal Culture - Preliminary Staphylococcus aureus Gram positive mely 01/17/21 08:20 Sputum, Induced/Lukens Gram Stain - Final 01/17/21 08:20 Sputum, Induced/Lukens Respiratory Culture - Final Mixed normal respiratory solange. No Streptococcus pneumoniae, beta-hemolytic Streptococcus or Staphylococcus aureus isolated. 01/11/21 08:35 Blood Culture (Wb) - Left Hand Blood Culture - Final No growth in 5 days. 01/11/21 08:20 Blood Culture (Wb) - Anticubital Left Blood Culture - Final No growth in 5 days. 01/11/21 08:30 Nasal Secretion SARS-CoV-2 Antigen (Rapid) - Final SARS-CoV-2 (COVID 19) ABG Data ABG results: ABG 01/20/21 01/21/21 06:43 05:07 Specimen Type ART ART Sample Site R Radial L Radial pH 7.41 7.38 Bicarbonate Actual 30.1 H 28.8 H Total CO2 32 30 Base Excess 5 H 4 H O2 Saturation 90 L 96 O2 % 80 80 ABG pCO2 47.7 H 49.2 H ABG pO2 60 L 83 Rohit Test Positive N/A Respiration Rate 12 12 O2 Delivery Device ET Tube Adult Vent Vent Mode BiLevel BiLevel Radiography Diagnostic Testing: Radiology Impression Chest X-Ray 01/17/21 08:29 IMPRESSION: Endotracheal tube and nasogastric tube are in good position. Persistent bilateral pulmonary infiltrates although there has been improvement as compared to prior study. Electronically Signed: Ayad Brown MD at 9:08 EDT , Service support , Chest X-Ray 01/19/21 22:43 IMPRESSION: Support tubes in expected locations. Bilateral airspace opacities slightly improved at the left lung base compared to prior study. Electronically Signed: Martínez Juarez MD at 2:07 EDT , Service support , ADDENDUM: 01/20/21 0302 ADDENDUM: 01/20/21 0752 KUB X-Ray 01/20/21 01:28 IMPRESSION: OGT projects subdiaphragmatic within the stomach. at 0804 Reported and signed by: Lonnie Alberts MD Electronically Signed: Lonnie Alberts MD at 8:02 EDT Tel , Service support , Physical Exam Const no apparent distress General Appearance: intubated and patient mechanically ventilated HEENT normocephalic and head/scalp atraumatic Mouth: endotracheal tube in place and OG tube in place Eyes PERRL and conjunctivae normal Neck supple General: trachea midline Chest inspection of chest normal Resp Auscultation: rhonchi and diminished lung sounds; Negative for rales or wheezes Cardio regular rate, regular rhythm, S1 normal heart sound and S2 normal heart sound GI normal to inspection, nondistended, normoactive bowel sounds Extremity no clubbing, cyanosis or edema Skin no rashes or lesions noted Neuro Sensorium / Orientation: sedated on vent Charges/Coding Procedures Hospitalists Procedures: [id number] Critial Care 1st Hr
[2021-01-21] MEDS: TITRATION PARAMETER CHANGE 1 EACH IV (05:39)
--- NOTE | 2021-01-21 06:25 | PCM.RX.CS ---
Consult Pharmacy has been consulted to manage selected antiobiotic: Vancomycin Type of Consult: New start Suspected Infection: Pneumonia Prior Doses of Antibiotics Received/Current Regimen: Medications Vancomycin HCl 1,250 mg/ (Sodium Chloride) 275 mls @ 167 mls/hr IV Q12H RYAN Vancomycin HCl 2,000 mg/ (Sodium Chloride) 540 mls @ 250 mls/hr IV X1 ONE Stop: 01/21/21 08:09 Last Admin: 01/21/21 06:15 Dose: 250 mls/hr Labs: Sodium 138 mmol/L (136-145) 01/21/21 03:25 Potassium 4.1 mmol/L (3.5-5.1) 01/21/21 03:25 Chloride 102 mmol/L (98-107) 01/21/21 03:25 Carbon Dioxide 30.0 mmol/L (21.0-32.0) 01/21/21 03:25 Anion Gap 6 (5-15) 01/21/21 03:25 BUN 48 mg/dL (7-18) H 01/21/21 03:25 Creatinine 1.55 mg/dL (0.70-1.30) H 01/21/21 03:25 Est GFR (MDRD) Af Amer 58 mL/min (>60) L 01/21/21 03:25 Est GFR (MDRD) Non-Af 48 mL/min (>60) L 01/21/21 03:25 BUN/Creatinine Ratio 31.0 RATIO (10-20) H 01/21/21 03:25 Glucose 123 mg/dL (74-106) H 01/21/21 03:25 Microbiology: Microbiology 01/18/21 06:45 Aspirate - Nose Gram Stain - Final 01/18/21 06:45 Aspirate - Nose Nasopharyngeal Culture - Preliminary Staphylococcus aureus Gram positive mely 01/17/21 08:20 Sputum, Induced/Lukens Gram Stain - Final 01/17/21 08:20 Sputum, Induced/Lukens Respiratory Culture - Final Mixed normal respiratory solange. No Streptococcus pneumoniae, beta-hemolytic Streptococcus or Staphylococcus aureus isolated. 01/11/21 08:35 Blood Culture (Wb) - Left Hand Blood Culture - Final No growth in 5 days. 01/11/21 08:20 Blood Culture (Wb) - Anticubital Left Blood Culture - Final No growth in 5 days. 01/11/21 08:30 Nasal Secretion SARS-CoV-2 Antigen (Rapid) - Final SARS-CoV-2 (COVID 19) Weight used for dosin.1 kg Estimated Creatinine Clearance: 53.5 Goal Trough: 15-20 mcg/mL Pharmacy Plan for Drug Dosing: Pharmacy Service will continue to monitor and adjust dosing as required. Follow-Up Labs: Trough Vancomycin Labs to be done on [date and time ordered]: 01/22/21 @3627
[2021-01-21] MEDS: Propofol 10MG/Ml 1,000 MG/100 ML Bottle 14.1 MG CONT INF ×3 (06:35→20:08)
--- NOTE | 2021-01-21 07:10 | PN.HOSP_ITS ---
Subjective Subjective Patient seen still remains on the vent. Vent settings as per pulmonary medicine. WBC count slightly elevated at 14 Objective Data Objective Data Vital Signs: Vital Signs Temp Pulse Resp BP Pulse Ox 99.2 F H 81 18 130/83 H 93 01/21/21 04:00 01/21/21 07:00 01/21/21 07:00 01/21/21 07:00 01/21/21 07:00 Oxygen Flow Rate (L/min) 15 Oxygen Delivery Method Mechanical Ventilator Weight: 117.1 kg Body Mass Index (BMI) 78.4 Intake & Output: Intake and Output for Last 24 Hours 01/19/21 01/20/21 01/21/21 23:59 23:59 23:59 Intake Total 1136.36 / 1152.64 967.77 / 1189.57 499.21 / 499.21 Output Total 1250 / 1650 1100 / 1300 350 / 350 Balance -113.64 / -497.36 -132.23 / -110.43 149.21 / 149.21 Lab / Micro Data Result Diagrams: 01/21/21 03:25 01/21/21 03:25 Labs: Laboratory Results - last 24 hr 01/20/21 04:30: Platelet Estimate [facility] 01/20/21 04:30: Sodium 137, Potassium 4.0, Chloride 102, Carbon Dioxide 28.0, Anion Gap 7, BUN 46 H, Creatinine 1.53 H, Estim Creat Clear Calc 54.24, Est GFR (MDRD) Af Amer 59 L, Est GFR (MDRD) Non-Af 49 L, BUN/Creatinine Ratio 30.1 H, Glucose 106, Calcium 8.6, Total Bilirubin 0.70, AST 34, ALT 57, Alkaline Phosphatase 72, Total Protein 6.3 L, Albumin 1.7 L, Globulin 4.6 H, Albumin/Globulin Ratio 0.4 L 01/21/21 03:25: WBC 14.0 H, RBC 4.36 L, Hgb 13.8, Hct 41.4, MCV 95.0 H, MCH 31.7, MCHC 33.3, RDW Std Deviation 47.4 H, RDW Coeff of Anusha 13.4, Plt Count 660 H, MPV 9.9, Immature Gran % (Auto) 0.900, Neut % (Auto) 91.8 H, Lymph % (Auto) 3.3 L, [place] % (Auto) 3.7, Eos % (Auto) 0.1, Baso % (Auto) 0.2, Absolute Neuts (auto) 12.9 H, Absolute Lymphs (auto) 0.46 L, Nucleated RBC % 0, Differential Comment SCANNED 01/21/21 03:25: Sodium 138, Potassium 4.1, Chloride 102, Carbon Dioxide 30.0, Anion Gap 6, BUN 48 H, Creatinine 1.55 H, Estim Creat Clear Calc 53.54, Est GFR (MDRD) Af Amer 58 L, Est GFR (MDRD) Non-Af 48 L, BUN/Creatinine Ratio 31.0 H, Glucose 123 H, Calcium 8.9, Magnesium 2.7 H, Total Bilirubin 0.80, AST 54 H, ALT 75 H, Alkaline Phosphatase 78, Total Protein 6.9, Albumin 1.8 L, Globulin 5.1 H, Albumin/Globulin Ratio 0.4 L 01/21/21 06:30: D-Dimer Quant (PE/DVT) 0.60 H* Micro: Microbiology 01/18/21 06:45 Aspirate - Nose Gram Stain - Final 01/18/21 06:45 Aspirate - Nose Nasopharyngeal Culture - Preliminary Staphylococcus aureus Gram positive mely 01/17/21 08:20 Sputum, Induced/Lukens Gram Stain - Final 01/17/21 08:20 Sputum, Induced/Lukens Respiratory Culture - Final Mixed normal respiratory solange. No Streptococcus pneumoniae, beta-hemolytic Streptococcus or Staphylococcus aureus isolated. 01/11/21 08:35 Blood Culture (Wb) - Left Hand Blood Culture - Final No growth in 5 days. 01/11/21 08:20 Blood Culture (Wb) - Anticubital Left Blood Culture - Final No growth in 5 days. 01/11/21 08:30 Nasal Secretion SARS-CoV-2 Antigen (Rapid) - Final SARS-CoV-2 (COVID 19) ABG Data ABG results: ABG 01/21/21 05:07 Specimen Type ART Sample Site L Radial pH 7.38 Bicarbonate Actual 28.8 H Total CO2 30 Base Excess 4 H O2 Saturation 96 O2 % 80 ABG pCO2 49.2 H ABG pO2 83 Rohit Test N/A Respiration Rate 12 O2 Delivery Device Adult Vent Vent Mode BiLevel Radiography Diagnostic Testing: Radiology Impression Chest X-Ray 10/01/21 08:29 IMPRESSION: Endotracheal tube and nasogastric tube are in good position. Persistent bilateral pulmonary infiltrates although there has been improvement as compared to prior study. Electronically Signed: Ayad Brown MD at 9:08 EDT , Service support , Chest X-Ray 01/19/21 22:43 IMPRESSION: Support tubes in expected locations. Bilateral airspace opacities slightly improved at the left lung base compared to prior study. Electronically Signed: Martínez Juarez MD at 2:07 EDT , Service support , ADDENDUM: 01/20/21 0302 ADDENDUM: 01/20/21 0752 KUB X-Ray 01/20/21 01:28 IMPRESSION: OGT projects subdiaphragmatic within the stomach. at 0804 Reported and signed by: Lonnie Alberts MD Electronically Signed: Lonnie Alberts MD at 8:02 EDT Tel , Service support , Physical Exam Narrative GENERAL: Sedated on the vent HEENT: Atraumatic; EYES; Anicteric, Normal Conjunctiva NECK; supple, normal thyroid, RESPIRATORY: Diminished to auscultation CARDIOVASCULAR: Regular S1 S2, GI: soft, normoactive bowel sounds, : No Renal angle tenderness; EXTREMITIES: No edema, no clubbing, MUSCULOSKELETAL: no muscle waisting NEURO: Sedated on the vent SKIN: No Rash PSYCH; sedated on the vent Assessment & Plan Assessment/Plan (1) Pneumonia due to COVID-19 virus: (2) Acute respiratory failure with hypoxia: PLAN: Patient is a 65-year-old gentleman admitted with acute hypoxic respiratory failure secondary to Covid pneumonia. Was intubated on 01/17/2021. 1. Acute hypoxic respiratory failure ?Secondary to SARS-CoV-2 pneumonia. Patient has completed a course of remdesivir currently remains on Decadron and baricitinib. Patient was intubated on 01/17/2021. He apparently self extubated on the morning of 01/20/2021 and had to be reintubated. -01/21/2021;Patient seen still remains on the vent. Vent settings as per pulmonary medicine. WBC count slightly elevated at 14 2. Acute kidney injury ?Potential nephrotoxic medications held 3. Essential hypertension ?Patient blood pressure on hold 4. Depression with anxiety ?Patient was Paxil prior to intubation 5. DVT prophylaxis ?Lovenox Charges/Coding Visit Charges Inpatient E&M: 74865 [facility] Hosp L3
[2021-01-21] MEDS: Chlorhexidine 15 ML PO ×2 (09:34→20:03)
[2021-01-21] MEDS: Enoxaparin 40 MG/0.4 ML Syringe SC ×2 (09:34→20:03)
[2021-01-21] MEDS: CHLORHEXIDINE GLUC 2% CLOTH 1 EACH TOWELETTE TOPICAL (09:34)
[2021-01-21] MEDS: Paroxetine 20 MG Tablet 40 MG GT (09:35)
[2021-01-21] MEDS: Senna/Docusate Sodium 1 Tablet 2 TABLET GT ×2 (09:36→20:03)
[2021-01-21 12:00] LABS: M R Staph aureus DNA By PCR Negative (Negative); Probe Check PASS; Specimen Processing Control PASS
[2021-01-21] MEDS: Vital AF 1.2 Cal Liquid 1,000 ML 45 ML GT (17:27)
[2021-01-22] VITALS (38 sets, daily range): BP systolic 101–134; BP diastolic 67–83; PULSE 67–112; RESP 12–39; TEMP 36.4–37.2; O2SAT 88–94
[2021-01-22] MEDS: Propofol 10MG/Ml 1,000 MG/100 ML Bottle 14.1 MG CONT INF ×3 (03:14→18:00)
[2021-01-22 03:15] LABS: Absolute Neutrophil Count 12.3 X10^3/uL (2.0-7.7); Basophil# 0.01 X10^3/uL; Basophil% 0.1 % (0-1); Eosinophils% 1.5 % (0-5); Hematocrit 39.4 % (40-54); Hemoglobin 12.9 g/dL (13.0-16.5); Lymphocyte % 3.7 % (19-41); Mean Corp Hgb Conc 32.7 g/dL (32-36); Mean Corpuscular Hgb 31.1 pg (27.0-32.0); Mean Corpuscular Volume 94.9 fL (80-94); Mean Platelet Vol. 9.7 fl (6.2-12.0); Monocyte# 0.41 X10^3/uL; NRBC Flagged by Analyzer 0 % (0-5); Neutrophil # 12.27 X10^3/uL (2.7-7.7); Neutrophil % 90.5 % (47-70); POSITIVE DIFFERENTIAL YES; Platelet Count 577 K/mm3 (150-450); RBC Distribution Width CV 13.7 % (11.6-14.6); RBC Distribution Width SD 48.4 fl (35.1-43.9); Red Blood Count 4.15 M/mm3 (4.6-6.2); White Blood Count 13.6 K/mm3 (4.4-11.0)
[2021-01-22 03:32] LABS: ALB/GLOB Ratio 0.3 RATIO (0.9-2.4); AST(SGOT) 50 U/L (15-37); Alanine Aminotransfer ALT/SGPT 84 U/L (16-61); Albumin, Serum 1.5 g/dL (3.2-5.0); Alkaline Phosphatase 84 U/L (45-117); Anion Gap 8 (5-15); BUN 47 mg/dL (7-18); BUN/Creat Ratio 28.3 RATIO (10-20); Calcium,Total 8.5 mg/dL (8.5-10.1); Chloride 103 mmol/L (98-107); Creatinine, Serum 1.66 mg/dL (0.70-1.30); EST Glomerular Filtration Rate 45 mL/min (>60); Est Glom Filt Rate - Afr Amer 54 mL/min (>60); Estimated Creatinine Clearance 49.99 ml/min; Glucose 125 mg/dL (74-106); Potassium 3.7 mmol/L (3.5-5.1); Protein, Total 6.5 g/dL (6.4-8.2); Sodium Level 139 mmol/L (136-145)
[2021-01-22 03:34] LABS: Differential Indicated SCAN CRITERIA MET
[2021-01-22 04:46] LABS: Base Excess 2 mmol/L (-2 to +2); Bicarbonate 26.8 mmol/L (22-26); Blood Gas Specimen Type ART; FI02 60; Mode BiLevel; O2 Delivery Device Adult Vent; PO2 57 mmHG (75-100); RR 12; SITE L Radial; SO2 89 % (95-99); Total Carbon Dioxide 28 mmol/L; pCO2 43.8 mmHg (35-45); pH 7.39 (7.35-7.45)
--- NOTE | 2021-01-22 05:21 | PCM.PN.INT ---
Assessment & Plan Assessment/Plan (1) Pneumonia due to COVID-19 virus: PLAN: RECOMMENDATIONS: 1. Titrate P high and FiO2 for saturations greater than 90%. 2. Continue baricitinib to complete treatment course. 3. Reattempt diuretic challenge today. 4. Continue Lovenox twice daily as ordered. 5. Continue appropriate GI prophylaxis. 6. Continue tube feeds as tolerated. 7. Continue antimicrobials. IMPRESSIONS: 1. Acute hypoxemic respiratory failure secondary to ARDS due to COVID-19 pneumonia Although noninvasive positive pressure ventilatory support was initially utilized in attempt to stabilize the patient, he continued to decompensate clinically and required intubation on January 17. The patient will be continued on APRV mode of mechanical ventilation with P high and FiO2 weaned as tolerated to maintain saturations at or above 90%. The patient has already completed a treatment course of remdesivir and Decadron. Baricitinib will be continued to complete treatment course. Lovenox will be continued as ordered. Given the patient's tenuous respiratory status and increase in secretion production, the patient was started on antimicrobials on January 21. We will plan to give Lasix today as well. 2. Acute kidney injury Likely prerenal in etiology. Continue to monitor urine output for now. No current indication for renal replacement therapy. 3. Hypertension/obesity Complicates care, management, recovery and prognosis. Resume antihypertensives once extubated. Continue supportive measures including tube feeds as tolerated. TIME: 33 minutes of critical care time, independent of procedures, was spent addressing the patient's acute hypoxemic respiratory failure secondary to COVID-19 pneumonia, acute kidney injury, hypertension, review of all data and collaboration with care team. ([id number]) Subjective Subjective The patient was seen and examined at the bedside this morning. Events from the last 24 hours have been reviewed. The patient is currently being maintained on APRV with a P high of 28 and FiO2 of 65%. The patient is being maintained on fentanyl and propofol for sedation. He is documented to be overall net -600mL for the hospital admission. The patient remains on lovenox and baricitinib. Secretion output from his endotracheal tube is improving. The patient is currently tolerating tube feeds. Objective Data Objective Data The patient's most recent lab work, culture data and imaging studies have all been personally reviewed. Rapid coronavirus antigen testing was positive on January 09. Sputum culture is pending. Vital Signs: Vital Signs Temp Pulse Resp BP Pulse Ox 99 F 81 12 133/78 H 91 01/22/21 04:00 01/22/21 05:00 01/22/21 05:00 01/22/21 05:00 01/22/21 05:00 Oxygen Flow Rate (L/min) 15 Oxygen Delivery Method Mechanical Ventilator Weight: 117 kg Body Mass Index (BMI) 78.4 Intake & Output: Intake and Output for Last 24 Hours 01/20/21 01/21/21 01/22/21 23:59 23:59 23:59 Intake Total 967.77 / 1189.57 3566.44 / 3588.04 114.8 / 114.8 Output Total 1100 / 1300 1150 / 1150 150 / 150 Balance -132.23 / -110.43 2416.44 / 2438.04 -35.2 / -35.2 Lab / Micro Data Attestation: I reviewed the patient's lab results. Result Diagrams: 01/22/21 03:10 01/22/21 03:10 Labs: Laboratory Results - last 24 hr 01/21/21 06:20: MRSA (PCR) Negative 01/21/21 06:30: D-Dimer Quant (PE/DVT) 0.60 H* 01/22/21 03:10: WBC 13.6 H, RBC 4.15 L, Hgb 12.9 L, Hct 39.4 L, MCV 94.9 H, MCH 31.1, MCHC 32.7, RDW Std Deviation 48.4 H, RDW Coeff of Anusha 13.7, Plt Count 577 H, MPV 9.7, Immature Gran % (Auto) 1.200 H, Neut % (Auto) 90.5 H, Lymph % (Auto) 3.7 L, [place] % (Auto) 3.0, Eos % (Auto) 1.5, Baso % (Auto) 0.1, Absolute Neuts (auto) 12.3 H, Absolute Lymphs (auto) 0.50 L, Nucleated RBC % 0 01/22/21 03:10: Sodium 139, Potassium 3.7, Chloride 103, Carbon Dioxide 28.0, Anion Gap 8, BUN 47 H, Creatinine 1.66 H, Estim Creat Clear Calc 49.99, Est GFR (MDRD) Af Amer 54 L, Est GFR (MDRD) Non-Af 45 L, BUN/Creatinine Ratio 28.3 H, Glucose 125 H, Calcium 8.5, Total Bilirubin 0.80, AST 50 H, ALT 84 H, Alkaline Phosphatase 84, Total Protein 6.5, Albumin 1.5 L, Globulin 5.0 H, Albumin/Globulin Ratio 0.3 L Micro: Microbiology 01/18/21 06:45 Aspirate - Nose Gram Stain - Final 01/18/21 06:45 Aspirate - Nose Nasopharyngeal Culture - Final Staphylococcus aureus Gram positive mely 01/17/21 08:20 Sputum, Induced/Lukens Gram Stain - Final 01/17/21 08:20 Sputum, Induced/Lukens Respiratory Culture - Final Mixed normal respiratory solange. No Streptococcus pneumoniae, beta-hemolytic Streptococcus or Staphylococcus aureus isolated. 01/11/21 08:35 Blood Culture (Wb) - Left Hand Blood Culture - Final No growth in 5 days. 01/11/21 08:20 Blood Culture (Wb) - Anticubital Left Blood Culture - Final No growth in 5 days. 01/11/21 08:30 Nasal Secretion SARS-CoV-2 Antigen (Rapid) - Final SARS-CoV-2 (COVID 19) ABG Data ABG results: ABG 01/22/21 04:40 Specimen Type ART Sample Site L Radial pH 7.39 Bicarbonate Actual 26.8 H Total CO2 28 Base Excess 2 O2 Saturation 89 L O2 % 60 ABG pCO2 43.8 ABG pO2 57 L Rohit Test N/A Respiration Rate 12 O2 Delivery Device Adult Vent Vent Mode BiLevel Clinical Comments PHIGH 28 THIGH4.5 Physical Exam Const no apparent distress General Appearance: intubated and patient mechanically ventilated HEENT normocephalic and head/scalp atraumatic Mouth: endotracheal tube in place and OG tube in place Eyes PERRL and conjunctivae normal Neck supple General: trachea midline Chest inspection of chest normal Resp Auscultation: rhonchi and diminished lung sounds; Negative for rales or wheezes Cardio regular rate, regular rhythm, S1 normal heart sound and S2 normal heart sound GI normal to inspection, nondistended, normoactive bowel sounds Extremity no clubbing, cyanosis or edema Skin no rashes or lesions noted Neuro Sensorium / Orientation: sedated on vent Charges/Coding Multi Select Codes Hospitalists' Procedures Procedures: 80239 Critial Care 1st Hr
[2021-01-22] MEDS: Acetaminophen 650 MG/20 ML UDC GT ×4 (05:36→20:43)
[2021-01-22] MEDS: Polyethylene Glycol 3350 17 GM PACKET GT (05:36)
[2021-01-22] MEDS: Furosemide 40 MG/4 ML Vial IV (06:42)
[2021-01-22] MEDS: 0.9% Saline Lock 10 ML Syringe IV (06:42)
--- NOTE | 2021-01-22 07:10 | PCM.PN.HOSP ---
Subjective Subjective Patient seen remains on the vent with increasing oxygen demand. Currently on FiO2 of 85% Objective Data Objective Data Vital Signs: Vital Signs Temp Pulse Resp BP Pulse Ox 99 F 92 14 130/82 H 90 01/22/21 04:00 01/22/21 06:00 01/22/21 06:00 01/22/21 06:00 01/22/21 06:00 Oxygen Flow Rate (L/min) 15 Oxygen Delivery Method Mechanical Ventilator Weight: 117 kg Body Mass Index (BMI) 78.4 Intake & Output: Intake and Output for Last 24 Hours 01/20/21 01/21/21 01/22/21 23:59 23:59 23:59 Intake Total 967.77 / 1189.57 3566.44 / 3588.04 193.91 / 193.91 Output Total 1100 / 1300 1150 / 1150 150 / 150 Balance -132.23 / -110.43 2416.44 / 2438.04 43.91 / 43.91 Lab / Micro Data Result Diagrams: 01/22/21 03:10 01/22/21 03:10 Labs: Laboratory Results - last 24 hr 01/21/21 06:20: MRSA (PCR) Negative 01/22/21 03:10: WBC 13.6 H, RBC 4.15 L, Hgb 12.9 L, Hct 39.4 L, MCV 94.9 H, MCH 31.1, MCHC 32.7, RDW Std Deviation 48.4 H, RDW Coeff of Anusha 13.7, Plt Count 577 H, MPV 9.7, Immature Gran % (Auto) 1.200 H, Neut % (Auto) 90.5 H, Lymph % (Auto) 3.7 L, [place] % (Auto) 3.0, Eos % (Auto) 1.5, Baso % (Auto) 0.1, Absolute Neuts (auto) 12.3 H, Absolute Lymphs (auto) 0.50 L, Nucleated RBC % 0 01/22/21 03:10: Sodium 139, Potassium 3.7, Chloride 103, Carbon Dioxide 28.0, Anion Gap 8, BUN 47 H, Creatinine 1.66 H, Estim Creat Clear Calc 49.99, Est GFR (MDRD) Af Amer 54 L, Est GFR (MDRD) Non-Af 45 L, BUN/Creatinine Ratio 28.3 H, Glucose 125 H, Calcium 8.5, Total Bilirubin 0.80, AST 50 H, ALT 84 H, Alkaline Phosphatase 84, Total Protein 6.5, Albumin 1.5 L, Globulin 5.0 H, Albumin/Globulin Ratio 0.3 L Micro: Microbiology 01/18/21 06:45 Aspirate - Nose Gram Stain - Final 01/18/21 06:45 Aspirate - Nose Nasopharyngeal Culture - Final Staphylococcus aureus Gram positive mely 01/17/21 08:20 Sputum, Induced/Lukens Gram Stain - Final 01/17/21 08:20 Sputum, Induced/Lukens Respiratory Culture - Final Mixed normal respiratory solange. No Streptococcus pneumoniae, beta-hemolytic Streptococcus or Staphylococcus aureus isolated. 01/11/21 08:35 Blood Culture (Wb) - Left Hand Blood Culture - Final No growth in 5 days. 01/11/21 08:20 Blood Culture (Wb) - Anticubital Left Blood Culture - Final No growth in 5 days. 01/11/21 08:30 Nasal Secretion SARS-CoV-2 Antigen (Rapid) - Final SARS-CoV-2 (COVID 19) ABG Data ABG results: ABG 01/22/21 04:40 Specimen Type ART Sample Site L Radial pH 7.39 Bicarbonate Actual 26.8 H Total CO2 28 Base Excess 2 O2 Saturation 89 L O2 % 60 ABG pCO2 43.8 ABG pO2 57 L Rohit Test N/A Respiration Rate 12 O2 Delivery Device Adult Vent Vent Mode BiLevel Clinical Comments PHIGH 28 THIGH4.5 Physical Exam Narrative GENERAL: Sedated on the vent HEENT: Atraumatic; EYES; Anicteric, Normal Conjunctiva NECK; supple, normal thyroid, RESPIRATORY: Diminished to auscultation CARDIOVASCULAR: Regular S1 S2, GI: soft, normoactive bowel sounds, : No Renal angle tenderness; EXTREMITIES: No edema, no clubbing, MUSCULOSKELETAL: no muscle waisting NEURO: Sedated on the vent SKIN: No Rash PSYCH; sedated on the vent Assessment & Plan Assessment/Plan (1) Pneumonia due to COVID-19 virus: (2) Acute respiratory failure with hypoxia: PLAN: Patient is a 65-year-old gentleman admitted with acute hypoxic respiratory failure secondary to Covid pneumonia. Was intubated on 01/17/2021. 1. Acute hypoxic respiratory failure ?Secondary to SARS-CoV-2 pneumonia. Patient has completed a course of remdesivir currently remains on Decadron and baricitinib. Patient was intubated on 01/17/2021. He apparently self extubated on the morning of 01/20/2021 and had to be reintubated. -01/21/2021;Patient seen still remains on the vent. Vent settings as per pulmonary medicine. WBC count slightly elevated at 14 -01/22/2021; patient seen remains on the vent with increasing oxygen demand. Currently on FiO2 of 85%. Sputum cultures came back positive for Staphylococcus aureus ;Gram positive mely 2. Acute kidney injury ?Potential nephrotoxic medications held -01/22/2021; creatinine at 1.66 3. Essential hypertension ?Patient blood pressure on hold 4. Depression with anxiety ?Patient was Paxil prior to intubation 5. DVT prophylaxis ?Lovenox Charges/Coding Visit Charges Inpatient E&M: 46964 Subs Hosp L3
[2021-01-22] MEDS: Senna/Docusate Sodium 1 Tablet 2 TABLET GT ×2 (10:11→20:42)
[2021-01-22] MEDS: Paroxetine 20 MG Tablet 40 MG GT (10:11)
[2021-01-22] MEDS: Enoxaparin 40 MG/0.4 ML Syringe SC ×2 (10:11→20:42)
[2021-01-22] MEDS: Chlorhexidine 15 ML PO ×2 (10:11→20:43)
[2021-01-22] MEDS: CHLORHEXIDINE GLUC 2% CLOTH 1 EACH TOWELETTE TOPICAL (10:11)
[2021-01-22] MEDS: Magnesium Citrate 300 ML GT (12:12)
--- NOTE | 2021-01-22 13:03 | CHAPLAIN ---
Type of Pastoral Visit ___ Initial Visit ___ Follow-up Visit ___ On-call Visit ___ General Patient Visit ___ Spiritual Assessment ___ Family Conference ___ Bereavement ___ Rapid Response ___ Code Blue _x__ Other (describe below) Pastoral Care Referral From ___ Patient ___ Family ___ Nurse ___ Physician ___ Insurance Loss Adjuster ___ Emergency Response Officer _x__ Other (describe below) Sacrament/Intervention _x__ Active listening ___ Anointing ___ Congregation ___ Bereavement ___ Communion ___ Yuki exploration ___ ___ Life review ___ Prayer ___ Reconciliation ___ Sacrament of Sick ___ Supportive presence ___ Wedding ___ Other (describe below) Pastoral Comments patient has been a spiritual care referral but has been intubated and thus unable to communicate; this air conditioning engineer called spouse of patient and offered support; spouse states that there has been some hopeful news in the last day and we just want to keep it going and just asking for prayers for him; spouse states that she has good support and I'm keeping myself busy; acknowledged appreciation for prayers
[2021-01-22] MEDS: Vital AF 1.2 Cal Liquid 1,000 ML 70 ML GT (14:01)
[2021-01-23] VITALS (34 sets, daily range): BP systolic 104–157; BP diastolic 63–92; PULSE 68–101; RESP 12–174; TEMP 36.1–37.2; O2SAT 70–97
[2021-01-23] MEDS: Bisacodyl 10 MG Suppository RC (00:42)
[2021-01-23] MEDS: Propofol 10MG/Ml 1,000 MG/100 ML Bottle 14.1 MG CONT INF ×4 (01:06→15:08)
[2021-01-23] MEDS: Acetaminophen 650 MG/20 ML UDC GT ×4 (04:02→21:28)
[2021-01-23 04:18] LABS: Absolute Neutrophil Count 12.8 X10^3/uL (2.0-7.7); Basophil# 0.02 X10^3/uL; Basophil% 0.1 % (0-1); Eosinophil# 0.21 X10^3/uL; Eosinophils% 1.5 % (0-5); Hematocrit 38.8 % (40-54); Hemoglobin 12.8 g/dL (13.0-16.5); Lymphocyte % 3.5 % (19-41); Mean Corpuscular Hgb 31.5 pg (27.0-32.0); Mean Corpuscular Volume 95.6 fL (80-94); Mean Platelet Vol. 9.9 fl (6.2-12.0); Monocyte# 0.45 X10^3/uL; Monocyte% 3.2 % (0-10); NRBC Flagged by Analyzer 0 % (0-5); Neutrophil # 12.83 X10^3/uL (2.7-7.7); Neutrophil % 90.3 % (47-70); POSITIVE DIFFERENTIAL YES; Platelet Count 638 K/mm3 (150-450); RBC Distribution Width CV 14.2 % (11.6-14.6); RBC Distribution Width SD 50.3 fl (35.1-43.9); Red Blood Count 4.06 M/mm3 (4.6-6.2); White Blood Count 14.2 K/mm3 (4.4-11.0)
[2021-01-23 04:31] LABS: Differential Indicated SCAN CRITERIA MET
[2021-01-23 05:16] LABS: ALB/GLOB Ratio 0.3 RATIO (0.9-2.4); AST(SGOT) 72 U/L (15-37); Alanine Aminotransfer ALT/SGPT 109 U/L (16-61); Albumin, Serum 1.4 g/dL (3.2-5.0); Alkaline Phosphatase 98 U/L (45-117); Anion Gap 8 (5-15); BUN 69 mg/dL (7-18); BUN/Creat Ratio 25.1 RATIO (10-20); Calcium,Total 9.1 mg/dL (8.5-10.1); Chloride 103 mmol/L (98-107); Creatinine, Serum 2.75 mg/dL (0.70-1.30); EST Glomerular Filtration Rate 25 mL/min (>60); Est Glom Filt Rate - Afr Amer 30 mL/min (>60); Estimated Creatinine Clearance 30.18 ml/min; Globulin 5.2 g/dL (2.2-4.2); Glucose 145 mg/dL (74-106); Potassium 3.9 mmol/L (3.5-5.1); Protein, Total 6.6 g/dL (6.4-8.2); Sodium Level 139 mmol/L (136-145)
--- NOTE | 2021-01-23 05:34 | PN.CC_ITS ---
Assessment & Plan Assessment/Plan (1) Pneumonia due to COVID-19 virus: PLAN: RECOMMENDATIONS: 1. Titrate P high and FiO2 for saturations greater than 90%. 2. Continue baricitinib to complete treatment course. 3. Continue antimicrobials to complete 7-day treatment course. 4. Obtain nephrology consultation, given CASSANDRA. 5. Continue Lovenox twice daily as ordered. 6. Continue appropriate GI prophylaxis. 7. Continue tube feeds as tolerated. IMPRESSIONS: 1. Acute hypoxemic respiratory failure secondary to ARDS due to COVID-19 pneumonia Although noninvasive positive pressure ventilatory support was initially utilized in attempt to stabilize the patient, he continued to decompensate clinically and required intubation on January 17. The patient will be continued on APRV mode of mechanical ventilation with P high and FiO2 weaned as tolerated to maintain saturations at or above 90%. The patient has already completed a treatment course of remdesivir and Decadron. Baricitinib will be continued to complete treatment course. Lovenox will be continued as ordered. In addition to the aforementioned, the patient's sputum culture was also positive for MSSA, for which the patient will be continued on antimicrobials to complete a 7-day treatment course. We are unable to provide any additional diuretic therapy due to the development of CASSANDRA. 2. Acute kidney injury Likely prerenal in etiology. Given increasing creatinine and decreasing urine output, will obtain nephrology consultation today. 3. Hypertension/obesity Complicates care, management, recovery and prognosis. Resume antihypertensives once extubated. Continue supportive measures including tube feeds as tolerated. TIME: 34 minutes of critical care time, independent of procedures, was spent addressing the patient's acute hypoxemic respiratory failure secondary to COVID- 19 pneumonia, acute kidney injury, hypertension, review of all data and collaboration with care team. ([id number]) Subjective Subjective The patient was seen and examined at the bedside this morning. Events from the last 24 hours have been reviewed. The patient is currently being maintained on APRV with a P high of 28 and FiO2 of 55%. The patient is being maintained on fentanyl and propofol for sedation. He is documented to be overall net even for the hospital admission. The patient remains on antimicrobials, lovenox and b aricitinib. Urine output is decreasing. Creatinine has increased to 2.75. Arterial blood gas from this morning is appropriate. Objective Data Objective Data The patient's most recent lab work, culture data and imaging studies have all been personally reviewed. Rapid coronavirus antigen testing was positive on January 09. Sputum culture was positive for MSSA. Vital Signs: Vital Signs Temp Pulse Resp BP Pulse Ox 99 F 96 16 130/86 H 92 01/23/21 04:00 01/23/21 05:25 01/23/21 05:25 01/23/21 05:00 01/23/21 05:25 Oxygen Flow Rate (L/min) 15 Oxygen Delivery Method Mechanical Ventilator Weight: 121 kg Body Mass Index (BMI) 78.4 Intake & Output: Intake and Output for Last 24 Hours 01/21/21 01/22/21 01/23/21 23:59 23:59 23:59 Intake Total 3566.44 / 3588.04 1557.41 / 1779.01 379.24 / 379.24 Output Total 1150 / 1150 750 / 1050 300 / 300 Balance 2416.44 / 2438.04 807.41 / 729.01 79.24 / 79.24 Lab / Micro Data Attestation: I reviewed the patient's lab results. Result Diagrams: 01/23/21 03:55 01/23/21 03:55 Labs: Laboratory Results - last 24 hr 01/23/21 03:55: WBC 14.2 H, RBC 4.06 L, Hgb 12.8 L, Hct 38.8 L, MCV 95.6 H, MCH 31.5, MCHC 33.0, RDW Std Deviation 50.3 H, RDW Coeff of Anusha 14.2, Plt Count 638 H, MPV 9.9, Immature Gran % (Auto) 1.400 H, Neut % (Auto) 90.3 H, Lymph % (Auto) 3.5 L, [place] % (Auto) 3.2, Eos % (Auto) 1.5, Baso % (Auto) 0.1, Absolute Neuts (auto) 12.8 H, Absolute Lymphs (auto) 0.50 L, Nucleated RBC % 0 01/23/21 03:55: Sodium 139, Potassium 3.9, Chloride 103, Carbon Dioxide 28.0, Anion Gap 8, BUN 69 H, Creatinine 2.75 H, Estim Creat Clear Calc 30.18, Est GFR (MDRD) Af Amer 30 L, Est GFR (MDRD) Non-Af 25 L, BUN/Creatinine Ratio 25.1 H, Glucose 145 H, Calcium 9.1, Total Bilirubin 0.80, AST 72 H, ALT 109 H, Alkaline Phosphatase 98, Total Protein 6.6, Albumin 1.4 L, Globulin 5.2 H, Albumin/Globulin Ratio 0.3 L Micro: Microbiology 01/18/21 06:45 Aspirate - Nose Gram Stain - Final 01/18/21 06:45 Aspirate - Nose Nasopharyngeal Culture - Final Staphylococcus aureus Gram positive mely 01/17/21 08:20 Sputum, Induced/Lukens Gram Stain - Final 01/17/21 08:20 Sputum, Induced/Lukens Respiratory Culture - Final Mixed normal respiratory solange. No Streptococcus pneumoniae, beta-hemolytic Streptococcus or Staphylococcus aureus isolated. 01/11/21 08:35 Blood Culture (Wb) - Left Hand Blood Culture - Final No growth in 5 days. 01/11/21 08:20 Blood Culture (Wb) - Anticubital Left Blood Culture - Final No growth in 5 days. 01/11/21 08:30 Nasal Secretion SARS-CoV-2 Antigen (Rapid) - Final SARS-CoV-2 (COVID 19) Physical Exam Const no apparent distress General Appearance: intubated and patient mechanically ventilated HEENT normocephalic and head/scalp atraumatic Mouth: endotracheal tube in place and OG tube in place Eyes PERRL and conjunctivae normal Neck supple General: trachea midline Chest inspection of chest normal Resp Auscultation: rhonchi and diminished lung sounds; Negative for rales or wheezes Cardio regular rate, regular rhythm, S1 normal heart sound and S2 normal heart sound GI normal to inspection, nondistended, normoactive bowel sounds Extremity no clubbing, cyanosis or edema Skin no rashes or lesions noted Neuro Sensorium / Orientation: sedated on vent Charges/Coding Procedures Hospitalists Procedures: 52385 Critial Care 1st Hr
[2021-01-23 05:51] LABS: Base Excess 2 mmol/L (-2 to +2); Bicarbonate 27.3 mmol/L (22-26); Blood Gas Specimen Type ART; FI02 55; Mode BiLevel; O2 Delivery Device Adult Vent; PO2 60 mmHG (75-100); RR 12; SITE L Radial; SO2 90 % (95-99); Total Carbon Dioxide 29 mmol/L; pCO2 46.3 mmHg (35-45); pH 7.38 (7.35-7.45)
--- NOTE | 2021-01-23 06:00 | RAD_ITS ---
INDICATION: Constipation EXAMINATION/TECHNIQUE: X-RAY - XR Abdomen 1 View COMPARISON: 01/20/2021 FINDINGS: Nasogastric tube visualized superimposed over the stomach. BOWEL GAS PATTERN: Abundance of stool visualized in the bowel loops, no significant bowel distention to suggest obstruction. FREE AIR: Not assessed on a single supine view. ORGANOMEGALY: Not seen. CALCIFICATIONS: No abnormal calcifications observed. LOWER CHEST: No acute pathology. BONES AND SOFT TISSUES: No acute pathology. RAD/Abdomen Single View (Portable) IMPRESSION: Abundance of stool in the bowel, no significant bowel distention to suggest obstruction. Electronically Signed: Ganga Shelley MD at 8:07 EDT Tel , Service support ,
--- NOTE | 2021-01-23 07:12 | PCM.PN.HOSP ---
Subjective Subjective Patient seen remains on the vent, with no significant change in clinical condition Objective Data Objective Data Vital Signs: Vital Signs Temp Pulse Resp BP Pulse Ox 99 F 86 12 131/81 H 92 01/23/21 04:00 01/23/21 07:07 01/23/21 07:07 01/23/21 06:00 01/23/21 07:07 Oxygen Flow Rate (L/min) 15 Oxygen Delivery Method Mechanical Ventilator Weight: 121 kg Body Mass Index (BMI) 78.4 Intake & Output: Intake and Output for Last 24 Hours 01/21/21 01/22/21 01/23/21 23:59 23:59 23:59 Intake Total 3566.44 / 3588.04 1557.41 / 1779.01 525.84 / 525.84 Output Total 1150 / 1150 750 / 1050 350 / 350 Balance 2416.44 / 2438.04 807.41 / 729.01 175.84 / 175.84 Lab / Micro Data Result Diagrams: 01/23/21 03:55 01/23/21 03:55 Labs: Laboratory Results - last 24 hr 01/23/21 03:55: WBC 14.2 H, RBC 4.06 L, Hgb 12.8 L, Hct 38.8 L, MCV 95.6 H, MCH 31.5, MCHC 33.0, RDW Std Deviation 50.3 H, RDW Coeff of Anusha 14.2, Plt Count 638 H, MPV 9.9, Immature Gran % (Auto) 1.400 H, Neut % (Auto) 90.3 H, Lymph % (Auto) 3.5 L, [place] % (Auto) 3.2, Eos % (Auto) 1.5, Baso % (Auto) 0.1, Absolute Neuts (auto) 12.8 H, Absolute Lymphs (auto) 0.50 L, Nucleated RBC % 0 01/23/21 03:55: Sodium 139, Potassium 3.9, Chloride 103, Carbon Dioxide 28.0, Anion Gap 8, BUN 69 H, Creatinine 2.75 H, Estim Creat Clear Calc 30.18, Est GFR (MDRD) Af Amer 30 L, Est GFR (MDRD) Non-Af 25 L, BUN/Creatinine Ratio 25.1 H, Glucose 145 H, Calcium 9.1, Total Bilirubin 0.80, AST 72 H, ALT 109 H, Alkaline Phosphatase 98, Total Protein 6.6, Albumin 1.4 L, Globulin 5.2 H, Albumin/Globulin Ratio 0.3 L Micro: Microbiology 01/18/21 06:45 Aspirate - Nose Gram Stain - Final 01/18/21 06:45 Aspirate - Nose Nasopharyngeal Culture - Final Staphylococcus aureus Gram positive mely 01/17/21 08:20 Sputum, Induced/Lukens Gram Stain - Final 01/17/21 08:20 Sputum, Induced/Lukens Respiratory Culture - Final Mixed normal respiratory solange. No Streptococcus pneumoniae, beta-hemolytic Streptococcus or Staphylococcus aureus isolated. 01/11/21 08:35 Blood Culture (Wb) - Left Hand Blood Culture - Final No growth in 5 days. 01/11/21 08:20 Blood Culture (Wb) - Anticubital Left Blood Culture - Final No growth in 5 days. 01/11/21 08:30 Nasal Secretion SARS-CoV-2 Antigen (Rapid) - Final SARS-CoV-2 (COVID 19) ABG Data ABG results: ABG 01/23/21 05:45 Specimen Type ART Sample Site L Radial pH 7.38 Bicarbonate Actual 27.3 H Total CO2 29 Base Excess 2 O2 Saturation 90 L O2 % 55 ABG pCO2 46.3 H ABG pO2 60 L Rohit Test N/A Respiration Rate 12 O2 Delivery Device Adult Vent Vent Mode BiLevel Clinical Comments APRV PHIGH 28 Physical Exam Narrative GENERAL: Sedated on the vent HEENT: Atraumatic; EYES; Anicteric, Normal Conjunctiva NECK; supple, normal thyroid, RESPIRATORY: Diminished to auscultation CARDIOVASCULAR: Regular S1 S2, GI: soft, normoactive bowel sounds, : No Renal angle tenderness; EXTREMITIES: No edema, no clubbing, MUSCULOSKELETAL: no muscle waisting NEURO: Sedated on the vent SKIN: No Rash PSYCH; sedated on the vent Assessment & Plan Assessment/Plan (1) Pneumonia due to COVID-19 virus: (2) Acute respiratory failure with hypoxia: PLAN: Patient is a 65-year-old gentleman admitted with acute hypoxic respiratory failure secondary to Covid pneumonia. Was intubated on 01/17/2021. 1. Acute hypoxic respiratory failure ?Secondary to SARS-CoV-2 pneumonia. Patient has completed a course of remdesivir currently remains on Decadron and baricitinib. Patient was intubated on 01/17/2021. He apparently self extubated on the morning of 01/20/2021 and had to be reintubated. -01/21/2021;Patient seen still remains on the vent. Vent settings as per pulmonary medicine. WBC count slightly elevated at 14 -01/22/2021; patient seen remains on the vent with increasing oxygen demand. Currently on FiO2 of 85%. Sputum cultures came back positive for Staphylococcus aureus ;Gram positive mely -01/23/2021; patient remains sedated on the vent with no significant change in clinical condition 2. Acute kidney injury ?Potential nephrotoxic medications held -01/22/2021; creatinine at 1.66 3. Essential hypertension ?Patient blood pressure on hold 4. Depression with anxiety ?Patient was Paxil prior to intubation 5. DVT prophylaxis ?Lovenox Charges/Coding Visit Charges Inpatient E&M: 69896 [facility] Hosp L3
[2021-01-23] MEDS: Vital AF 1.2 Cal Liquid 1,000 ML 70 ML GT (08:35)
[2021-01-23] MEDS: Chlorhexidine 15 ML PO ×2 (08:41→21:28)
[2021-01-23] MEDS: Enoxaparin 40 MG/0.4 ML Syringe SC ×2 (08:43→21:29)
[2021-01-23] MEDS: Senna/Docusate Sodium 1 Tablet 2 TABLET GT ×2 (08:45→21:28)
[2021-01-23] MEDS: Paroxetine 20 MG Tablet 40 MG GT (08:47)
[2021-01-23] MEDS: Polyethylene Glycol 3350 17 GM PACKET GT (09:10)
[2021-01-23] MEDS: CHLORHEXIDINE GLUC 2% CLOTH 1 EACH TOWELETTE TOPICAL (09:11)
--- NOTE | 2021-01-23 10:22 | PCM.PN.ID ---
Physical Exam Narrative On vent, no fever Const no apparent distress Resp Effort and Inspection: mechanically ventilated Auscultation: diminished lung sounds Cardio regular rate and regular rhythm GI normal to inspection, nondistended, normoactive bowel sounds Skin no rashes or lesions noted ID ID: Route of nutrition/ use of supplements: [] Nutritional Intake: [] IV Site: [] Sanches Catheter: [] Assessment & Plan Assessment/Plan (1) Pneumonia due to COVID-19 virus: PLAN: Sx started around 01/01, but he reports could be as early at 12/28/10. and son also sick. Unvaccinated. Now out of iso. Recommend vaccine once discharged. Completed dex. Will stop baricitinib due to worsening CASSANDRA. On vent. On zosyn. Stopped vanc. Decrease zosyn to q12h. ? Nasal cx with mssa, GPR. Will follow (2) Acute respiratory failure with hypoxia: (3) CASSANDRA (acute kidney injury):
--- NOTE | 2021-01-23 10:25 | RAD_ITS ---
STUDY: X-RAY - ABDOMEN/PELVIS REASON FOR EXAM: Male, 65 years old. og placement TECHNIQUE: Single AP view of the abdomen / pelvis. COMPARISON: None. FINDINGS: No demonstrated enteric tube. EKG leads project over the chest/abdomen. Multilobar pulmonary infiltrates partially visualized. There is an unremarkable bowel gas pattern. There is no demonstrated free abdominal air. The visualized liver, spleen and kidneys are grossly normal in size and morphology. Normal soft tissue structures. There are diffuse degenerative changes of the visualized lumbar spine. RAD/Abdomen Single View (Portable) IMPRESSION: No demonstrated enteric tube. Electronically Signed: Frankie Ashby MD ([place]) at 10:53 EDT , Service support ,
--- NOTE | 2021-01-23 10:30 | RAD_ITS ---
STUDY: X-RAY - ABDOMEN/PELVIS REASON FOR EXAM: Male, 65 years old. OG PLACEMENT #2 TECHNIQUE: Single AP view of the abdomen / pelvis. COMPARISON: Earlier today FINDINGS: Multilobar pulmonary infiltrates partially visualized. Esophagogastric tube extends to the left upper quadrant/stomach. There is an unremarkable bowel gas pattern. There is no demonstrated free abdominal air. The visualized liver, spleen and kidneys are grossly normal in size and morphology. Normal soft tissue structures. There are diffuse degenerative changes of the visualized lumbar spine. RAD/Abdomen Single View (Portable) IMPRESSION: Esophagogastric tube extends to the stomach. Electronically Signed: Frankie Ashby MD ([place]) at 10:54 EDT , Service support ,
--- NOTE | 2021-01-23 14:29 | PCM.CONS.R ---
Assessment & Plan Assessment/Plan (1) CASSANDRA (acute kidney injury): PLAN: Baseline creatinine is around 1.0-1.1. he has had creatinine fluctuations over the last few days. Creatinine worsening. WBC is higher. Blood pressure is acceptable. Cooley is in, chances of obstruction are low. Acute renal failure is likely ATN in the setting of Covid pneumonia. No acute indications for dialysis today. Urine output is still present. Electrolytes are acceptable. Discussed with ICU attending Dr. Yadav HPI Consult Data Date of Consult: 01/23/21 HPI Narrative HPI Narrative: HERIBERTO LOMELI, is a 65 M who presents The hospital on 09 January with COVID pneumonia. He was initially intubated, she self extubated himself about 3 days ago, was reintubated due to hypoxia. Currently remains on ventilator. He was treated with Remdisivir. Currently on steroids and barcitinib. Nephrology consult to due to acute renal failure. It seems like baseline creatinine was around 1.0-1.1. Creatinine today is 2.5. Urine output is borderline, he has made about 2 50 cc of urine since this morning. WBC is slowly increasing. Currently on antibiotic coverage for secondary pneumonia. [facility] Medical History Hypertension Home Medications hydrochlorothiazide 12.5 mg PO DAILY 11/28/15 [History Last Taken Unknown] oxycodone-acetaminophen 1 - 2 tab PO Q4H PRN PRN #12 tab 11/28/15 [Rx Last Taken Unknown] paroxetine HCl 20 mg PO QHS 11/28/15 [History Last Taken Unknown] ramipril [Altace] 10 mg PO DAILY 11/28/15 [History Last Taken Unknown] tamsulosin 0.4 mg PO DAILY 14 Days capsule 11/28/15 [Rx Last Taken Unknown] Allergy/AdvReac Type Severity Reaction Status Date / Time No Known Allergies Allergy Verified 11/28/15 20:22 Family History unable to obtain Surgical History no surgical history Social History Smoking Status: Current some day smoker tobacco type: cigars ROS ROS Narrative Unable to be obtained due to intubated status Physical Exam Narrative sedated no obvious distress no pallor no icterus no JVD s1s2 no murmurs lungs clear abdomen soft no organomegaly no edema no cyanosis cooley + Lab / Micro Data Result Diagrams: 01/23/21 03:55 01/23/21 03:55 Labs: Laboratory Results - last 24 hr 01/23/21 03:55: WBC 14.2 H, RBC 4.06 L, Hgb 12.8 L, Hct 38.8 L, MCV 95.6 H, MCH 31.5, MCHC 33.0, RDW Std Deviation 50.3 H, RDW Coeff of Anusha 14.2, Plt Count 638 H, MPV 9.9, Immature Gran % (Auto) 1.400 H, Neut % (Auto) 90.3 H, Lymph % (Auto) 3.5 L, [place] % (Auto) 3.2, Eos % (Auto) 1.5, Baso % (Auto) 0.1, Absolute Neuts (auto) 12.8 H, Absolute Lymphs (auto) 0.50 L, Nucleated RBC % 0 01/23/21 03:55: Sodium 139, Potassium 3.9, Chloride 103, Carbon Dioxide 28.0, Anion Gap 8, BUN 69 H, Creatinine 2.75 H, Estim Creat Clear Calc 30.18, Est GFR (MDRD) Af Amer 30 L, Est GFR (MDRD) Non-Af 25 L, BUN/Creatinine Ratio 25.1 H, Glucose 145 H, Calcium 9.1, Total Bilirubin 0.80, AST 72 H, ALT 109 H, Alkaline Phosphatase 98, Total Protein 6.6, Albumin 1.4 L, Globulin 5.2 H, Albumin/Globulin Ratio 0.3 L ABG Data ABG results: ABG 01/23/21 05:45 Specimen Type ART Sample Site L Radial pH 7.38 Bicarbonate Actual 27.3 H Total CO2 29 Base Excess 2 O2 Saturation 90 L O2 % 55 ABG pCO2 46.3 H ABG pO2 60 L Rohit Test N/A Respiration Rate 12 O2 Delivery Device Adult Vent Vent Mode BiLevel Clinical Comments APRV PHIGH 28 Radiology Impression KUB X-Ray 01/23/21 06:00 IMPRESSION: Abundance of stool in the bowel, no significant bowel distention to suggest obstruction. Electronically Signed: Ganga Shelley MD at 8:07 EDT Tel , Service support , KUB X-Ray 01/23/21 10:25 IMPRESSION: No demonstrated enteric tube. Electronically Signed: Frankie Ashby MD ([place]) at 10:53 EDT , Service support , KUB X-Ray 01/23/21 10:30 IMPRESSION: Esophagogastric tube extends to the stomach. Electronically Signed: Frankie Ashby MD (Brooks) at 10:54 EDT , Service support ,
[2021-01-23] MEDS: Propofol 10MG/Ml 1,000 MG/100 ML Bottle 10.5 MG CONT INF (21:34)
[2021-01-24] VITALS (38 sets, daily range): BP systolic 125–186; BP diastolic 52–105; PULSE 78–122; RESP 12–38; TEMP 36.1–37.7; O2SAT 88–97
[2021-01-24] MEDS: Acetaminophen 650 MG/20 ML UDC GT ×2 (03:13→08:12)
[2021-01-24 03:52] LABS: Absolute Lymphocyte Count 0.52 X10^3/uL (0.83-4.51); Absolute Neutrophil Count 10.9 X10^3/uL (2.0-7.7); Basophil# 0.03 X10^3/uL; Basophil% 0.2 % (0-1); Eosinophil# 0.14 X10^3/uL; Eosinophils% 1.1 % (0-5); Hematocrit 36.8 % (40-54); Hemoglobin 12.1 g/dL (13.0-16.5); Lymphocyte # 0.52 X10^3/ul (0.83-4.51); Lymphocyte % 4.2 % (19-41); Mean Corp Hgb Conc 32.9 g/dL (32-36); Mean Corpuscular Hgb 31.4 pg (27.0-32.0); Mean Corpuscular Volume 95.6 fL (80-94); Mean Platelet Vol. 9.8 fl (6.2-12.0); Monocyte# 0.53 X10^3/uL; Monocyte% 4.3 % (0-10); NRBC Flagged by Analyzer 0 % (0-5); Neutrophil % 88.7 % (47-70); POSITIVE DIFFERENTIAL YES; Platelet Count 632 K/mm3 (150-450); RBC Distribution Width CV 14.3 % (11.6-14.6); Red Blood Count 3.85 M/mm3 (4.6-6.2); White Blood Count 12.3 K/mm3 (4.4-11.0)
[2021-01-24 03:57] LABS: Differential Indicated SCAN CRITERIA MET
[2021-01-24 04:16] LABS: ALB/GLOB Ratio 0.2 RATIO (0.9-2.4); AST(SGOT) 69 U/L (15-37); Alanine Aminotransfer ALT/SGPT 110 U/L (16-61); Albumin, Serum 1.3 g/dL (3.2-5.0); Alkaline Phosphatase 92 U/L (45-117); Anion Gap 6 (5-15); BUN 84 mg/dL (7-18); BUN/Creat Ratio 24.6 RATIO (10-20); Calcium,Total 9.2 mg/dL (8.5-10.1); Chloride 104 mmol/L (98-107); Creatinine, Serum 3.42 mg/dL (0.70-1.30); EST Glomerular Filtration Rate 19 mL/min (>60); Est Glom Filt Rate - Afr Amer 23 mL/min (>60); Estimated Creatinine Clearance 24.27 ml/min; Globulin 5.2 g/dL (2.2-4.2); Glucose 95 mg/dL (74-106); Potassium 4.6 mmol/L (3.5-5.1); Protein, Total 6.5 g/dL (6.4-8.2); Sodium Level 141 mmol/L (136-145)
[2021-01-24] MEDS: Propofol 10MG/Ml 1,000 MG/100 ML Bottle 14.1 MG CONT INF ×4 (05:00→23:04)
[2021-01-24] MEDS: CHLORHEXIDINE GLUC 2% CLOTH 1 EACH TOWELETTE TOPICAL (05:08)
[2021-01-24] MEDS: Vital AF 1.2 Cal Liquid 1,000 ML 20 ML GT (05:12)
--- NOTE | 2021-01-24 05:47 | PN.CC_ITS ---
Assessment & Plan Assessment/Plan (1) Pneumonia due to COVID-19 virus: PLAN: RECOMMENDATIONS: 1. Titrate P high and FiO2 for saturations greater than 90%. 2. Continue antimicrobials to complete 7-day treatment course. 3. Continue Lovenox twice daily as ordered. 4. Continue appropriate GI prophylaxis. 5. Continue tube feeds as tolerated. 6. Aggressive bowel regimen. 7. Nephrology following to assist with possible future dialysis needs. IMPRESSIONS: 1. Acute hypoxemic respiratory failure secondary to ARDS due to COVID-19 pneumonia Although noninvasive positive pressure ventilatory support was initially utilized in attempt to stabilize the patient, he continued to decompensate clinically and required intubation on January 17. The patient will be continued on APRV mode of mechanical ventilation with P high and FiO2 weaned as tolerated to maintain saturations at or above 90%. The patient has already completed a treatment course of remdesivir and Decadron. Baricitinib ultimately had to be discontinued due to worsening renal insufficiency. Dose adjusted Lovenox will be continued as ordered. Unable to diurese the patient due to underlying renal dysfunction. Continue antimicrobials to complete 7-day treatment course to address underlying MSSA isolated on sputum culture. 2. Acute kidney injury Worsening. Likely prerenal in etiology. Nephrology is currently following to assist with any future hemodialysis needs. 3. Hypertension/obesity Complicates care, management, recovery and prognosis. Resume antihypertensives once extubated. Continue supportive measures including tube feeds as tolerated. TIME: 33 minutes of critical care time, independent of procedures, was spent addressing the patient's acute hypoxemic respiratory failure secondary to COVID- 19 pneumonia, acute kidney injury, hypertension, review of all data and collaboration with care team. ([id number]) Subjective Subjective The patient was seen and examined at the bedside this morning. Events from the last 24 hours have been reviewed. The patient is currently afebrile, hemodyna mically stable and maintaining appropriate oxygen saturations on APRV with a P high of 26 and FiO2 of 70%. The patient has yet to have a bowel movement. He continues to tolerate tube feeds. He is currently documented to be overall net +1 L for the hospitalization. The patient remains sedated on propofol and fentanyl. The patient remains on antimicrobials and prophylactic Lovenox. Arterial blood gas obtained this morning again remains appropriate. Creatinine has increased to 3.42. BUN is elevated 84. The patient's baricitinib had to be discontinued due to worsening renal function. Objective Data Objective Data The patient's most recent lab work, culture data and imaging studies have all been personally reviewed. Rapid coronavirus antigen testing was positive on January 09. Sputum culture was positive for MSSA. Vital Signs: Vital Signs Temp Pulse Resp BP Pulse Ox 97.9 F 89 27 H 144/52 H 91 01/24/21 03:00 01/24/21 05:29 01/24/21 05:29 01/24/21 04:00 01/24/21 05:29 Oxygen Flow Rate (L/min) 15 Oxygen Delivery Method Mechanical Ventilator Weight: 122.5 kg Body Mass Index (BMI) 78.4 Intake & Output: Intake and Output for Last 24 Hours 01/22/21 01/23/21 01/24/21 23:59 23:59 23:59 Intake Total 1557.41 / 1779.01 1809.06 / 1827.06 281.75 / 281.75 Output Total 750 / 1050 850 / 1175 325 / 325 Balance 807.41 / 729.01 959.06 / 652.06 -43.25 / -43.25 Lab / Micro Data Attestation: I reviewed the patient's lab results. Result Diagrams: 01/24/21 03:33 01/24/21 03:33 Labs: Laboratory Results - last 24 hr 01/24/21 03:33: WBC 12.3 H, RBC 3.85 L, Hgb 12.1 L, Hct 36.8 L, MCV 95.6 H, MCH 31.4, MCHC 32.9, RDW Std Deviation 50.0 H, RDW Coeff of Anusha 14.3, Plt Count 632 H, MPV 9.8, Immature Gran % (Auto) 1.500 H, Neut % (Auto) 88.7 H, Lymph % (Auto) 4.2 L, [place] % (Auto) 4.3, Eos % (Auto) 1.1, Baso % (Auto) 0.2, Absolute Neuts (auto) 10.9 H, Absolute Lymphs (auto) 0.52 L, Nucleated RBC % 0 01/24/21 03:33: Sodium 141, Potassium 4.6, Chloride 104, Carbon Dioxide 31.0, Anion Gap 6, BUN 84 H, Creatinine 3.42 H, Estim Creat Clear Calc 24.27, Est GFR (MDRD) Af Amer 23 L, Est GFR (MDRD) Non-Af 19 L, BUN/Creatinine Ratio 24.6 H, Glucose 95, Calcium 9.2, Total Bilirubin 0.90, AST 69 H, ALT 110 H, Alkaline Phosphatase 92, Total Protein 6.5, Albumin 1.3 L, Globulin 5.2 H, Albumin/Globulin Ratio 0.2 L Micro: Microbiology 01/18/21 06:45 Aspirate - Nose Gram Stain - Final 01/18/21 06:45 Aspirate - Nose Nasopharyngeal Culture - Final Staphylococcus aureus Gram positive mely 01/17/21 08:20 Sputum, Induced/Lukens Gram Stain - Final 01/17/21 08:20 Sputum, Induced/Lukens Respiratory Culture - Final Mixed normal respiratory solange. No Streptococcus pneumoniae, beta-hemolytic Streptococcus or Staphylococcus aureus isolated. 01/11/21 08:35 Blood Culture (Wb) - Left Hand Blood Culture - Final No growth in 5 days. 01/11/21 08:20 Blood Culture (Wb) - Anticubital Left Blood Culture - Final No growth in 5 days. 01/11/21 08:30 Nasal Secretion SARS-CoV-2 Antigen (Rapid) - Final SARS-CoV-2 (COVID 19) ABG Data ABG results: ABG 01/23/21 05:45 Specimen Type ART Sample Site L Radial pH 7.38 Bicarbonate Actual 27.3 H Total CO2 29 Base Excess 2 O2 Saturation 90 L O2 % 55 ABG pCO2 46.3 H ABG pO2 60 L Rohit Test N/A Respiration Rate 12 O2 Delivery Device Adult Vent Vent Mode BiLevel Clinical Comments APRV PHIGH 28 Radiography Diagnostic Testing: Radiology Impression KUB X-Ray 01/23/21 06:00 IMPRESSION: Abundance of stool in the bowel, no significant bowel distention to suggest obstruction. Electronically Signed: Ganga Shelley MD at 8:07 EDT Tel , Service support , KUB X-Ray 01/23/21 10:25 IMPRESSION: No demonstrated enteric tube. Electronically Signed: Frankie Ashby MD (Brooks) at 10:53 EDT , Service support , KUB X-Ray 01/23/21 10:30 IMPRESSION: Esophagogastric tube extends to the stomach. Electronically Signed: Frankie Ashby MD (Brooks) at 10:54 EDT , Service support , Physical Exam Const no apparent distress General Appearance: intubated and patient mechanically ventilated HEENT normocephalic and head/scalp atraumatic Mouth: endotracheal tube in place and OG tube in place Eyes PERRL and conjunctivae normal Neck supple General: trachea midline Chest inspection of chest normal Resp Auscultation: rhonchi and diminished lung sounds; Negative for rales or wheezes Cardio regular rate, regular rhythm, S1 normal heart sound and S2 normal heart sound GI normal to inspection, nondistended, normoactive bowel sounds Extremity no clubbing, cyanosis or edema Skin no rashes or lesions noted Neuro Sensorium / Orientation: sedated on vent Charges/Coding Procedures Hospitalists Procedures: [id number] Critial Care 1st Hr
[2021-01-24 05:56] LABS: Base Excess 2 mmol/L (-2 to +2); Bicarbonate 27.1 mmol/L (22-26); Blood Gas Specimen Type ART; FI02 70; Mode BiLevel; O2 Delivery Device Adult Vent; PO2 59 mmHG (75-100); RR 12; SITE L Radial; SO2 89 % (95-99); Total Carbon Dioxide 29 mmol/L; pCO2 46.1 mmHg (35-45); pH 7.38 (7.35-7.45)
--- NOTE | 2021-01-24 07:17 | PN.HOSP_ITS ---
Subjective Subjective Patient seen remains on the vent with increasing FiO2 requirements. Also remains heavily sedated Objective Data Objective Data Vital Signs: Vital Signs Temp Pulse Resp BP Pulse Ox 97.6 F L 95 20 H 171/94 H 92 01/24/21 06:00 01/24/21 07:00 01/24/21 07:00 01/24/21 07:00 01/24/21 07:00 Oxygen Flow Rate (L/min) 15 Oxygen Delivery Method Mechanical Ventilator Weight: 122.5 kg Body Mass Index (BMI) 78.4 Intake & Output: Intake and Output for Last 24 Hours 01/22/21 01/23/21 01/24/21 23:59 23:59 23:59 Intake Total 1557.41 / 1779.01 1809.06 / 1827.06 324.97 / 324.97 Output Total 750 / 1050 850 / 1175 325 / 325 Balance 807.41 / 729.01 959.06 / 652.06 -0.03 / -0.03 Lab / Micro Data Result Diagrams: 01/24/21 03:33 01/24/21 03:33 Labs: Laboratory Results - last 24 hr 01/24/21 03:33: WBC 12.3 H, RBC 3.85 L, Hgb 12.1 L, Hct 36.8 L, MCV 95.6 H, MCH 31.4, MCHC 32.9, RDW Std Deviation 50.0 H, RDW Coeff of Anusha 14.3, Plt Count 632 H, MPV 9.8, Immature Gran % (Auto) 1.500 H, Neut % (Auto) 88.7 H, Lymph % (Auto) 4.2 L, [place] % (Auto) 4.3, Eos % (Auto) 1.1, Baso % (Auto) 0.2, Absolute Neuts (auto) 10.9 H, Absolute Lymphs (auto) 0.52 L, Nucleated RBC % 0 01/24/21 03:33: Sodium 141, Potassium 4.6, Chloride 104, Carbon Dioxide 31.0, Anion Gap 6, BUN 84 H, Creatinine 3.42 H, Estim Creat Clear Calc 24.27, Est GFR (MDRD) Af Amer 23 L, Est GFR (MDRD) Non-Af 19 L, BUN/Creatinine Ratio 24.6 H, Glucose 95, Calcium 9.2, Total Bilirubin 0.90, AST 69 H, ALT 110 H, Alkaline Phosphatase 92, Total Protein 6.5, Albumin 1.3 L, Globulin 5.2 H, Albumin/Globulin Ratio 0.2 L Micro: Microbiology 01/18/21 06:45 Aspirate - Nose Gram Stain - Final 01/18/21 06:45 Aspirate - Nose Nasopharyngeal Culture - Final Staphylococcus aureus Gram positive mely 01/17/21 08:20 Sputum, Induced/Lukens Gram Stain - Final 01/17/21 08:20 Sputum, Induced/Lukens Respiratory Culture - Final Mixed normal respiratory solange. No Streptococcus pneumoniae, beta-hemolytic Streptococcus or Staphylococcus aureus isolated. 01/11/21 08:35 Blood Culture (Wb) - Left Hand Blood Culture - Final No growth in 5 days. 01/11/21 08:20 Blood Culture (Wb) - Anticubital Left Blood Culture - Final No growth in 5 days. 01/11/21 08:30 Nasal Secretion SARS-CoV-2 Antigen (Rapid) - Final SARS-CoV-2 (COVID 19) ABG Data ABG results: ABG 01/24/21 05:48 Specimen Type ART Sample Site L Radial pH 7.38 Bicarbonate Actual 27.1 H Total CO2 29 Base Excess 2 O2 Saturation 89 L O2 % 70 ABG pCO2 46.1 H ABG pO2 59 L Rohit Test N/A Respiration Rate 12 O2 Delivery Device Adult Vent Vent Mode BiLevel Clinical Comments PHIGH 26 Radiography Diagnostic Testing: Radiology Impression KUB X-Ray 01/23/21 06:00 IMPRESSION: Abundance of stool in the bowel, no significant bowel distention to suggest obstruction. Electronically Signed: Ganga Shelley MD at 8:07 EDT Tel , Service support , KUB X-Ray 01/23/21 10:25 IMPRESSION: No demonstrated enteric tube. Electronically Signed: Frankie Ashby MD (Brooks) at 10:53 EDT , Service support , KUB X-Ray 01/23/21 10:30 IMPRESSION: Esophagogastric tube extends to the stomach. Electronically Signed: Frankie Ashby MD (Brooks) at 10:54 EDT , Service support , Physical Exam Narrative GENERAL: Sedated on the vent HEENT: Atraumatic; EYES; Anicteric, Normal Conjunctiva NECK; supple, normal thyroid, RESPIRATORY: Diminished to auscultation CARDIOVASCULAR: Regular S1 S2, GI: soft, normoactive bowel sounds, : No Renal angle tenderness; EXTREMITIES: No edema, no clubbing, MUSCULOSKELETAL: no muscle waisting NEURO: Sedated on the vent SKIN: No Rash PSYCH; sedated on the vent Assessment & Plan Assessment/Plan (1) Pneumonia due to COVID-19 virus: (2) Acute respiratory failure with hypoxia: PLAN: Patient is a 65-year-old gentleman admitted with acute hypoxic respiratory failure secondary to Covid pneumonia. Was intubated on 01/17/2021. 1. Acute hypoxic respiratory failure ?Secondary to SARS-CoV-2 pneumonia. Patient has completed a course of remdesivir currently remains on Decadron and baricitinib. Patient was intubated on 01/17/2021. He apparently self extubated on the morning of 01/20/2021 and had to be reintubated. -01/21/2021;Patient seen still remains on the vent. Vent settings as per pulmonary medicine. WBC count slightly elevated at 14 -01/22/2021; patient seen remains on the vent with increasing oxygen demand. Currently on FiO2 of 85%. Sputum cultures came back positive for Staphylococcus aureus ;Gram positive mely -01/23/2021; patient remains sedated on the vent with no significant change in clinical condition -01/24/2021; Patient seen remains on the vent with increasing FiO2 requirements. Also remains heavily sedated 2. Acute kidney injury ?Potential nephrotoxic medications held -01/22/2021; creatinine at 1.66 3. Essential hypertension ?Patient blood pressure on hold 4. Depression with anxiety ?Patient was Paxil prior to intubation 5. DVT prophylaxis ?Lovenox Charges/Coding Visit Charges Inpatient E&M: 13898 Subs Hosp L3
[2021-01-24] MEDS: Polyethylene Glycol 3350 17 GM PACKET GT (08:09)
[2021-01-24] MEDS: Chlorhexidine 15 ML PO ×2 (08:09→21:31)
[2021-01-24] MEDS: Enoxaparin 40 MG/0.4 ML Syringe SC (08:13)
--- NOTE | 2021-01-24 08:13 | US_ITS ---
STUDY: RENAL ULTRASOUND - COMPLETE REASON FOR EXAM: Male, 65 years old. CASSANDRA TECHNIQUE: Ultrasound evaluation of the kidneys was performed with real-time and static doran-scale imaging. COMPARISON: None. FINDINGS: RIGHT KIDNEY: Normal location of the right kidney, which is normal in size. The right kidney measures 10.8 cm. There is a normal cortex of the right kidney. The renal cortex measures 1.7 cm. There is no right renal mass or cyst. There are no right renal calculi. There is no right hydronephrosis. DISTAL RIGHT URETER: There is non-visualization of the distal right ureter. There is no demonstrated right ureterovesical junction calculus. There is a visualized right ureteral jet. LEFT KIDNEY: Normal location of the left kidney, which is normal in size. The left kidney measures 11.4 cm. There is a normal cortex of the left kidney. The renal cortex measures 1.6 cm. There is no left renal mass or cyst. There are no left renal calculi. There is no left hydronephrosis. DISTAL LEFT URETER: There is non-visualization of the distal left ureter. There is no demonstrated left ureterovesical junction calculus. There is a visualized left ureteral jet. US/Kidney and Bladder IMPRESSION: Normal ultrasound of the kidneys. Electronically Signed: Norris Reyes MD at 10:01 EDT Tel , Service support ,
[2021-01-24] MEDS: Paroxetine 20 MG Tablet 40 MG GT (08:14)
[2021-01-24] MEDS: Senna/Docusate Sodium 1 Tablet 2 TABLET GT ×2 (08:14→21:35)
--- NOTE | 2021-01-24 10:45 | CASEMGMT ---
Addendum entered by Elisa Calderon 01/24/21 11:57: Pt's left message back, states at a and asked for SW to follow up next week. ALEXANDRA Rodriguez Original Note: SW participated in ICU rounds. SW called to offer support, message left. SW will continue to follow. YOEL RodriguezS
[2021-01-24 11:14] LABS: CPK Total, Creatine Kinase 47 U/L (39-308); Triglycerides 202 mg/dL
--- NOTE | 2021-01-24 12:25 | PCM.PN.REN ---
Subjective Subjective Following for CASSANDRA. The patient is sedated and intubated. Cannot do ROS. Objective Data Objective Data Vital Signs: Vital Signs Temp Pulse Resp BP Pulse Ox 98.7 F 87 16 135/80 H 93 01/24/21 08:00 01/24/21 11:00 01/24/21 11:00 01/24/21 11:00 01/24/21 11:00 Oxygen Flow Rate (L/min) 15 Oxygen Delivery Method Mechanical Ventilator Weight: 122.5 kg Body Mass Index (BMI) 78.4 Intake & Output: Intake and Output for Last 24 Hours 01/22/21 01/23/21 01/24/21 23:59 23:59 23:59 Intake Total 1557.41 / 1779.01 1809.06 / 1827.06 704.14 / 704.14 Output Total 750 / 1050 850 / 1175 325 / 325 Balance 807.41 / 729.01 959.06 / 652.06 379.14 / 379.14 Lab / Micro Data Result Diagrams: 01/24/21 03:33 01/24/21 03:33 Labs: Laboratory Results - last 24 hr 01/24/21 03:33: WBC 12.3 H, RBC 3.85 L, Hgb 12.1 L, Hct 36.8 L, MCV 95.6 H, MCH 31.4, MCHC 32.9, RDW Std Deviation 50.0 H, RDW Coeff of Anusha 14.3, Plt Count 632 H, MPV 9.8, Immature Gran % (Auto) 1.500 H, Neut % (Auto) 88.7 H, Lymph % (Auto) 4.2 L, [place] % (Auto) 4.3, Eos % (Auto) 1.1, Baso % (Auto) 0.2, Absolute Neuts (auto) 10.9 H, Absolute Lymphs (auto) 0.52 L, Nucleated RBC % 0 01/24/21 03:33: Sodium 141, Potassium 4.6, Chloride 104, Carbon Dioxide 31.0, Anion Gap 6, BUN 84 H, Creatinine 3.42 H, Estim Creat Clear Calc 24.27, Est GFR (MDRD) Af Amer 23 L, Est GFR (MDRD) Non-Af 19 L, BUN/Creatinine Ratio 24.6 H, Glucose 95, Calcium 9.2, Total Bilirubin 0.90, AST 69 H, ALT 110 H, Alkaline Phosphatase 92, Total Protein 6.5, Albumin 1.3 L, Globulin 5.2 H, Albumin/Globulin Ratio 0.2 L 01/24/21 03:33: Total Creatine Kinase 47, Triglycerides 202 H Micro: Microbiology 01/18/21 06:45 Aspirate - Nose Gram Stain - Final 01/18/21 06:45 Aspirate - Nose Nasopharyngeal Culture - Final Staphylococcus aureus Gram positive mely 01/17/21 08:20 Sputum, Induced/Lukens Gram Stain - Final 01/17/21 08:20 Sputum, Induced/Lukens Respiratory Culture - Final Mixed normal respiratory solange. No Streptococcus pneumoniae, beta-hemolytic Streptococcus or Staphylococcus aureus isolated. 01/11/21 08:35 Blood Culture (Wb) - Left Hand Blood Culture - Final No growth in 5 days. 01/11/21 08:20 Blood Culture (Wb) - Anticubital Left Blood Culture - Final No growth in 5 days. 01/11/21 08:30 Nasal Secretion SARS-CoV-2 Antigen (Rapid) - Final SARS-CoV-2 (COVID 19) ABG Data ABG results: ABG 01/24/21 05:48 Specimen Type ART Sample Site L Radial pH 7.38 Bicarbonate Actual 27.1 H Total CO2 29 Base Excess 2 O2 Saturation 89 L O2 % 70 ABG pCO2 46.1 H ABG pO2 59 L Rohit Test N/A Respiration Rate 12 O2 Delivery Device Adult Vent Vent Mode BiLevel Clinical Comments PHIGH 26 Radiography Diagnostic Testing: Radiology Impression Renal Ultrasound 01/24/21 08:13 IMPRESSION: Normal ultrasound of the kidneys. Electronically Signed: Norris Reyes MD at 10:01 EDT Tel , Service support , Physical Exam Narrative sedated, on ventilator no obvious distress no pallor no icterus no JVD s1s2 no murmurs lungs with coarse breath sound bilaterally abdomen soft no organomegaly no edema no cyanosis cooley + Assessment & Plan Assessment/Plan (1) CASSANDRA (acute kidney injury): PLAN: -Baseline creatinine is around 1.0-1.1 milligram per deciliter. -CASSANDRA is likely due to ischemic ATN. The patient is not oliguric. He made 850 cc of urine in the last 24 hours. -Serum creatinine is up trending. However, the patient is not hyperkalemic, acidotic or severely volume overloaded. -Therefore, there is no urgent need for dialysis today. -However, we will continue to monitor the patient closely since he still has CASSANDRA stage III. -Current medications are reviewed and are appropriately dosed for his estimated creatinine clearance.
[2021-01-24] MEDS: TITRATION PARAMETER CHANGE 1 EACH IV (13:54)
[2021-01-24] MEDS: Labetalol (Prefilled) 20 MG/4 ML 10 MG IV (19:44)
[2021-01-24] MEDS: 0.9% Saline Lock 10 ML Syringe IV (19:45)
[2021-01-24] MEDS: Enoxaparin 40 MG/0.4 ML Syringe 30 MG SC (21:31)
[2021-01-25] VITALS (34 sets, daily range): BP systolic 122–171; BP diastolic 71–96; PULSE 79–105; RESP 15–38; TEMP 36.6–38.2; O2SAT 89–93
[2021-01-25 04:35] LABS: Allen Test Positive; Base Excess 1 mmol/L (-2 to +2); Bicarbonate 24.8 mmol/L (22-26); Blood Gas Specimen Type ART; FI02 55; Mode BiLevel; O2 Delivery Device Adult Vent; PO2 54 mmHG (75-100); RR 12; SITE R Radial; SO2 89 % (95-99); Total Carbon Dioxide 26 mmol/L; pCO2 37.2 mmHg (35-45); pH 7.43 (7.35-7.45)
[2021-01-25 04:38] LABS: Absolute Lymphocyte Count 0.28 X10^3/uL (0.83-4.51); Absolute Neutrophil Count 9.3 X10^3/uL (2.0-7.7); Basophil# 0.05 X10^3/uL; Basophil% 0.5 % (0-1); Eosinophil# 0.09 X10^3/uL; Eosinophils% 0.8 % (0-5); Hematocrit 38.5 % (40-54); Lymphocyte # 0.28 X10^3/ul (0.83-4.51); Lymphocyte % 2.6 % (19-41); Mean Corp Hgb Conc 33.8 g/dL (32-36); Mean Corpuscular Hgb 31.9 pg (27.0-32.0); Mean Corpuscular Volume 94.4 fL (80-94); Mean Platelet Vol. 9.5 fl (6.2-12.0); Monocyte# 0.86 X10^3/uL; Monocyte% 7.9 % (0-10); NRBC Flagged by Analyzer 0 % (0-5); Neutrophil # 9.31 X10^3/uL (2.7-7.7); POSITIVE DIFFERENTIAL YES; Platelet Count 636 K/mm3 (150-450); RBC Distribution Width CV 14.2 % (11.6-14.6); RBC Distribution Width SD 49.1 fl (35.1-43.9); Red Blood Count 4.08 M/mm3 (4.6-6.2); White Blood Count 10.8 K/mm3 (4.4-11.0)
[2021-01-25 05:04] LABS: Differential Indicated SCAN CRITERIA MET
[2021-01-25 05:20] LABS: ALB/GLOB Ratio 0.2 RATIO (0.9-2.4); AST(SGOT) 92 U/L (15-37); Alanine Aminotransfer ALT/SGPT 136 U/L (16-61); Albumin, Serum 1.3 g/dL (3.2-5.0); Alkaline Phosphatase 123 U/L (45-117); Anion Gap 8 (5-15); BUN 102 mg/dL (7-18); BUN/Creat Ratio 26.2 RATIO (10-20); Calcium,Total 9.4 mg/dL (8.5-10.1); Chloride 102 mmol/L (98-107); EST Glomerular Filtration Rate 17 mL/min (>60); Est Glom Filt Rate - Afr Amer 20 mL/min (>60); Estimated Creatinine Clearance 21.28 ml/min; Globulin 5.6 g/dL (2.2-4.2); Glucose 115 mg/dL (74-106); Protein, Total 6.9 g/dL (6.4-8.2); Sodium Level 138 mmol/L (136-145)
[2021-01-25 05:21] LABS: Differential Comment SCANNED
--- NOTE | 2021-01-25 05:30 | PN.CC_ITS ---
Assessment & Plan Assessment/Plan (1) Pneumonia due to COVID-19 virus: PLAN: RECOMMENDATIONS: 1. Titrate P high and FiO2 for saturations greater than 90%. 2. Continue antimicrobials to complete 7-day treatment course. 3. Continue Lovenox twice daily as ordered. 4. Continue appropriate GI prophylaxis. 5. Continue tube feeds as tolerated. 6. Aggressive bowel regimen. 7. Nephrology following to assist with possible future dialysis needs. IMPRESSIONS: 1. Acute hypoxemic respiratory failure secondary to ARDS due to COVID-19 pneumonia Although noninvasive positive pressure ventilatory support was initially utilized in attempt to stabilize the patient, he continued to decompensate clinically and required intubation on January 17. The patient will be continued on APRV mode of mechanical ventilation with P high and FiO2 weaned as tolerated to maintain saturations at or above 90%. The patient has already completed a treatment course of remdesivir and Decadron. Baricitinib ultimately had to be discontinued due to worsening renal insufficiency. Dose adjusted Lovenox will be continued as ordered. Unable to diurese the patient due to underlying renal dysfunction. Continue antimicrobials to complete 7-day treatment course to address underlying MSSA isolated on sputum culture. 2. Acute kidney injury Worsening. Likely prerenal in etiology. Nephrology is currently following to assist with any future hemodialysis needs. 3. Hypertension/obesity Complicates care, management, recovery and prognosis. Resume antihypertensives once extubated. Continue supportive measures including tube feeds as tolerated. TIME: 34 minutes of critical care time, independent of procedures, was spent addressing the patient's acute hypoxemic respiratory failure secondary to COVID- 19 pneumonia, acute kidney injury, hypertension, review of all data and collaboration with care team. ([id number]) Subjective Subjective The patient was seen and examined at the bedside this morning. Events from the last 24 hours have been reviewed. The patient is currently afebrile, hemodyna mically stable and maintaining appropriate oxygen saturations on APRV with a P high of 26 and FiO2 of 70%. The patient is currently documented to be overall net +1.4 L for the hospital admission. The patient remains sedated on propofol and fentanyl. The patient remains on antimicrobials and prophylactic Lovenox. BUN has increased this morning to 102 with a creatinine of 3.9. Triglycerides were last noted to be 202 on January 24. Objective Data Objective Data The patient's most recent lab work, culture data and imaging studies have all been personally reviewed. Rapid coronavirus antigen testing was positive on Sep tember 23. Sputum culture was positive for MSSA. Vital Signs: Vital Signs Temp Pulse Resp BP Pulse Ox 98.5 F 97 22 H 147/87 H 90 01/25/21 04:00 01/25/21 05:00 01/25/21 05:00 01/25/21 05:00 01/25/21 05:00 Oxygen Flow Rate (L/min) 60 Oxygen Delivery Method Mechanical Ventilator Weight: 122.5 kg Body Mass Index (BMI) 78.4 Intake & Output: Intake and Output for Last 24 Hours 01/23/21 01/24/21 01/25/21 23:59 23:59 23:59 Intake Total 1809.06 / 1827.06 1114.01 / 1142.17 196.36 / 196.36 Output Total 850 / 1175 1100 / 1100 Balance 959.06 / 652.06 14.01 / 42.17 196.36 / 196.36 Lab / Micro Data Attestation: I reviewed the patient's lab results. Result Diagrams: 01/25/21 04:30 01/25/21 04:30 Labs: Laboratory Results - last 24 hr 01/24/21 03:33: Total Creatine Kinase 47, Triglycerides 202 H 01/25/21 04:30: WBC 10.8, RBC 4.08 L, Hgb 13.0, Hct 38.5 L, MCV 94.4 H, MCH 31.9, MCHC 33.8, RDW Std Deviation 49.1 H, RDW Coeff of Anusha 14.2, Plt Count 636 H, MPV 9.5, Immature Gran % (Auto) 2.200 H, Neut % (Auto) 86.0 H, Lymph % (Auto) 2.6 L, [place] % (Auto) 7.9, Eos % (Auto) 0.8, Baso % (Auto) 0.5, Absolute Neuts (auto) 9.3 H, Absolute Lymphs (auto) 0.28 L, Nucleated RBC % 0, Differential Comment SCANNED 01/25/21 04:30: Sodium 138, Potassium 5.0, Chloride 102, Carbon Dioxide 28.0, Anion Gap 8, BUN 102 H*, Creatinine 3.90 H, Estim Creat Clear Calc 21.28, Est GFR (MDRD) Af Amer 20 L, Est GFR (MDRD) Non-Af 17 L, BUN/Creatinine Ratio 26.2 H , Glucose 115 H, Calcium 9.4, Total Bilirubin 0.90, AST 92 H, ALT 136 H, Alkaline Phosphatase 123 H, Total Protein 6.9, Albumin 1.3 L, Globulin 5.6 H, Albumin/Globulin Ratio 0.2 L Micro: Microbiology 01/18/21 06:45 Aspirate - Nose Gram Stain - Final 01/18/21 06:45 Aspirate - Nose Nasopharyngeal Culture - Final Staphylococcus aureus Gram positive mely 01/17/21 08:20 Sputum, Induced/Lukens Gram Stain - Final 01/17/21 08:20 Sputum, Induced/Lukens Respiratory Culture - Final Mixed normal respiratory solange. No Streptococcus pneumoniae, beta-hemolytic Streptococcus or Staphylococcus aureus isolated. 01/11/21 08:35 Blood Culture (Wb) - Left Hand Blood Culture - Final No growth in 5 days. 01/11/21 08:20 Blood Culture (Wb) - Anticubital Left Blood Culture - Final No growth in 5 days. 01/11/21 08:30 Nasal Secretion SARS-CoV-2 Antigen (Rapid) - Final SARS-CoV-2 (COVID 19) ABG Data ABG results: ABG 01/24/21 01/25/21 05:48 04:28 Specimen Type ART ART Sample Site L Radial R Radial pH 7.38 7.43 Bicarbonate Actual 27.1 H 24.8 Total CO2 29 26 Base Excess 2 1 O2 Saturation 89 L 89 L O2 % 70 55 ABG pCO2 46.1 H 37.2 ABG pO2 59 L 54 L Rohit Test N/A Positive Respiration Rate 12 12 O2 Delivery Device Adult Vent Adult Vent Vent Mode BiLevel BiLevel Clinical Comments PHIGH 26 APRV PH 26 TH 4.5 Radiography Diagnostic Testing: Radiology Impression Renal Ultrasound 01/24/21 08:13 IMPRESSION: Normal ultrasound of the kidneys. Electronically Signed: Norris Reyes MD at 10:01 EDT Tel , Service support , Physical Exam Const no apparent distress General Appearance: intubated and patient mechanically ventilated HEENT normocephalic and head/scalp atraumatic Mouth: endotracheal tube in place and OG tube in place Eyes PERRL and conjunctivae normal Neck supple General: trachea midline Chest inspection of chest normal Resp Auscultation: rhonchi and diminished lung sounds; Negative for rales or wheezes Cardio regular rate, regular rhythm, S1 normal heart sound and S2 normal heart sound GI normal to inspection, nondistended, normoactive bowel sounds Extremity no clubbing, cyanosis or edema Skin no rashes or lesions noted Neuro Sensorium / Orientation: sedated on vent Charges/Coding Procedures Hospitalists Procedures: 45136 Critial Care 1st Hr
[2021-01-25] MEDS: CHLORHEXIDINE GLUC 2% CLOTH 1 EACH TOWELETTE TOPICAL (05:48)
[2021-01-25] MEDS: Propofol 10MG/Ml 1,000 MG/100 ML Bottle 14.1 MG CONT INF ×3 (05:48→16:41)
[2021-01-25] MEDS: 0.9% Saline Lock 10 ML Syringe IV (05:48)
[2021-01-25] MEDS: Vital AF 1.2 Cal Liquid 1,000 ML 70 ML GT (06:02)
--- NOTE | 2021-01-25 07:04 | PCM.PN.HOSP ---
Subjective Subjective Patient remains on the vent consult was placed to nephrology a day prior in view of worsening kidney function Objective Data Objective Data Vital Signs: Vital Signs Temp Pulse Resp BP Pulse Ox 98.5 F 101 H 27 H 164/88 H 91 01/25/21 04:00 01/25/21 06:58 01/25/21 06:58 01/25/21 06:00 01/25/21 06:58 Oxygen Flow Rate (L/min) 8 Oxygen Delivery Method Nasal Cannula Weight: 121.8 kg Body Mass Index (BMI) 78.4 Intake & Output: Intake and Output for Last 24 Hours 01/23/21 01/24/21 01/25/21 23:59 23:59 23:59 Intake Total 1809.06 / 1827.06 1114.01 / 1142.17 464.26 / 464.26 Output Total 850 / 1175 1100 / 1100 450 / 450 Balance 959.06 / 652.06 14.01 / 42.17 14.26 / 14.26 Lab / Micro Data Result Diagrams: 01/25/21 04:30 01/25/21 04:30 Labs: Laboratory Results - last 24 hr 01/24/21 03:33: Total Creatine Kinase 47, Triglycerides 202 H 01/25/21 04:30: WBC 10.8, RBC 4.08 L, Hgb 13.0, Hct 38.5 L, MCV 94.4 H, MCH 31.9, MCHC 33.8, RDW Std Deviation 49.1 H, RDW Coeff of Anusha 14.2, Plt Count 636 H, MPV 9.5, Immature Gran % (Auto) 2.200 H, Neut % (Auto) 86.0 H, Lymph % (Auto) 2.6 L, [place] % (Auto) 7.9, Eos % (Auto) 0.8, Baso % (Auto) 0.5, Absolute Neuts (auto) 9.3 H, Absolute Lymphs (auto) 0.28 L, Nucleated RBC % 0, Differential Comment SCANNED 01/25/21 04:30: Sodium 138, Potassium 5.0, Chloride 102, Carbon Dioxide 28.0, Anion Gap 8, BUN 102 H*, Creatinine 3.90 H, Estim Creat Clear Calc 21.28, Est GFR (MDRD) Af Amer 20 L, Est GFR (MDRD) Non-Af 17 L, BUN/Creatinine Ratio 26.2 H, Glucose 115 H, Calcium 9.4, Total Bilirubin 0.90, AST 92 H, ALT 136 H, Alkaline Phosphatase 123 H, Total Protein 6.9, Albumin 1.3 L, Globulin 5.6 H, Albumin/Globulin Ratio 0.2 L Micro: Microbiology 01/18/21 06:45 Aspirate - Nose Gram Stain - Final 01/18/21 06:45 Aspirate - Nose Nasopharyngeal Culture - Final Staphylococcus aureus Gram positive mely 01/17/21 08:20 Sputum, Induced/Lukens Gram Stain - Final 01/17/21 08:20 Sputum, Induced/Lukens Respiratory Culture - Final Mixed normal respiratory solange. No Streptococcus pneumoniae, beta-hemolytic Streptococcus or Staphylococcus aureus isolated. 01/11/21 08:35 Blood Culture (Wb) - Left Hand Blood Culture - Final No growth in 5 days. 01/11/21 08:20 Blood Culture (Wb) - Anticubital Left Blood Culture - Final No growth in 5 days. 01/11/21 08:30 Nasal Secretion SARS-CoV-2 Antigen (Rapid) - Final SARS-CoV-2 (COVID 19) ABG Data ABG results: ABG 01/25/21 04:28 Specimen Type ART Sample Site R Radial pH 7.43 Bicarbonate Actual 24.8 Total CO2 26 Base Excess 1 O2 Saturation 89 L O2 % 55 ABG pCO2 37.2 ABG pO2 54 L Rohit Test Positive Respiration Rate 12 O2 Delivery Device Adult Vent Vent Mode BiLevel Clinical Comments APRV PH 26 TH 4.5 Radiography Diagnostic Testing: Radiology Impression Renal Ultrasound 01/24/21 08:13 IMPRESSION: Normal ultrasound of the kidneys. Electronically Signed: Norris Reyes MD at 10:01 EDT Tel , Service support , Physical Exam Narrative GENERAL: Sedated on the vent HEENT: Atraumatic; EYES; Anicteric, Normal Conjunctiva NECK; supple, normal thyroid, RESPIRATORY: Diminished to auscultation CARDIOVASCULAR: Regular S1 S2, GI: soft, normoactive bowel sounds, : No Renal angle tenderness; EXTREMITIES: No edema, no clubbing, MUSCULOSKELETAL: no muscle waisting NEURO: Sedated on the vent SKIN: No Rash PSYCH; sedated on the vent Assessment & Plan Assessment/Plan (1) Pneumonia due to COVID-19 virus: (2) Acute respiratory failure with hypoxia: PLAN: Patient is a 65-year-old gentleman admitted with acute hypoxic respiratory failure secondary to Covid pneumonia. Was intubated on 01/17/2021. 1. Acute hypoxic respiratory failure ?Secondary to SARS-CoV-2 pneumonia. Patient has completed a course of remdesivir currently remains on Decadron and baricitinib. Patient was intubated on 01/17/2021. He apparently self extubated on the morning of 01/20/2021 and had to be reintubated. -01/21/2021;Patient seen still remains on the vent. Vent settings as per pulmonary medicine. WBC count slightly elevated at 14 -01/22/2021; patient seen remains on the vent with increasing oxygen demand. Currently on FiO2 of 85%. Sputum cultures came back positive for Staphylococcus aureus ;Gram positive mely -01/23/2021; patient remains sedated on the vent with no significant change in clinical condition -01/24/2021; Patient seen remains on the vent with increasing FiO2 requirements. Also remains heavily sedated 2. Acute kidney injury ?Potential nephrotoxic medications held -01/22/2021; creatinine at 1.66 -01/25/2021. Creatinine up to 3.9 consult placed to nephrology patient was seen by Dr. Hayes's note and recommendations reviewed. 3. Essential hypertension ?Patient blood pressure on hold 4. Depression with anxiety ?Patient was Paxil prior to intubation 5. DVT prophylaxis ?Lovenox Charges/Coding Visit Charges Inpatient E&M: 95724 [facility] Hosp L3
[2021-01-25] MEDS: Senna/Docusate Sodium 1 Tablet 2 TABLET GT ×2 (07:56→20:13)
[2021-01-25] MEDS: Chlorhexidine 15 ML PO ×2 (07:56→20:12)
[2021-01-25] MEDS: Paroxetine 20 MG Tablet 40 MG GT (07:57)
[2021-01-25] MEDS: Polyethylene Glycol 3350 17 GM PACKET GT (07:57)
[2021-01-25] MEDS: Enoxaparin 40 MG/0.4 ML Syringe 30 MG SC ×2 (08:10→20:13)
--- NOTE | 2021-01-25 10:27 | RAD_ITS ---
HISTORY: fever. TECHNIQUE: XR Chest 1 View. EXAM TIME: 2021-01-25 11:30. # of images incl. paperwork: 1. COMPARISON:01/19/2021. FINDINGS: LINES/DEVICES: Endotracheal tube tip at the level of the mid trachea. Nasogastric tube side-port advanced. CARDIOMEDIASTINAL BORDERS: Stable. LUNGS: Persistent bilateral alveolar opacities. PLEURA: No pleural effusion or pneumothorax. RAD/Chest 1 View (Portable) IMPRESSION: No significant interval change in bilateral pneumonia or ARDS. at 1206 Reported and signed by: Cassandra Simms MD Electronically Signed: Cassandra Simms MD at 12:05 EDT Tel , Service support ,
[2021-01-25] MEDS: Labetalol (Prefilled) 20 MG/4 ML 10 MG IV (10:32)
[2021-01-25] MEDS: Acetaminophen 650 MG/20 ML UDC GT (10:53)
[2021-01-25 11:10] LABS: Color, Urine Yellow (Yellow); Glucose, Dipstick Normal (Normal); Ketone-Dipstick Negative (Negative); Leukocyte Esterase-Dipstick 25 /ul (Negative); Nitrite-Dipstick Negative (Negative); Occult Blood-Urine 250 /ul (Negative); Protein-Dipstick 30 mg/dl (Negative); Specific Gravity, Urine 1.015 (1.002-1.030); Urine Bilirubin Dipstick Negative (Negative); Urine Clarity Cloudy (Clear); Urine Urobilinogen Normal (Normal)
[2021-01-25 11:17] LABS: Amorphous Sediment 2+; Bacteria 2+ /hpf (None Seen); Fine Granular Cast- Urine 5-10 SEEN /lpf (0-5); Mucous, Urine RARE /hpf (<or=2+); Red Blood Cells-Urine 25-50 SEEN /hpf (0-5); Squamous Epithelial Cells - UA 0-5 SEEN /hpf (0-5); White Blood Cells 0-5 SEEN /hpf (0-5)
--- NOTE | 2021-01-25 17:33 | PN.RENAL_ITS ---
Subjective Subjective no new events Objective Data Objective Data Vital Signs: Vital Signs Temp Pulse Resp BP Pulse Ox 98.6 F 79 33 H 134/76 H 92 01/25/21 15:00 01/25/21 16:43 01/25/21 16:43 01/25/21 16:41 01/25/21 16:43 Oxygen Flow Rate (L/min) 8 Oxygen Delivery Method Mechanical Ventilator Weight: 121.8 kg Body Mass Index (BMI) 78.4 Intake & Output: Intake and Output for Last 24 Hours 01/23/21 01/24/21 01/25/21 23:59 23:59 23:59 Intake Total 1809.06 / 1827.06 1114.01 / 1142.17 976.86 / 976.86 Output Total 850 / 1175 1100 / 1100 800 / 800 Balance 959.06 / 652.06 14.01 / 42.17 176.86 / 176.86 Lab / Micro Data Result Diagrams: 01/25/21 04:30 01/25/21 04:30 Labs: Laboratory Results - last 24 hr 01/25/21 04:30: WBC 10.8, RBC 4.08 L, Hgb 13.0, Hct 38.5 L, MCV 94.4 H, MCH 31.9, MCHC 33.8, RDW Std Deviation 49.1 H, RDW Coeff of Anusha 14.2, Plt Count 636 H, MPV 9.5, Immature Gran % (Auto) 2.200 H, Neut % (Auto) 86.0 H, Lymph % (Auto) 2.6 L, [place] % (Auto) 7.9, Eos % (Auto) 0.8, Baso % (Auto) 0.5, Absolute Neuts (auto) 9.3 H, Absolute Lymphs (auto) 0.28 L, Nucleated RBC % 0, Differential Comment SCANNED 01/25/21 04:30: Sodium 138, Potassium 5.0, Chloride 102, Carbon Dioxide 28.0, Anion Gap 8, BUN 102 H*, Creatinine 3.90 H, Estim Creat Clear Calc 21.28, Est GFR (MDRD) Af Amer 20 L, Est GFR (MDRD) Non-Af 17 L, BUN/Creatinine Ratio 26.2 H , Glucose 115 H, Calcium 9.4, Total Bilirubin 0.90, AST 92 H, ALT 136 H, Alkaline Phosphatase 123 H, Total Protein 6.9, Albumin 1.3 L, Globulin 5.6 H, Albumin/Globulin Ratio 0.2 L 01/25/21 10:50: Urine Color Yellow, Urine Clarity Cloudy, Urine pH 5.0, Ur Specific [place] 1.015, Urine Protein 30 H, Urine Glucose (UA) Normal, Urine Ketones Negative, Urine Occult Blood 250 H, Urine Nitrite Negative, Urine Bilirubin Negative, Urine Urobilinogen Normal, Ur Leukocyte Esterase 25 H, Urine RBC 25-50 SEEN, Urine WBC 0-5 SEEN, Ur Squamous Epith Cells 0-5 SEEN, Amorphous Sediment 2+, Urine Bacteria 2+, Fine Granular Casts 5-10 SEEN, Urine Mucus RARE Micro: Microbiology 01/18/21 06:45 Aspirate - Nose Gram Stain - Final 01/18/21 06:45 Aspirate - Nose Nasopharyngeal Culture - Final Staphylococcus aureus Gram positive mely 01/17/21 08:20 Sputum, Induced/Lukens Gram Stain - Final 01/17/21 08:20 Sputum, Induced/Lukens Respiratory Culture - Final Mixed normal respiratory solange. No Streptococcus pneumoniae, beta-hemolytic Streptococcus or Staphylococcus aureus isolated. 01/11/21 08:35 Blood Culture (Wb) - Left Hand Blood Culture - Final No growth in 5 days. 01/11/21 08:20 Blood Culture (Wb) - Anticubital Left Blood Culture - Final No growth in 5 days. 01/11/21 08:30 Nasal Secretion SARS-CoV-2 Antigen (Rapid) - Final SARS-CoV-2 (COVID 19) ABG Data ABG results: ABG 01/25/21 04:28 Specimen Type ART Sample Site R Radial pH 7.43 Bicarbonate Actual 24.8 Total CO2 26 Base Excess 1 O2 Saturation 89 L O2 % 55 ABG pCO2 37.2 ABG pO2 54 L Rohit Test Positive Respiration Rate 12 O2 Delivery Device Adult Vent Vent Mode BiLevel Clinical Comments APRV PH 26 TH 4.5 Radiography Diagnostic Testing: Radiology Impression Chest X-Ray 01/25/21 10:27 IMPRESSION: No significant interval change in bilateral pneumonia or ARDS. at 1206 Reported and signed by: Cassandra Simms MD Electronically Signed: Cassandra Simms MD at 12:05 EDT Tel , Service support , Physical Exam Narrative sedated, on ventilator no obvious distress no pallor no icterus no JVD s1s2 no murmurs lungs with coarse breath sound bilaterally abdomen soft no organomegaly no edema no cyanosis cooley + Assessment & Plan Assessment/Plan (1) CASSANDRA (acute kidney injury): PLAN: -Baseline creatinine is around 1.0-1.1 milligram per deciliter. -CASSANDRA is likely due to ischemic ATN. The patient is not oliguric. -Serum creatinine is up trending. However, the patient is not hyperkalemic, acidotic or severely volume overloaded. -Therefore, there is no urgent need for dialysis today. -However, we will continue to monitor the patient closely since he still has CASSANDRA -Current medications are reviewed and are appropriately dosed for his estimated creatinine clearance. -may need dialysis if no turn around in 1-2 days
[2021-01-25] MEDS: Propofol 10MG/Ml 1,000 MG/100 ML Bottle 14.6 MG CONT INF (22:36)
[2021-01-26] VITALS (29 sets, daily range): BP systolic 92–198; BP diastolic 63–121; PULSE 60–166; RESP 10–97; TEMP 35.7–37.7; O2SAT 20–95
[2021-01-26 04:09] LABS: Absolute Lymphocyte Count 0.26 X10^3/uL (0.83-4.51); Absolute Neutrophil Count 10.3 X10^3/uL (2.0-7.7); Basophil# 0.06 X10^3/uL; Basophil% 0.5 % (0-1); Eosinophil# 0.13 X10^3/uL; Eosinophils% 1.1 % (0-5); Hematocrit 38.1 % (40-54); Hemoglobin 12.8 g/dL (13.0-16.5); Lymphocyte # 0.26 X10^3/ul (0.83-4.51); Lymphocyte % 2.2 % (19-41); Mean Corp Hgb Conc 33.6 g/dL (32-36); Mean Corpuscular Hgb 31.6 pg (27.0-32.0); Mean Corpuscular Volume 94.1 fL (80-94); Mean Platelet Vol. 9.6 fl (6.2-12.0); Monocyte# 0.97 X10^3/uL; Monocyte% 8.2 % (0-10); NRBC Flagged by Analyzer 0 % (0-5); Neutrophil # 10.28 X10^3/uL (2.7-7.7); Neutrophil % 86.5 % (47-70); POSITIVE DIFFERENTIAL YES; Platelet Count 544 K/mm3 (150-450); RBC Distribution Width CV 14.3 % (11.6-14.6); RBC Distribution Width SD 49.4 fl (35.1-43.9); Red Blood Count 4.05 M/mm3 (4.6-6.2); White Blood Count 11.9 K/mm3 (4.4-11.0)
[2021-01-26] MEDS: CHLORHEXIDINE GLUC 2% CLOTH 1 EACH TOWELETTE TOPICAL (04:29)
[2021-01-26] MEDS: Propofol 10MG/Ml 1,000 MG/100 ML Bottle 14.6 MG CONT INF ×3 (04:30→15:26)
[2021-01-26] MEDS: Vital AF 1.2 Cal Liquid 1,000 ML 50 ML GT (04:30)
[2021-01-26 04:56] LABS: Allen Test Positive; Base Excess 0 mmol/L (-2 to +2); Bicarbonate 24.9 mmol/L (22-26); Blood Gas Specimen Type ART; FI02 75; Mode BiLevel; O2 Delivery Device Adult Vent; PO2 71 mmHG (75-100); RR 12; SITE R Radial; SO2 93 % (95-99); Total Carbon Dioxide 26 mmol/L; pCO2 43.3 mmHg (35-45); pH 7.37 (7.35-7.45)
[2021-01-26 05:28] LABS: ALB/GLOB Ratio 0.2 RATIO (0.9-2.4); AST(SGOT) 99 U/L (15-37); Alanine Aminotransfer ALT/SGPT 147 U/L (16-61); Albumin, Serum 1.3 g/dL (3.2-5.0); Alkaline Phosphatase 148 U/L (45-117); Anion Gap 11 (5-15); BUN 116 mg/dL (7-18); BUN/Creat Ratio 27.1 RATIO (10-20); Calcium,Total 9.7 mg/dL (8.5-10.1); Chloride 103 mmol/L (98-107); Creatinine, Serum 4.28 mg/dL (0.70-1.30); EST Glomerular Filtration Rate 15 mL/min (>60); Est Glom Filt Rate - Afr Amer 18 mL/min (>60); Estimated Creatinine Clearance 19.39 ml/min; Globulin 5.4 g/dL (2.2-4.2); Glucose 130 mg/dL (74-106); Potassium 4.9 mmol/L (3.5-5.1); Protein, Total 6.7 g/dL (6.4-8.2); Sodium Level 140 mmol/L (136-145)
[2021-01-26 05:32] LABS: Differential Indicated SCAN CRITERIA MET
--- NOTE | 2021-01-26 05:40 | PCM.PN.INT ---
Assessment & Plan Assessment/Plan (1) Pneumonia due to COVID-19 virus: PLAN: RECOMMENDATIONS: 1. Titrate P high and FiO2 for saturations greater than 90%. 2. Continue antimicrobials to complete 7-day treatment course. 3. Continue Lovenox twice daily as ordered. 4. Continue appropriate GI prophylaxis. 5. Continue tube feeds as tolerated. 6. Aggressive bowel regimen. 7. Nephrology following to assist with possible future dialysis needs. IMPRESSIONS: 1. Acute hypoxemic respiratory failure secondary to ARDS due to COVID-19 pneumonia Although noninvasive positive pressure ventilatory support was initially utilized in attempt to stabilize the patient, he continued to decompensate clinically and required intubation on January 17. The patient will be continued on APRV mode of mechanical ventilation with P high and FiO2 weaned as tolerated to maintain saturations at or above 90%. The patient has already completed a treatment course of remdesivir and Decadron. Baricitinib ultimately had to be discontinued due to worsening renal insufficiency. Dose adjusted Lovenox will be continued as ordered. Unable to diurese the patient due to underlying renal dysfunction. Continue antimicrobials to complete 7-day treatment course to address underlying MSSA isolated on sputum culture. 2. Acute kidney injury Worsening. Likely prerenal in etiology. Nephrology is currently following to assist with any future hemodialysis needs. 3. Hypertension/obesity Complicates care, management, recovery and prognosis. Continue supportive measures including tube feeds as tolerated. TIME: 33 minutes of critical care time, independent of procedures, was spent addressing the patient's acute hypoxemic respiratory failure secondary to COVID-19 pneumonia, acute kidney injury, hypertension, review of all data and collaboration with care team. ([id number]) Subjective Subjective The patient was seen and examined at the bedside this morning. Events from the last 24 hours have been reviewed. The patient is currently afebrile, hemodynamically stable and maintaining appropriate oxygen saturations on APRV with a P high of 26 and FiO2 of 75%. The patient is currently documented to be overall net +2 L for the hospital admission. The patient remains sedated on propofol and fentanyl. The patient remains on antimicrobials and prophylactic Lovenox. The patient is on the vent day 11. He has been tolerant of tube feeds. Per nursing, he did have a small bowel movement. Arterial blood gas is stable. BUN has worsened to 116 with a creatinine of 4.28. Objective Data Objective Data The patient's most recent lab work, culture data and imaging studies have all been personally reviewed. Rapid coronavirus antigen testing was positive on January 09. Sputum culture was positive for MSSA. Vital Signs: Vital Signs Temp Pulse Resp BP Pulse Ox 98.5 F 99 36 H 92/63 92 01/26/21 00:00 01/26/21 03:56 01/26/21 03:56 01/26/21 00:00 01/26/21 03:56 Oxygen Flow Rate (L/min) 8 Oxygen Delivery Method Mechanical Ventilator Weight: 121.8 kg Body Mass Index (BMI) 78.4 Intake & Output: Intake and Output for Last 24 Hours 01/24/21 01/25/21 01/26/21 23:59 23:59 23:59 Intake Total 1114.01 / 1142.17 1417.43 / 1568.66 869.93 / 869.93 Output Total 1100 / 1100 800 / 800 725 / 725 Balance 14.01 / 42.17 617.43 / 768.66 144.93 / 144.93 Lab / Micro Data Attestation: I reviewed the patient's lab results. Result Diagrams: 01/26/21 03:52 01/26/21 03:52 Labs: Laboratory Results - last 24 hr 01/25/21 10:50: Urine Color Yellow, Urine Clarity Cloudy, Urine pH 5.0, Ur Specific [place] 1.015, Urine Protein 30 H, Urine Glucose (UA) Normal, Urine Ketones Negative, Urine Occult Blood 250 H, Urine Nitrite Negative, Urine Bilirubin Negative, Urine Urobilinogen Normal, Ur Leukocyte Esterase 25 H, Urine RBC 25-50 SEEN, Urine WBC 0-5 SEEN, Ur Squamous Epith Cells 0-5 SEEN, Amorphous Sediment 2+, Urine Bacteria 2+, Fine Granular Casts 5-10 SEEN, Urine Mucus RARE 01/26/21 03:52: WBC 11.9 H, RBC 4.05 L, Hgb 12.8 L, Hct 38.1 L, MCV 94.1 H, MCH 31.6, MCHC 33.6, RDW Std Deviation 49.4 H, RDW Coeff of Anusha 14.3, Plt Count 544 H, MPV 9.6, Immature Gran % (Auto) 1.500 H, Neut % (Auto) 86.5 H, Lymph % (Auto) 2.2 L, [place] % (Auto) 8.2, Eos % (Auto) 1.1, Baso % (Auto) 0.5, Absolute Neuts (auto) 10.3 H, Absolute Lymphs (auto) 0.26 L, Nucleated RBC % 0 01/26/21 03:52: Sodium 140, Potassium 4.9, Chloride 103, Carbon Dioxide 26.0, Anion Gap 11, BUN 116 H*, Creatinine 4.28 H, Estim Creat Clear Calc 19.39, Est GFR (MDRD) Af Amer 18 L, Est GFR (MDRD) Non-Af 15 L, BUN/Creatinine Ratio 27.1 H, Glucose 130 H, Calcium 9.7, Total Bilirubin 1.00, AST 99 H, ALT 147 H, Alkaline Phosphatase 148 H, Total Protein 6.7, Albumin 1.3 L, Globulin 5.4 H, Albumin/Globulin Ratio 0.2 L Micro: Microbiology 01/18/21 06:45 Aspirate - Nose Gram Stain - Final 01/18/21 06:45 Aspirate - Nose Nasopharyngeal Culture - Final Staphylococcus aureus Gram positive mely 01/17/21 08:20 Sputum, Induced/Lukens Gram Stain - Final 01/17/21 08:20 Sputum, Induced/Lukens Respiratory Culture - Final Mixed normal respiratory solange. No Streptococcus pneumoniae, beta-hemolytic Streptococcus or Staphylococcus aureus isolated. 01/11/21 08:35 Blood Culture (Wb) - Left Hand Blood Culture - Final No growth in 5 days. 01/11/21 08:20 Blood Culture (Wb) - Anticubital Left Blood Culture - Final No growth in 5 days. 01/11/21 08:30 Nasal Secretion SARS-CoV-2 Antigen (Rapid) - Final SARS-CoV-2 (COVID 19) ABG Data ABG results: ABG 01/26/21 04:48 Specimen Type ART Sample Site R Radial pH 7.37 Bicarbonate Actual 24.9 Total CO2 26 Base Excess 0 O2 Saturation 93 L O2 % 75 ABG pCO2 43.3 ABG pO2 71 L Rohit Test Positive Respiration Rate 12 O2 Delivery Device Adult Vent Vent Mode BiLevel Clinical Comments APRV PH 26 TH 4.5 Radiography Diagnostic Testing: Radiology Impression Chest X-Ray 01/25/21 10:27 IMPRESSION: No significant interval change in bilateral pneumonia or ARDS. at 1206 Reported and signed by: Cassandra Simms MD Electronically Signed: Cassandra Simms MD at 12:05 EDT Tel , Service support , Physical Exam Const no apparent distress General Appearance: ill appearing, intubated and patient mechanically ventilated Nutritional Appearance: obese HEENT normocephalic and head/scalp atraumatic Mouth: endotracheal tube in place and OG tube in place Eyes PERRL and conjunctivae normal Neck supple General: trachea midline Chest inspection of chest normal Resp Effort and Inspection: tachypneic Auscultation: diminished lung sounds; Negative for rales, rhonchi or wheezes Cardio S1 normal heart sound and S2 normal heart sound Rate: tachycardic GI normal to inspection, nondistended, normoactive bowel sounds Extremity General Extremity: edema bilateral lower extremity; Negative for clubbing Skin no rashes or lesions noted Neuro Sensorium / Orientation: sedated on vent Charges/Coding Procedures Hospitalists Procedures: [id number] Critial Care 1st Hr
[2021-01-26 07:22] LABS: Platelet Estimate MOD INC (ADEQ)
--- NOTE | 2021-01-26 07:43 | PN.HOSP_ITS ---
Subjective Subjective Patient remains on the vent with no change in FiO2 requirement. His kidney function continues to worsen with BUN up to 116 and creatinine of 4.28 Objective Data Objective Data Vital Signs: Vital Signs Temp Pulse Resp BP Pulse Ox 98.5 F 102 H 18 168/100 H 92 01/26/21 04:00 01/26/21 06:00 01/26/21 06:00 01/26/21 06:00 01/26/21 06:00 Oxygen Flow Rate (L/min) 8 Oxygen Delivery Method Mechanical Ventilator Weight: 122.3 kg Body Mass Index (BMI) 78.4 Intake & Output: Intake and Output for Last 24 Hours 01/24/21 01/25/21 01/26/21 23:59 23:59 23:59 Intake Total 1114.01 / 1142.17 1417.43 / 1568.66 1016.83 / 1016.83 Output Total 1100 / 1100 800 / 800 725 / 725 Balance 14.01 / 42.17 617.43 / 768.66 291.83 / 291.83 Lab / Micro Data Result Diagrams: 01/26/21 03:52 01/26/21 03:52 Labs: Laboratory Results - last 24 hr 01/25/21 10:50: Urine Color Yellow, Urine Clarity Cloudy, Urine pH 5.0, Ur Specific [place] 1.015, Urine Protein 30 H, Urine Glucose (UA) Normal, Urine Ketones Negative, Urine Occult Blood 250 H, Urine Nitrite Negative, Urine Bilirubin Negative, Urine Urobilinogen Normal, Ur Leukocyte Esterase 25 H, Urine RBC 25-50 SEEN, Urine WBC 0-5 SEEN, Ur Squamous Epith Cells 0-5 SEEN, Amorphous Sediment 2+, Urine Bacteria 2+, Fine Granular Casts 5-10 SEEN, Urine Mucus RARE 01/26/21 03:52: WBC 11.9 H, RBC 4.05 L, Hgb 12.8 L, Hct 38.1 L, MCV 94.1 H, MCH 31.6, MCHC 33.6, RDW Std Deviation 49.4 H, RDW Coeff of Anusha 14.3, Plt Count 544 H, MPV 9.6, Immature Gran % (Auto) 1.500 H, Neut % (Auto) 86.5 H, Lymph % (Auto) 2.2 L, [place] % (Auto) 8.2, Eos % (Auto) 1.1, Baso % (Auto) 0.5, Absolute Neuts (auto) 10.3 H, Absolute Lymphs (auto) 0.26 L, Nucleated RBC % 0, Platelet Estimate MOD INC 01/26/21 03:52: Sodium 140, Potassium 4.9, Chloride 103, Carbon Dioxide 26.0, Anion Gap 11, BUN 116 H*, Creatinine 4.28 H, Estim Creat Clear Calc 19.39, Est GFR (MDRD) Af Amer 18 L, Est GFR (MDRD) Non-Af 15 L, BUN/Creatinine Ratio 27.1 H , Glucose 130 H, Calcium 9.7, Total Bilirubin 1.00, AST 99 H, ALT 147 H, Alkaline Phosphatase 148 H, Total Protein 6.7, Albumin 1.3 L, Globulin 5.4 H, Albumin/Globulin Ratio 0.2 L Micro: Microbiology 01/18/21 06:45 Aspirate - Nose Gram Stain - Final 01/18/21 06:45 Aspirate - Nose Nasopharyngeal Culture - Final Staphylococcus aureus Gram positive mely 01/17/21 08:20 Sputum, Induced/Lukens Gram Stain - Final 01/17/21 08:20 Sputum, Induced/Lukens Respiratory Culture - Final Mixed normal respiratory [place]ange. No Streptococcus pneumoniae, beta-hemolytic Streptococcus or Staphylococcus aureus isolated. 01/11/21 08:35 Blood Culture (Wb) - Left Hand Blood Culture - Final No growth in 5 days. 01/11/21 08:20 Blood Culture (Wb) - Anticubital Left Blood Culture - Final No growth in 5 days. 01/11/21 08:30 Nasal Secretion SARS-CoV-2 Antigen (Rapid) - Final SARS-CoV-2 (COVID 19) ABG Data ABG results: ABG 01/26/21 04:48 Specimen Type ART Sample Site R Radial pH 7.37 Bicarbonate Actual 24.9 Total CO2 26 Base Excess 0 O2 Saturation 93 L O2 % 75 ABG pCO2 43.3 ABG pO2 71 L Rohit Test Positive Respiration Rate 12 O2 Delivery Device Adult Vent Vent Mode BiLevel Clinical Comments APRV PH 26 TH 4.5 Radiography Diagnostic Testing: Radiology Impression Chest X-Ray 01/25/21 10:27 IMPRESSION: No significant interval change in bilateral pneumonia or ARDS. at 1206 Reported and signed by: Cassandra Simms MD Electronically Signed: Cassandra Simms MD at 12:05 EDT Tel , Service support , Physical Exam Narrative GENERAL: Sedated on the vent HEENT: Atraumatic; EYES; Anicteric, Normal Conjunctiva NECK; supple, normal thyroid, RESPIRATORY: Diminished to auscultation CARDIOVASCULAR: Regular S1 S2, GI: soft, normoactive bowel sounds, : No Renal angle tenderness; EXTREMITIES: No edema, no clubbing, MUSCULOSKELETAL: no muscle waisting NEURO: Sedated on the vent SKIN: No Rash PSYCH; sedated on the vent Assessment & Plan Assessment/Plan (1) Pneumonia due to COVID-19 virus: (2) Acute respiratory failure with hypoxia: PLAN: Patient is a 65-year-old gentleman admitted with acute hypoxic respiratory failure secondary to Covid pneumonia. Was intubated on 01/17/2021. 1. Acute hypoxic respiratory failure ?Secondary to SARS-CoV-2 pneumonia. Patient has completed a course of remdesivir currently remains on Decadron and baricitinib. Patient was intubated on 01/17/2021. He apparently self extubated on the morning of 01/20/2021 and had to be reintubated. -01/21/2021;Patient seen still remains on the vent. Vent settings as per pulmonary medicine. WBC count slightly elevated at 14 -01/22/2021; patient seen remains on the vent with increasing oxygen demand. Currently on FiO2 of 85%. Sputum cultures came back positive for Staphylococcus aureus ;Gram positive mely -01/23/2021; patient remains sedated on the vent with no significant change in clinical condition -01/24/2021; Patient seen remains on the vent with increasing FiO2 requirements. Also remains heavily sedated -01/26/2021; remains on the vent with FiO2 of 75%. Vent management deferred to pulmonary/intensive care 2. Acute kidney injury ?Potential nephrotoxic medications held -01/22/2021; creatinine at 1.66 -01/25/2021. Creatinine up to 3.9 consult placed to nephrology patient was seen by Dr. Hayes's note and recommendations reviewed. 01/26/2021; kidney function continues to worsen with BUN of 216 and creatinine 4.28. Decision regarding possible dialysis deferred to nephrology 3. Essential hypertension ?Patient blood pressure on hold 4. Depression with anxiety ?Patient was Paxil prior to intubation 5. DVT prophylaxis ?Lovenox Charges/Coding Visit Charges Inpatient E&M: 26747 Subs Hosp L3
[2021-01-26] MEDS: Enoxaparin 40 MG/0.4 ML Syringe 30 MG SC (08:16)
[2021-01-26] MEDS: Chlorhexidine 15 ML PO (08:27)
[2021-01-26] MEDS: Senna/Docusate Sodium 1 Tablet 2 TABLET GT (08:27)
[2021-01-26] MEDS: Polyethylene Glycol 3350 17 GM PACKET GT (08:27)
[2021-01-26] MEDS: Paroxetine 20 MG Tablet 40 MG GT (08:29)
[2021-01-26] MEDS: Acetaminophen 650 MG/20 ML UDC GT (08:34)
[2021-01-26] MEDS: Labetalol (Prefilled) 20 MG/4 ML 10 MG IV (08:39)
--- NOTE | 2021-01-26 16:09 | NURSING ---
hr 60's bp 135/73 toes mottled, dr Mar updated, informed need to come in will make arrangements to come in [facility]
--- NOTE | 2021-01-26 16:13 | PN.RENAL_ITS ---
Subjective Subjective Apparently had mottling of the extremities. Events noted. Creatinine continues to get worse. Urine output is still present. Objective Data Objective Data Vital Signs: Vital Signs Temp Pulse Resp BP Pulse Ox 96.2 F L 69 19 H 126/71 H 91 01/26/21 12:00 01/26/21 14:10 01/26/21 14:10 01/26/21 13:00 01/26/21 14:10 Oxygen Flow Rate (L/min) 8 Oxygen Delivery Method Mechanical Ventilator Weight: 122.3 kg Body Mass Index (BMI) 78.4 Intake & Output: Intake and Output for Last 24 Hours 01/24/21 01/25/21 01/26/21 23:59 23:59 23:59 Intake Total 1114.01 / 1142.17 1417.43 / 1568.66 1264.56 / 1264.56 Output Total 1100 / 1100 800 / 800 1525 / 1525 Balance 14.01 / 42.17 617.43 / 768.66 -260.44 / -260.44 Lab / Micro Data Result Diagrams: 01/26/21 03:52 01/26/21 03:52 Labs: Laboratory Results - last 24 hr 01/26/21 03:52: WBC 11.9 H, RBC 4.05 L, Hgb 12.8 L, Hct 38.1 L, MCV 94.1 H, MCH 31.6, MCHC 33.6, RDW Std Deviation 49.4 H, RDW Coeff of Anusha 14.3, Plt Count 544 H, MPV 9.6, Immature Gran % (Auto) 1.500 H, Neut % (Auto) 86.5 H, Lymph % (Auto) 2.2 L, [place] % (Auto) 8.2, Eos % (Auto) 1.1, Baso % (Auto) 0.5, Absolute Neuts (auto) 10.3 H, Absolute Lymphs (auto) 0.26 L, Nucleated RBC % 0, Platelet Estimate MOD INC 01/26/21 03:52: Sodium 140, Potassium 4.9, Chloride 103, Carbon Dioxide 26.0, Anion Gap 11, BUN 116 H*, Creatinine 4.28 H, Estim Creat Clear Calc 19.39, Est GFR (MDRD) Af Amer 18 L, Est GFR (MDRD) Non-Af 15 L, BUN/Creatinine Ratio 27.1 H , Glucose 130 H, Calcium 9.7, Total Bilirubin 1.00, AST 99 H, ALT 147 H, Alkaline Phosphatase 148 H, Total Protein 6.7, Albumin 1.3 L, Globulin 5.4 H, Albumin/Globulin Ratio 0.2 L Micro: Microbiology 01/25/21 14:32 Sputum, Induced/Lukens Gram Stain - Final 01/25/21 14:32 Sputum, Induced/Lukens Respiratory Culture - Preliminary Staphylococcus aureus 01/25/21 10:50 Urine Catheter - Catheter Urine Culture - Preliminary Culture exhibits no growth. 01/18/21 06:45 Aspirate - Nose Gram Stain - Final 01/18/21 06:45 Aspirate - Nose Nasopharyngeal Culture - Final Staphylococcus aureus Gram positive mely 01/17/21 08:20 Sputum, Induced/Lukens Gram Stain - Final 01/17/21 08:20 Sputum, Induced/Lukens Respiratory Culture - Final Mixed normal respiratory solange. No Streptococcus pneumoniae, beta-hemolytic Streptococcus or Staphylococcus aureus isolated. 01/11/21 08:35 Blood Culture (Wb) - Left Hand Blood Culture - Final No growth in 5 days. 01/11/21 08:20 Blood Culture (Wb) - Anticubital Left Blood Culture - Final No growth in 5 days. 01/11/21 08:30 Nasal Secretion SARS-CoV-2 Antigen (Rapid) - Final SARS-CoV-2 (COVID 19) ABG Data ABG results: ABG 01/26/21 04:48 Specimen Type ART Sample Site R Radial pH 7.37 Bicarbonate Actual 24.9 Total CO2 26 Base Excess 0 O2 Saturation 93 L O2 % 75 ABG pCO2 43.3 ABG pO2 71 L Rohit Test Positive Respiration Rate 12 O2 Delivery Device Adult Vent Vent Mode BiLevel Clinical Comments APRV PH 26 TH 4.5 Physical Exam Narrative sedated, on ventilator no obvious distress no pallor no icterus no JVD s1s2 no murmurs lungs with coarse breath sound bilaterally abdomen soft no organomegaly no edema no cyanosis cooley + Assessment & Plan Assessment/Plan (1) CASSANDRA (acute kidney injury): PLAN: -Baseline creatinine is around 1.0-1.1 milligram per deciliter. -CASSANDRA is likely due to ischemic ATN. The patient is not oliguric. -Serum creatinine is up trending. However, the patient is not hyperkalemic, acidotic or severely volume overloaded. -Despite maximum support, BUN and creatinine are worse. Marked azotemia. Will likely need dialysis tomorrow. Will discuss with ICU attending. We will also discuss with family.
--- NOTE | 2021-01-26 17:07 | PCM.HOSP.N ---
Hospitalist Note Had discussion with patient and family regarding patient rapidly deteriorating condition. His blood pressure is dropping in addition to his heart rate. Did explain the current grave condition. Patient's opted to make comfortable. Went over CODE STATUS CODE STATUS was changed to DNR comfort care. An order was placed for terminal wean to be initiated and hospice/palliative care symptom management orders initiated. time spent 35min Procedures Hospitalists Procedures: [id number] Critial Care Addl 30 Min
--- NOTE | 2021-01-26 17:15 | NURSING ---
fAMILY @ bedside , son , [id number] talked with Dr Mar concerning code status have decided on DNRCC, will await arrival of additional family members for terminal extubation
--- NOTE | 2021-01-26 20:54 | NURSING ---
Family at bedside, family determines they are ready to withdraw care. [facility] called and release obtained. Will need to contact [facility] again with time or cardiac . Respiratory notified will prepare for terminal wean.
[2021-01-26] MEDS: Morphine 2 MG/ML Syringe IV (20:59)
[2021-01-26] MEDS: LORazepam 2 MG/ML Syringe IV ×2 (21:00→22:56)
[2021-01-26] MEDS: Ondansetron 4 MG/2 ML Vial IV (21:00)
--- NOTE | 2021-01-26 21:00 | NURSING ---
Restraints removed on patient prior to terminal extubation.
[2021-01-26] MEDS: Atropine Sulfate 1% 2 ml Bottle 4 DRP SL (21:36)
--- NOTE | 2021-01-26 21:42 | NURSING ---
2111:Romat RT at bedside with this RN, patient medicated as ordered and terminal wean initiated. 4: Family members brought to bedside. Will continue to monitor.
--- NOTE | 2021-01-26 22:00 | NURSING ---
Family remains at bedside. believes patient is comfortable per discussion with this RN, agonal breathing noted. Will continue to monitor.
[2021-01-26] MEDS: morphine (oral solution) 10MG/0.5ML Syringe 5 MG SL/PO (22:06)
[2021-01-26] MEDS: Morphine 2 MG/ML Syringe 4 MG IV ×2 (22:39→22:57)
--- NOTE | 2021-01-26 23:29 | NURSING ---
2311: no respirations or cardiac activity noted. No heart sounds noted. Time of called at 2311. Family remains at bedside.
--- NOTE | 2021-01-26 23:36 | NURSING ---
Brittney from [facility] gives referral # [phone], patient is not a candidate for donation. Body released.
--- NOTE | 2021-01-26 23:41 | NURSING ---
Ballast Cleaning Operator Anna Ortez notified of , no coroners case to be performed.
--- NOTE | 2021-01-26 23:56 | PCM.PN.BLA ---
Progress Note Notified by nursing team the patient positive on 01/26/2021 at 2310.
--- NOTE | 2021-01-26 23:57 | EXP.PCM_ITS ---
Preliminary Cause of Preliminary Cause of Preliminary Cause of : Acute hypoxemic respiratory failure secondary to severe acute respiratory syndrome from COVID-19 infection. Principle Diagnosis Problem List: Active and Suspected Problems (Updated 01/13/21 @ 15:[address] Tirso Munoz MD) CASSANDRA (acute kidney injury) (Acute) Acute respiratory failure with hypoxia (Acute) Pneumonia due to COVID-19 virus (Acute) Hypoxia (Acute) Hospital Course hpi: HERIBERTO LOMELI, is a 65 M who presented to [facility] emergency department with a chief complaint of shortness of breath. On presentation patient reported malaise. Also he reported that several family members have tested positive for COVID-19, patient is unvaccinated. Associated with his symptoms was diarrhea without nausea or vomiting. Further he had subjective fever; cough with clear sputum. Patient symptoms had been going on for 10 days before presentation. Lab work done in the emergency room showed the patient have a normal white blood cell count, his temperature was 100.4, patient required nasal cannula oxygen at 15 L to maintain his pulse ox. Chemistry pr ofile revealed a potassium of 3.3, patient's liver enzymes were elevated with an AST of 98, ALT of 86, alkaline phosphatase of 120. Patient had a chest x-ray which showed diffuse bilateral infiltrates. His rapid Covid antigen at the emergency department was positive. Patient was transitioned to BiPAP in the ER to maintain his oxygenation. Patient was admitted to ICU for COVID-19 pneumonia with acute hypoxic respiratory failure. Hospital course: Patient was seen by renal medicine physician and career resource specialist; and also by infectious disease specialist.. Patient was placed on remdesivir, de xamethasone; baricitinib; and Lovenox. Also he was placed on Lasix which was later discontinued due to interval development of CASSANDRA; restarted again to dry his lungs and discontinued again due to persistent CASSANDRA.. At the ICU initially patient was on BiPAP/Airvo. Pulmonary toileting with incentive spirometer was encouraged. Lopressor and hydrochlorothiazide was initiated for significant elevation in blood pressure. Remdesivir was stopped secondary to CASSANDRA. Baricitinib dose was adjusted based on GFR. Patient respiratory status worsened and patient required 100% of FiO2 on BiPAP. Eventually patient was intubated and placed on mechanical ventilation. The patient was placed on a prone position intermittently and ventilator setting set to APRV. Because of the patient's continuous respiratory failure and increasing sputum production the patient was started on antimicrobials. Sputum culture was taken and came back positive for Staphylococcus arrows; gram-positive rods. Patient was placed on tube feedings. Because of persistent CASSANDRA nephrology was consulted. Patient was on vancomycin and Zosyn. Vancomycin was stopped and Zosyn continued since MSSA was isolated on sputum culture.. Baricitinib was stopped due to worsening CASSANDRA. Because of persistent CASSANDRA nephrology was consulted ; recommendations made and nephrotoxins avoided. On 01/27/2021 upon discussion between care team and family; family elected to make patient comfortable. Comfort care measures including as needed morphine; as needed Ativan; as needed Robinul was ordered. Patient was terminally extubated per family directions. On 01/26/2021 at 2310 patient passed. Patient's was confirmed by 2 nurses and physician notified. Date of 01/26/2021. Time of : 2310 Immediate cause of (final disease of condition resulting in ): Acute respiratory failure duration: Days/month/years: Weeks Listed conditions leading to cause of (due to or as a consequence of) : COVID-19 pneumonia Day/month/years: Weeks CASSANDRA: Weeks Listed other significant conditions contributing to but not resulting in the underlying cause of : Hypertension. Did tobacco contribute to : Yes
--- NOTE | 2021-01-27 00:32 | NURSING ---
Nursing booth supervisor, Attending physician Dr Santos, and home notified. home will pick up driver patient in approximately 45 minutes to an hour.
== END 2021-01-26 23:10 | DRG 208 ==
LOC: ED 09:05 → ICU 09:24
PROVIDERS: Family Medicine; Internal Medicine Critical Care Medicine; Admitting Provider Internal Medicine; Emergency Provider Emergency Medicine; PCP Family Medicine; Visit Provider Internal Medicine
DX: U07.1 COVID-19 (principal); J12.82 Pneumonia due to coronavirus disease 2019; J96.01 Acute respiratory failure with hypoxia; N17.0 Acute kidney failure with tubular necrosis; Z68.45 Body mass index [BMI] 70 or greater, adult; B95.61 Methicillin susceptible Staphylococcus aureus infection as the cause of diseases classified elsewhere; I10 Essential (primary) hypertension; E66.9 Obesity, unspecified; E87.6 Hypokalemia; F17.290 Nicotine dependence, other tobacco product, uncomplicated; F32.A Depression, unspecified; F41.9 Anxiety disorder, unspecified; Z79.899 Other long term (current) drug therapy
CPT/HCPCS: 31500; 31720; 36600; 71045; 74018; 76770; 80048; 80053; 81001; 82550; 82803; 83605; 83735; 84478; 85025; 85379; 86140; 87040; 87070; 87077; 87086; 87186; 87205; 87426; 87635; 87641; 93005; 94002; 94003; 94640; 94667; 97110; 97162; 97166; 97530; 97802; 97803; 99251; 99285; 99406; J7040; J7050; U0005; A4216; G0463; J1940; J2405; J3010; U0003